=== PATIENT | female | born 1940 | race Caucasian/White ===

== ENCOUNTER 2016-11-28 08:43 | Inpatient (IN) | payer MEDICARE, OTHER ==
[~2016-11-28] VITALS: Ht 157.5 cm; Wt 74.6 kg
[2016-12-01] MEDS ORDERED: MIRALAX *UNIT DOSE* 17GM PACKET PO PRN (14:30)
[2016-12-01 15:15] VITALS: BP 169/72
[2016-12-01] MEDS: BRINZOLAMIDE 1 % OPHTH SUSP (AZOPT) 10ML OD SCH ×2 (16:00→20:31)
[2016-12-01] MEDS: cloNIDine 0.2 MG TAB PO SCH ×2 (16:00→20:30)
--- NOTE | 2016-12-01 16:33 | IPNPDOC ---
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 [Note: History obtained with the assistance of the patients daughterCatrina ] HISTORY OF PRESENT ILLNESS: Patient is a 76-year-old right hand dominant woman with a history of paroxysmal atrial fibrillation status post cardioversion on aspirin who was admitted to [facility] on 11/20/16 by her primary care physician with hypertension urgency. She had presented to her PCP due to persistently elevated blood pressure. Per the daughter she had also had an episode of lightheadedness the night before. Patient was provided with clonidine and labetalol in the office and sent to the emergency room. While at the hospital, patient had an episode of garbled speech and facial droop for which CT head was done and showed small left subarachnoid hemorrhage. The patient was transferred to [facility] were higher level of care. She was admitted to the neuro ICU service. She continued with episodic garbled speech. EEG was done without evidence of seizures. She began experiencing aphasia for which CT was done which was unchanged. MRA was also done and reportedly normal. After the MRA she began to develop right-sided weakness in addition to her aphasia. MRI of the [place] with brain was done and showed left MCA infarct. CT perfusion study was attempted after intubating the patient and premedicating her for her allergy. Patient also developed right lower extremity DVT during her [facility] on hospital stay. She was started on eliquis 5 mg twice a day. Hospital stay was also notable for difficulty controlling her blood pressure. She was discharged on 5 antihypertensive medications. She was also reportedly in urinary retention for which a Victor catheter was placed on 11/23/2016. Of note renal Doppler was done and negative for renal artery status stenosis, but technically difficult study. Due to significant decline in the patients baseline functional status and need for continued medical care, recommendation was for acute rehabilitation. On 2016 the patient was deemed stable for discharge to [facility] inpatient rehabilitation unit. PAST MEDICAL HISTORY: Hypertension Hypothyroidism Paroxysmal atrial fibrillation s/p cardioversion PAST SURGICAL HISTORY: Tonsillectomy many years ago Cardioversion many years ago. ALLERGIES: Contrast, shellfish, iodine MEDICATIONS: Hydrochlorothiazide 50 mg daily Norvasc 10 mg daily Eliquis 5 mg twice a day Lipitor 80 mg every evening Catapres 0.2 mg 3 times a day Labetalol 200 mg every 12 hours Cozaar 100 mg daily Magnesium gluconate 500 mg twice a day Synthyroid 15 g daily Potassium chloride 10 mEq daily Potassium citrate 10 mEq daily Azopt 1% 1 drop right eye tid Timolol 0.5% 1 drop both eyes qam Xalatan 0.005% 1 drop both eyes qpm FAMILY HISTORY: 2 daughters and 1 son, her son and daughter suffer from hypertension otherwise well. SOCIAL HISTORY: Patient lives in a two-story house, but there is a first floor set up. There are 2-3 steps to enter the house. Per the daughter they are able to build a ramp. Patient does not have a history of smoking, past or present. Per the daughter she has on history of rare/social alcohol use. No illicit drug use, past or present. Review of Systems: General: no chills, +fatigue, no weight changes. Eyes: no change of vision. Ears, Nose & Throat: no sore throat, decreased hearing or nasal discharge. Cardiovascular: no chest pain, claudication, syncopal episodes. Pul: +cough, no SOB. GI: no abdominal pain, N/V, +episode of diarrhea few days ago, last BM yesterday, formed. Genitourinary: currently w Victor for retention. Gynecological: no vaginal bleeding, post-menopausal . Musculoskeletal : no back/neck, no muscle pain. Neurological: +numbness right side, no tremors , seizures, HUTTON. Hematological: No bleeding disorders. Skin: no rashes. Psychiatric: no depression, anxiety, behavioral issues. VITAL SIGNS: Temperature 98.2F, pulse 59, respiratory rate of 18, blood pressure 169/72, 97% saturation on room air PHYSICAL EXAMINATION: GENERAL: Well nourished, well developed, sitting up in bed, no acute distress. HEENT: Normocephalic, atraumatic. +facial droop. PERRL, EOMI CARDIOVASCULAR: S1, S2, regular rate. No significant bilateral lower limb edema or calf tenderness. LUNGS: Decreased breath sounds throughout (possibly related to poor effort) no wheezing or rhonchi appreciated. ABDOMEN: Soft, nontender, nondistended. Positive normoactive bowel sounds throughout. NEUROLOGICAL: Alert and oriented to person and being in hospital. Able to answer yes or no, although answers not consistent. Comprehension about 50% of things asked. Dysarthric. Manual muscle testin/5 left upper and lower limbs in all major muscle groups, 0/5 right upper and lower limb in all major muscle groups. Sensation: Decreased right upper and lower limb to soft touch. Deep tendon reflexes: Unable to elicit patellar biceps bilaterally SKIN: Lg bruise left medial arm (prior PICC site). LABORATORY DATA: 11/21/2016: WBC count 8.1, hemoglobin 12.7, hematocrit 36.6 LDL 181 IMAGING: MRA of the brain: Brissa major arteries of the brain. No hemodynamically significant stenosis identified. There is no aneurysm or AV malformation or significant size dural fistula seen. No sinus thrombus seen. MRI of the brain: Left middle cerebral artery territory acute/subacute infarct. Left frontal lobe convexal subarachnoid nor hemorrhage. CT of the head: Expected evolution of known left MCA acute infarct without evidence of hemorrhagic transformation. No evidence of new territorial infarct. No significant interval change in the left frontal subarachnoid hemorrhage. CT perfusion: Perfusion deficit defect in the left temporoparietal lobe corresponding to the known acute infarct. No salvageable significant size penumbra seen. Focal narrowing in the middle left M1 segment. Posterior left vertebral artery appears occluded. Calcification is present in the carotid arteries and vertebral arteries associated with a focal narrowing in the In her segments of the internal carotid arteries especially on the right side where stenosis could easily be up to 50% severity. Chest x-ray: Persistent consolidation in the right infra inhaler area. Persistent consolidation in the left lower lobe. A small layering effusion is suspected. No definite definite evidence of edema. EKG: Sinus rhythm with sinus arrhythmia, left axis deviation, left bundle branch block, 77 beats per minute SERENA: There is no LA appendage thrombus. No patent foramen ovale. No aortic stenosis or regurgitation. Renal ultrasound: No hydronephrosis bilaterally. There is a 1.7 cm simple appearing cyst in the lower lobe of the left kidney. Doppler: Resistive indices in the right kidney are elevated with parvus tardua wave form. The right renal artery is only visualized at the hilum with velocities within normal limits. Flow is not optimally visualized or evaluated on the current study. ASSESSMENT AND PLAN: 1. Left MCA stroke, left frontal subarachnoid hemorrhage with resultant global aphasia, dysphagia, dysarthria, dense right hemiparesis, decreased mobility and dysfunctional ADLs: Maintain systolic blood pressure less than 140. Maintain eliquis as started at [facility]. Patient will undergo thorough physical, occupational and speech therapy evaluations followed by daily intensive therapy. Rehabilitation nursing for bladder, bowel, medication management. 2. Urinary retention: Will discontinue Victor catheter with bladder scans every 6 hours or PVRs, whichever comes first. Instruction provided to notify M.D. for volumes greater than 450cc. Will also obtain a sample for UA and culture. 3. Hypertension: As above, goal is for systolic blood pressure less than 140. She will continue patient on hydrochlorothiazide, Norvasc, Catapres, labetalol and losartan with adjustments as needed. 4. Electrolytes: Patient on potassium and magnesium supplementation. She is also noted to be on an ARB. Will obtain morning labs with adjustments/ supplementation as indicated. 5. Bowel: Patient was on bowel medications at [facility] and apparently had some loose stools several days ago. Her most recent stool was performed. Well maintain her on scheduled Colace and senna with milk of magnesia and MiraLAX on an as-needed basis. 6. Left lower limb DVT: Continued eliquis twice a day 7. Paroxysmal atrial fibrillation: Currently rate controlled and regular. Continue beta ja. Continue eliquis. 8. Diet/nutrition: Well obtain a prealbumin with morning labs. Continue pured diet, honey thick liquids, low-fat low-cholesterol. Nutritional supplements as indicated. POST ADMISSION PHYSICIAN EVALUATION: On evaluation of the patient today there' ve been no significant functional changes as compared to those noted in the preadmission screening document. As compared to the preadmission screening, the patient is a Victor catheter which was reportedly placed for urinary retention. This patient's inpatient rehabilitation remains necessary in light of the above conditions. The patient's medical condition requires specialized care with physicians specially trained in physical medicine rehabilitation. The patient is capable motivated to participate in a minimum of 3 hours of therapy daily, 5 days minimum per week, and requires intensive inpatient rehabilitation to improve their functional status so that they can be safely to discharge back to their home. PROGNOSIS: Fair ESTIMATED LENGTH OF STAY: 21 days. / Vital Signs Vital Sign - Last 24 Hours 12/01/16 15:15 Temp 98.2 Pulse 59 Resp 18 B/P 169/72 Pulse Ox 97 O2 Delivery Room Air Current Medications Current Medications Current Medications Acetaminophen (Tylenol Tab) 650 mg Q4HP PRN PO MILD PAIN (PS 1-4); Start at 14:30; Stop 12/31/16 at 14:29; Status UNV Amlodipine Besylate (Norvasc) 10 mg DAILY PO ; Start 12/02/16 at 09:00; Stop at 08:59; Status UNV Apixaban (Eliquis) 5 mg BID PO ; Start 12/01/16 at 21:00; Stop 12/08/16 at 20:59 ; Status UNV Atorvastatin Calcium (Lipitor) 80 mg QHS PO ; Start 12/01/16 at 21:00; Stop 09/06 at 20:59; Status UNV Brinzolamide (Azopt) 1 drop TID OD ; Start 12/01/16 at 16:00; Stop 12/31/16 at 15:59; Status UNV Clonidine HCl (Catapres) 0.2 mg TID PO ; Start 12/01/16 at 16:00; Stop 12/31/16 at 15:59; Status UNV Docusate Sodium (Colace) 100 mg BID PO ; Start 12/01/16 at 21:00; Stop 12/31/16 at 20:59; Status UNV Hydrochlorothiazide (Hydrodiuril) 25 mg DAILY PO ; Start 12/02/16 at 09:00; Stop 01/01/17 at 08:59; Status UNV Labetalol HCl (Normodyne, Trandate) 200 mg BID PO ; Start 12/01/16 at 21:00; Stop 12/31/16 at 20:59; Status UNV Latanoprost (Xalatan 0.005% Op Soln) 1 drop QHS OU ; Start 12/01/16 at 21:00; Stop 12/31/16 at 20:59; Status UNV Levothyroxine Sodium (Synthroid) 0.05 mg DAILY@06 PO ; Start 12/02/16 at 06:00; Stop 01/01/17 at 05:59; Status UNV Losartan Potassium (Cozaar) 100 mg DAILY PO ; Start 12/02/16 at 09:00; Stop at 08:59; Status UNV Magnesium Gluconate (Magnesium Gluconate) 500 mg BID PO ; Start 12/01/16 at 21: 00; Stop 12/31/16 at 20:59; Status UNV Magnesium Hydroxide (Milk Of Magnesia) 30 ml DAILYPRN PRN PO CONSTIPATION; Start 12/01/16 at 14:30; Stop 12/31/16 at 14:29; Status UNV Miscellaneous (Unresolved Clarification Entry) SEE LABEL COMMENTS UNRESOLVED XX ; Start 12/01/16 at 00:01; Stop 12/31/16 at 00:00 Pantoprazole Sodium (Protonix) 40 mg DAILY PO ; Start 12/02/16 at 09:00; Stop at 08:59; Status UNV Polyethylene Glycol (Miralax) 1 pkt DAILY PRN PO CONSTIPATION; Start 12/01/16 at 14:30; Stop 12/31/16 at 14:29; Status UNV Potassium Chloride (Micro-K Extencaps) 10 meq DAILY PO ; Start 12/02/16 at 09:00 ; Stop 01/01/17 at 08:59; Status UNV Potassium Citrate (Urocit-K) 1,080 mg DAILY@08 PO ; Start 12/02/16 at 08:00; Stop 01/01/17 at 07:59; Status UNV Senna (Senokot) 1 tab QHS PO ; Start 12/01/16 at 21:00; Stop 12/31/16 at 20:59; Status UNV Timolol Maleate (Timoptic 0.5% Ophth Janine) 1 drop DAILY OU ; Start 12/02/16 at 09 :00; Stop 01/01/17 at 08:59; Status UNV LORE GAINES MD Dec 01, 2016 16:32
[2016-12-01] MEDS ORDERED: AMLO10TA2 PO (17:40)
[2016-12-01] MEDS ORDERED: ATOR1TAB18 PO (17:40)
[2016-12-01] MEDS ORDERED: HYDR50TAB PO (17:40)
[2016-12-01] MEDS ORDERED: CLON0.2T PO (17:40)
[2016-12-01] MEDS ORDERED: ELIQ5TAB PO (17:40)
[2016-12-01] MEDS ORDERED: LOSA100T36 PO (17:40)
[2016-12-01] MEDS ORDERED: MAGN500T PO (17:40)
[2016-12-01] MEDS ORDERED: LABE20TAB PO (17:42)
[2016-12-01] MEDS ORDERED: VITA10005 PO (17:50)
[2016-12-01] MEDS ORDERED: AZOP0.2S OD (17:50)
[2016-12-01] MEDS ORDERED: POTA10TAB PO (17:50)
[2016-12-01] MEDS ORDERED: LEVO50TA45 PO (17:50)
[2016-12-01] MEDS ORDERED: LATA5OPD OU (17:50)
[2016-12-01] MEDS ORDERED: ISTA0.5S OU (17:50)
[2016-12-01] MEDS ORDERED: POTA10CA PO (17:50)
[2016-12-01] MEDS: PANTOPRAZOLE 40MG TAB (PROTONIX) PO SCH (18:33)
[2016-12-01 20:00] VITALS: BP 170/74
[2016-12-01] MEDS: MAGNESIUM GLUCONATE 500 MG TAB PO SCH (20:29)
[2016-12-01] MEDS: ATORVASTATIN 20 MG TAB PO SCH (20:29)
[2016-12-01] MEDS: LABETALOL 200 MG TAB PO SCH (20:30)
[2016-12-01] MEDS: APIXABAN 5 MG TAB (ELIQUIS) PO SCH (20:30)
[2016-12-01] MEDS: SENNA 8.6 MG TAB (SENOKOT) PO SCH (20:30)
[2016-12-01] MEDS: DOCUSATE SODIUM 100 MG CAP PO SCH (20:31)
[2016-12-01] MEDS: LATANOPROST 0.005% OPHTH SOLN 2.5 ML OU SCH (20:31)
[2016-12-01 21:50] VITALS: BP 150/60
[2016-12-02] MEDS: LEVOTHYROXINE 0.05 MG TAB (50 MCG) PO SCH (05:53)
[2016-12-02 06:00] VITALS: BP 170/72
[2016-12-02 07:29] LABS: MEAN CORPUSCULAR HEMOGLOBIN 30.1 pg (27.0-33.0); MEAN CORPUSCULAR HGB CONC 34.4 g/dl (32.0-36.5); MEAN CORPUSCULAR VOLUME 87.4 fl (80.0-96.0); RED CELL DISTRIBUTION WIDTH 14.3 % (11.5-14.5); WHITE BLOOD COUNT 9.4 K/mm3 (4.0-10.0)
[2016-12-02 07:51] LABS: CALCIUM LEVEL 8.7 MG/DL (8.8-10.2); CREATININE FOR GFR 1.09 MG/DL (0.55-1.02); GLOMERULAR FILTRATION RATE 52.1 (>39)
[2016-12-02] MEDS: POTASSIUM CITRATE 1080 MG (10MEQ) TAB PO SCH (08:38)
[2016-12-02] MEDS: TIMOLOL MALEATE 0.5% OPHTH SOLN 5 ML OU SCH (08:42)
[2016-12-02] MEDS: MAGNESIUM GLUCONATE 500 MG TAB PO SCH ×2 (08:42→21:30)
[2016-12-02] MEDS: APIXABAN 5 MG TAB (ELIQUIS) PO SCH ×2 (08:43→21:32)
[2016-12-02] MEDS: POTASSIUM CHLORIDE 10 MEQ SR TABLET PO SCH (08:43)
[2016-12-02] MEDS: PANTOPRAZOLE 40MG TAB (PROTONIX) PO SCH (08:44)
[2016-12-02] MEDS: LABETALOL 200 MG TAB PO SCH ×2 (08:49→21:31)
[2016-12-02] MEDS: amLODIPine 10 MG TAB PO SCH (08:49)
[2016-12-02] MEDS: LOSARTAN 50 MG TAB PO SCH (08:50)
[2016-12-02] MEDS: hydroCHLOROthiazide 25 MG TAB PO SCH (08:50)
[2016-12-02] MEDS: DOCUSATE SODIUM 100 MG CAP PO SCH ×2 (08:51→21:32)
[2016-12-02] MEDS: cloNIDine 0.2 MG TAB PO SCH ×3 (08:51→17:46)
[2016-12-02] MEDS: BRINZOLAMIDE 1 % OPHTH SUSP (AZOPT) 10ML OD SCH ×3 (08:51→21:32)
[2016-12-02 09:45] VITALS: BP 174/66
[2016-12-02] MEDS ORDERED: cloNIDine 0.1 MG TAB PO ONE (10:00)
[2016-12-02 12:24] VITALS: BP 118/50
--- NOTE | 2016-12-02 12:49 | IPNPDOC ---
Manager Spa Progress Note PROGRESS NOTE DATE OF SERVICE: 12/02/16 IDENTIFICATION STATEMENT: Patient is a 76-year-old right hand dominant woman with left MCA infarct admitted for comprehensive integrated inpatient rehabilitation. PAST MEDICAL HISTORY: Hypertension Hypothyroidism Paroxysmal atrial fibrillation s/p cardioversion PAST SURGICAL HISTORY: Tonsillectomy many years ago Cardioversion many years ago. ALLERGIES: Contrast, shellfish, iodine MEDICATIONS: Hydrochlorothiazide 25 mg daily Norvasc 10 mg daily Eliquis 5 mg twice a day Lipitor 80 mg every evening Catapres 0.2 mg qid Labetalol 400 mg every 12 hours Cozaar 100 mg daily Magnesium gluconate 500 mg twice a day Synthroid 15 g daily Potassium chloride 10 mEq daily Potassium citrate 10 mEq daily Azopt 1% 1 drop right eye tid Timolol 0.5% 1 drop both eyes qam Xalatan 0.005% 1 drop both eyes qpm SUBJECTIVE: Patient does not indicate any specific complaints. Via yes or no answers denies any CP, SOB, N/V, abdominal pain, HUTTON. VITAL SIGNS: Temperature 98.7F, pulse 64, respiratory rate of 18, blood pressure 118/50, 93% saturation on room air PHYSICAL EXAMINATION: GENERAL: Well nourished, well developed, sitting up in recliner, no acute distress. HEENT: Normocephalic, atraumatic. +facial droop (unchanged). PERRL, EOMI CARDIOVASCULAR: S1, S2, regular rate. No significant bilateral lower limb edema or calf tenderness. LUNGS: Decreased breath sounds throughout (possibly related to poor effort) no wheezing or rhonchi appreciated. ABDOMEN: Soft, nontender, nondistended. Positive normoactive bowel sounds throughout. NEUROLOGICAL: Alert and oriented to person and being in hospital. Able to answer yes or no, answers not consistent. Dysarthric. MMT: 5/5 left upper and lower limbs in all major muscle groups, 0/5 right upper and lower limb in all major muscle groups. SKIN: Lg bruise left medial arm (prior PICC site). LABORATORY DATA: 12/02/16: reviewed, see below. 11/21/2016: WBC count 8.1, hemoglobin 12.7, hematocrit 36.6 LDL 181 IMAGING: MRA of the brain: Brissa major arteries of the brain. No hemodynamically significant stenosis identified. There is no aneurysm or AV malformation or significant size dural fistula seen. No sinus thrombus seen. MRI of the brain: Left middle cerebral artery territory acute/subacute infarct. Left frontal lobe convexal subarachnoid nor hemorrhage. CT of the head: Expected evolution of known left MCA acute infarct without evidence of hemorrhagic transformation. No evidence of new territorial infarct. No significant interval change in the left frontal subarachnoid hemorrhage. CT perfusion: Perfusion deficit defect in the left temporoparietal lobe corresponding to the known acute infarct. No salvageable significant size penumbra seen. Focal narrowing in the middle left M1 segment. Posterior left vertebral artery appears occluded. Calcification is present in the carotid arteries and vertebral arteries associated with a focal narrowing in the In her segments of the internal carotid arteries especially on the right side where stenosis could easily be up to 50% severity. Chest x-ray: Persistent consolidation in the right infra inhaler area. Persistent consolidation in the left lower lobe. A small layering effusion is suspected. No definite definite evidence of edema. EKG: Sinus rhythm with sinus arrhythmia, left axis deviation, left bundle branch block, 77 beats per minute SERENA: There is no LA appendage thrombus. No patent foramen ovale. No aortic stenosis or regurgitation. Renal ultrasound: No hydronephrosis bilaterally. There is a 1.7 cm simple appearing cyst in the lower lobe of the left kidney. Doppler: Resistive indices in the right kidney are elevated with parvus tardua wave form. The right renal artery is only visualized at the hilum with velocities within normal limits. Flow is not optimally visualized or evaluated on the current study. ASSESSMENT AND PLAN: 1. Left MCA stroke, left frontal subarachnoid hemorrhage with resultant global aphasia, dysphagia, dysarthria, dense right hemiparesis, decreased mobility and dysfunctional ADLs: Maintain systolic blood pressure less than 140. Maintain eliquis. Continue daily therapies. Rehabilitation nursing for bladder, bowel, medication management. 2. Urinary retention: Discontinued Victor catheter last night. No significant retention thus far. 3. Hypertension: As above, goal is for systolic blood pressure less than 140. Improved s/p increase catapres. Continue hydrochlorothiazide, Norvasc, labetalol and losartan with adjustments as needed. 4. Electrolytes: Patient on potassium and magnesium supplementation. She is also noted to be on an ARB. If potassium increases will d/c potassium chloride supplementation. 5. Bowel: Continue scheduled Colace and senna with milk of magnesia and MiraLAX on an as-needed basis. 6. Left lower limb DVT: Continued eliquis twice a day 7. Paroxysmal atrial fibrillation: Currently rate controlled and regular. Continue beta aj. Continue eliquis. 8. Diet/nutrition: Prealbumin wnl. Continue pured diet, honey thick liquids, low-fat low-cholesterol. / Vital Signs Vital Sign - Last 24 Hours 12/01/16 12/01/16 12/01/16 12/01/16 15:15 20:00 20:00 20:30 Temp 98.2 98.6 Pulse 59 60 60 Resp 18 18 B/P 169/72 170/74 170/74 Pulse Ox 97 95 O2 Delivery Room Air Room Air Room Air 12/01/16 12/02/16 12/02/16 12/02/16 21:50 06:00 08:49 09:45 Temp 98.7 Pulse 63 64 64 Resp 18 B/P 150/60 170/72 164/70 174/66 Pulse Ox 93 O2 Delivery Room Air 12/02/16 12/02/16 12/02/16 12/02/16 10:06 10:55 12:00 12:24 Pulse 64 B/P 174/66 118/50 118/50 O2 Delivery Room Air Laboratory Data CBC/BMP Laboratory Tests 12/02/16 07:07 Calcium Level 8.7 L, Red Blood Count 3.63 L, Mean Corpuscular Volume 87.4, Mean Corpuscular Hemoglobin 30.1, Mean Corpuscular Hemoglobin Concent 34.4, Red Cell Distribution Width 14.3 Labs 24H Laboratory Tests 2 12/01/16 18:01: Urine Amorphous Sediment SMALLH, Urine Appearance CLEAR, Urine Color STRAW, Urine pH 7.0, Urine Specific [place] 1.012, Urine Protein NEGATIVE, Urine Glucose (UA) NEGATIVE, Urine Ketones NEGATIVE, Urine Urobilinogen 0.2, Urine Bilirubin NEGATIVE, Urine Leukocyte Esterase NEGATIVE, Urine Bacteria (Auto) 1+H , Urine Blood 2+H, Urine Calcium Carbonate Cryst(Auto) , Urine Calcium Oxalate Cryst (Auto) , Urine Calcium Phosphate Laura (Auto) , Urine Cellular Casts , Urine Cystine Crystals , Urine Granular Casts (Auto) , Urine Hyaline Casts (Auto ) 0, Urine Leucine Crystals , Urine Mucus (Auto) SMALL, Urine Nitrite NEGATIVE, Urine Oval Fat Bodies (Auto) , Urine RBC (Auto) 121H, Urine Renal Epithelial Cells , Urine Sperm (Auto) , Urine Squamous Epithelial Cells 0, Urine Transitional Epithelial Cells , Urine Trichomonas (Auto) , Urine Triple Phosphate Cryst (Auto) , Urine Tyrosine Crystals , Urine Uric Acid Crystals ( Auto) , Urine WBC (Auto) 3, Urine Waxy Casts (Auto) , Urine Yeast-Like Cells ( Auto) 12/02/16 07:07: Anion Gap 10, Blood Urea Nitrogen 22H, Creatinine 1.09H, Sodium Level 142, Potassium Level 4.0, Chloride Level 107, Carbon Dioxide Level 25, Calcium Level 8.7L, Glomerular Filtration Rate 52.1, Prealbumin 22.4 Microbiology Microbiology 12/01/16 Urine Culture, Received Pending Allergies Allergies: Coded Allergies: Iodine (Verified Allergy, Unknown, 12/01/16) Salicylates (Verified Allergy, Unknown, 12/01/16) Shellfish Allergy (Verified Allergy, Unknown, 12/01/16) Current Medications Current Medications Current Medications Acetaminophen (Tylenol Tab) 650 mg Q4HP PRN PO MILD PAIN (PS 1-4); Start at 14:30; Stop 12/31/16 at 14:29 Amlodipine Besylate (Norvasc) 10 mg DAILY PO Last administered on 12/02/16 08: 49; Start 12/02/16 at 09:00; Stop 01/01/17 at 08:59 Apixaban (Eliquis) 5 mg BID PO Last administered on 12/02/16 08:43; Start at 21:00; Stop 12/08/16 at 20:59 Atorvastatin Calcium (Lipitor) 80 mg QHS PO Last administered on 12/01/16 20: 29; Start 12/01/16 at 21:00; Stop 12/31/16 at 20:59 Brinzolamide (Azopt) 1 drop TID OD Last administered on 12/02/16 08:51; Start 12/01/16 at 16:00; Stop 12/31/16 at 15:59 Clonidine HCl (Catapres) 0.2 mg Q6H PO ; Start 12/02/16 at 12:00 Clonidine HCl (Catapres) 0.2 mg TID PO Last administered on 12/02/16 08:51; Start 12/01/16 at 16:00; Stop 12/02/16 at 09:31; Status DC Docusate Sodium (Colace) 100 mg BID PO Last administered on 12/01/16 20:31; Start 12/01/16 at 21:00; Stop 12/31/16 at 20:59 Home Med (Med Rec Complete!) ASDIRECTED XX ; Start 12/01/16 at 18:00; Stop at 18:00; Status DC Hydrochlorothiazide (Hydrodiuril) 25 mg DAILY PO Last administered on 08:50; Start 12/02/16 at 09:00; Stop 01/01/17 at 08:59 Labetalol HCl (Normodyne, Trandate) 400 mg BID PO Last administered on 08:49; Start 12/01/16 at 21:00; Stop 12/31/16 at 20:59 Latanoprost (Xalatan 0.005% Op Soln) 1 drop QHS OU Last administered on 20:31; Start 12/01/16 at 21:00; Stop 12/31/16 at 20:59 Levothyroxine Sodium (Synthroid) 0.05 mg DAILY@06 PO Last administered on 05:53; Start 12/02/16 at 06:00; Stop 01/01/17 at 05:59 Losartan Potassium (Cozaar) 100 mg DAILY PO Last administered on 12/02/16 08: 50; Start 12/02/16 at 09:00; Stop 01/01/17 at 08:59 Magnesium Gluconate (Magnesium Gluconate) 500 mg BID PO Last administered on 08:42; Start 12/01/16 at 21:00; Stop 12/31/16 at 20:59 Magnesium Hydroxide (Milk Of Magnesia) 30 ml DAILYPRN PRN PO CONSTIPATION; Start 12/01/16 at 14:30; Stop 12/31/16 at 14:29 Miscellaneous (Unresolved Clarification Entry) SEE LABEL COMMENTS UNRESOLVED XX ; Start 12/01/16 at 00:01; Stop 12/01/16 at 17:54; Status DC Pantoprazole Sodium (Protonix) 40 mg DAILY PO Last administered on 12/02/16 08 :44; Start 12/01/16 at 09:00; Stop 12/31/16 at 08:59 Polyethylene Glycol (Miralax) 1 pkt DAILYPRN PRN PO CONSTIPATION; Start at 14:30; Stop 12/31/16 at 14:29 Potassium Chloride (Micro-K Extencaps) 10 meq DAILY PO Last administered on 08:43; Start 12/02/16 at 09:00; Stop 01/01/17 at 08:59 Potassium Citrate (Urocit-K) 1,080 mg DAILY@08 PO Last administered on 08:38; Start 12/02/16 at 08:00; Stop 01/01/17 at 07:59 Senna (Senokot) 1 tab QHS PO Last administered on 12/01/16 20:30; Start at 21:00; Stop 12/31/16 at 20:59 Timolol Maleate (Timoptic 0.5% Ophth Janine) 1 drop DAILY OU Last administered on 12/02/16 08:42; Start 12/02/16 at 09:00; Stop 01/01/17 at 08:59 LORE GAINES MD Dec 02, 2016 12:49
[2016-12-02 14:00] VITALS: BP 125/68
[2016-12-02 17:45] VITALS: BP 140/62
[2016-12-02 20:00] VITALS: BP 170/62
[2016-12-02] MEDS: ATORVASTATIN 20 MG TAB PO SCH (21:30)
[2016-12-02] MEDS: SENNA 8.6 MG TAB (SENOKOT) PO SCH (21:32)
[2016-12-02] MEDS: LATANOPROST 0.005% OPHTH SOLN 2.5 ML OU SCH (21:32)
[2016-12-03] MEDS: cloNIDine 0.2 MG TAB PO SCH ×4 (00:06→17:34)
[2016-12-03] MEDS: LEVOTHYROXINE 0.05 MG TAB (50 MCG) PO SCH (06:13)
[2016-12-03] MEDS: DOCUSATE SODIUM 100 MG CAP PO SCH ×2 (08:09→21:47)
[2016-12-03 08:26] LABS: MEAN CORPUSCULAR HEMOGLOBIN 28.9 pg (27.0-33.0); MEAN CORPUSCULAR HGB CONC 32.9 g/dl (32.0-36.5); MEAN CORPUSCULAR VOLUME 87.7 fl (80.0-96.0); RED CELL DISTRIBUTION WIDTH 14.1 % (11.5-14.5)
[2016-12-03 08:28] LABS: CREATININE FOR GFR 1.35 MG/DL (0.55-1.02); GLOMERULAR FILTRATION RATE 40.7 (>39); POTASSIUM SERUM 3.7 MEQ/L (3.5-5.1)
[2016-12-03] MEDS: POTASSIUM CHLORIDE 10 MEQ SR TABLET PO SCH (09:22)
[2016-12-03] MEDS: POTASSIUM CITRATE 1080 MG (10MEQ) TAB PO SCH (09:22)
[2016-12-03] MEDS: LOSARTAN 50 MG TAB PO SCH (09:23)
[2016-12-03] MEDS: LABETALOL 200 MG TAB PO SCH ×2 (09:23→21:46)
[2016-12-03] MEDS: APIXABAN 5 MG TAB (ELIQUIS) PO SCH ×2 (09:24→21:46)
[2016-12-03] MEDS: PANTOPRAZOLE 40MG TAB (PROTONIX) PO SCH (09:24)
[2016-12-03] MEDS: hydroCHLOROthiazide 25 MG TAB PO SCH (09:24)
[2016-12-03] MEDS: amLODIPine 10 MG TAB PO SCH (09:24)
[2016-12-03] MEDS: BRINZOLAMIDE 1 % OPHTH SUSP (AZOPT) 10ML OD SCH ×3 (09:24→21:55)
[2016-12-03] MEDS: MAGNESIUM GLUCONATE 500 MG TAB PO SCH ×2 (09:24→21:46)
[2016-12-03] MEDS: TIMOLOL MALEATE 0.5% OPHTH SOLN 5 ML OU SCH (09:25)
--- NOTE | 2016-12-03 12:07 | IPNPDOC ---
Schedule Manager Progress Note PROGRESS NOTE DATE OF SERVICE: 12/03/16 IDENTIFICATION STATEMENT: Patient is a 76-year-old right hand dominant woman with left MCA infarct admitted for comprehensive integrated inpatient rehabilitation. PAST MEDICAL HISTORY: Hypertension Hypothyroidism Paroxysmal atrial fibrillation s/p cardioversion PAST SURGICAL HISTORY: Tonsillectomy many years ago Cardioversion many years ago. ALLERGIES: Contrast, shellfish, iodine MEDICATIONS: Hydrochlorothiazide 25 mg daily Norvasc 10 mg daily Catapres 0.2 mg qid Labetalol 400 mg every 12 hours Cozaar 100 mg daily Eliquis 5 mg twice a day Lipitor 80 mg every evening Magnesium gluconate 500 mg twice a day Synthroid 15 g daily Potassium chloride 10 mEq daily Potassium citrate 10 mEq daily Azopt 1% 1 drop right eye tid Timolol 0.5% 1 drop both eyes qam Xalatan 0.005% 1 drop both eyes qpm SUBJECTIVE: Patient does any issues. Denies any CP, SOB, N/V, abdominal pain, HUTTON. When asked how she felt said good VITAL SIGNS: Temperature 98.1F, pulse 80, respiratory rate of 17, blood pressure 152/79, 95% saturation on room air PHYSICAL EXAMINATION: GENERAL: Well nourished, well developed, sitting up in recliner, no acute distress. HEENT: Normocephalic, atraumatic. +right facial droop (unchanged). PERRL, EOMI CARDIOVASCULAR: S1, S2, regular rate. No significant bilateral lower limb edema or calf tenderness. LUNGS: Decreased breath sounds throughout (possibly related to poor effort) no wheezing or rhonchi appreciated. ABDOMEN: Soft, nontender, nondistended. Normoactive bowel sounds throughout. NEUROLOGICAL: Alert and oriented to person and being in hospital. Able to answer yes or no, answers remain inconsistent. Said good, dysarthric. MMT: 5/ 5 left upper and lower limbs in all major muscle groups, 0/5 right upper and lower limb in all major muscle groups. SKIN: Lg bruise left medial arm (prior PICC site), unchanged. LABORATORY DATA: 12/03/16: reviewed, see below. 11/21/2016: WBC count 8.1, hemoglobin 12.7, hematocrit 36.6 LDL 181 IMAGING: MRA of the brain: Brissa major arteries of the brain. No hemodynamically significant stenosis identified. There is no aneurysm or AV malformation or significant size dural fistula seen. No sinus thrombus seen. MRI of the brain: Left middle cerebral artery territory acute/subacute infarct. Left frontal lobe convexal subarachnoid nor hemorrhage. CT of the head: Expected evolution of known left MCA acute infarct without evidence of hemorrhagic transformation. No evidence of new territorial infarct. No significant interval change in the left frontal subarachnoid hemorrhage. CT perfusion: Perfusion deficit defect in the left temporoparietal lobe corresponding to the known acute infarct. No salvageable significant size penumbra seen. Focal narrowing in the middle left M1 segment. Posterior left vertebral artery appears occluded. Calcification is present in the carotid arteries and vertebral arteries associated with a focal narrowing in the In her segments of the internal carotid arteries especially on the right side where stenosis could easily be up to 50% severity. Chest x-ray: Persistent consolidation in the right infra inhaler area. Persistent consolidation in the left lower lobe. A small layering effusion is suspected. No definite definite evidence of edema. EKG: Sinus rhythm with sinus arrhythmia, left axis deviation, left bundle branch block, 77 beats per minute SERENA: There is no LA appendage thrombus. No patent foramen ovale. No aortic stenosis or regurgitation. Renal ultrasound: No hydronephrosis bilaterally. There is a 1.7 cm simple appearing cyst in the lower lobe of the left kidney. Doppler: Resistive indices in the right kidney are elevated with parvus tardua wave form. The right renal artery is only visualized at the hilum with velocities within normal limits. Flow is not optimally visualized or evaluated on the current study. ASSESSMENT AND PLAN: 1. Left MCA stroke, left frontal subarachnoid hemorrhage with resultant global aphasia, dysphagia, dysarthria, dense right hemiparesis, decreased mobility and dysfunctional ADLs: Maintain systolic blood pressure less than 140. Maintain eliquis. Continue daily therapies. Rehabilitation nursing for bladder, bowel, medication management. 2. ALEKSANDER: UCx neg. No retention. Likely prerenal (neg fluid balance via I&Os). Will hold HCTZ for now. Continue Cozaar for now. Will increase catapres if needed. Obtaining repeat swallow to see if patient can be upgraded to thin liq. 3. Urinary retention: Discontinued Victor catheter on day of admission. Only 1 scan out of 5 relative high. most recent w/o significant retention. Will d/c BS. 4. Hypertension: As above, goal is for systolic blood pressure less than 140. Improved s/p increase catapres. Continue Norvasc, labetalol and losartan. As above, holding HCTZ 2nd ALEKSANDER. Further adjustments as needed. 5. Electrolytes: Patient was on potassium, now d/cd 2nd d/c ing HCTZ. Awaiting Mag level, continue magnesium supplementation for now. 6. Bowel: Continue scheduled Colace and senna with milk of magnesia and MiraLAX on an as-needed basis. 7. Left lower limb DVT: Continued eliquis twice a day 8. Paroxysmal atrial fibrillation: Currently regular and rate controlled. Continue beta aj. Continue eliquis. 9. Diet/nutrition: Prealbumin wnl. Continue pured diet, honey thick liquids, low-fat low-cholesterol. Awaiting repeat swallow eval. / Vital Signs Vital Sign - Last 24 Hours 12/02/16 12/02/16 12/02/16 12/02/16 12:24 14:00 17:45 17:46 Temp 99.2 Pulse 64 62 59 Resp 18 B/P 118/50 125/68 140/62 140/62 Pulse Ox 96 O2 Delivery Room Air 12/02/16 12/02/16 12/02/16 12/03/16 20:00 20:00 21:31 00:06 Temp 98.5 Pulse 60 59 Resp 17 B/P 170/62 168/66 170/74 Pulse Ox 95 O2 Delivery Room Air Room Air 12/03/16 12/03/16 12/03/16 12/03/16 06:00 06:13 09:00 09:23 Temp 98.1 B/P 147/68 152/79 O2 Delivery Room Air 12/03/16 12/03/16 09:23 09:24 Pulse 80 80 B/P 152/79 152/79 Laboratory Data CBC/BMP Laboratory Tests 12/03/16 07:50 Calcium Level 9.0, Red Blood Count 3.67 L, Mean Corpuscular Volume 87.7, Mean Corpuscular Hemoglobin 28.9, Mean Corpuscular Hemoglobin Concent 32.9, Red Cell Distribution Width 14.1 Labs 24H Laboratory Tests 2 12/03/16 07:50: Anion Gap 11, Blood Urea Nitrogen 25H, Creatinine 1.35H, Sodium Level 140, Potassium Level 3.7, Chloride Level 104, Carbon Dioxide Level 25, Calcium Level 9.0, Glomerular Filtration Rate 40.7 Microbiology Microbiology 12/01/16 Urine Culture - Final, Complete Allergies Allergies: Coded Allergies: Iodine (Verified Allergy, Unknown, 12/01/16) Salicylates (Verified Allergy, Unknown, 12/01/16) Shellfish Allergy (Verified Allergy, Unknown, 12/01/16) Current Medications Current Medications Current Medications Acetaminophen (Tylenol Tab) 650 mg Q4HP PRN PO MILD PAIN (PS 1-4); Start at 14:30; Stop 12/31/16 at 14:29 Amlodipine Besylate (Norvasc) 10 mg DAILY PO Last administered on 12/03/16 09: 24; Start 12/02/16 at 09:00; Stop 01/01/17 at 08:59 Apixaban (Eliquis) 5 mg BID PO Last administered on 12/03/16 09:24; Start at 21:00; Stop 12/08/16 at 20:59 Atorvastatin Calcium (Lipitor) 80 mg QHS PO Last administered on 12/02/16 21: 30; Start 12/01/16 at 21:00; Stop 12/31/16 at 20:59 Brinzolamide (Azopt) 1 drop TID OD Last administered on 12/03/16 09:24; Start 12/01/16 at 16:00; Stop 12/31/16 at 15:59 Clonidine HCl (Catapres) 0.2 mg Q6H PO Last administered on 12/03/16 06:13; Start 12/02/16 at 12:00; Stop 01/01/17 at 11:59 Clonidine HCl (Catapres) 0.2 mg TID PO Last administered on 12/02/16 08:51; Start 12/01/16 at 16:00; Stop 12/02/16 at 09:31; Status DC Docusate Sodium (Colace) 100 mg BID PO Last administered on 12/02/16 21:32; Start 12/01/16 at 21:00; Stop 12/31/16 at 20:59 Home Med (Med Rec Complete!) ASDIRECTED XX ; Start 12/01/16 at 18:00; Stop at 18:00; Status DC Hydrochlorothiazide (Hydrodiuril) 25 mg DAILY PO Last administered on 09:24; Start 12/02/16 at 09:00; Stop 12/03/16 at 11:46; Status DC Labetalol HCl (Normodyne, Trandate) 400 mg BID PO Last administered on 09:23; Start 12/01/16 at 21:00; Stop 12/31/16 at 20:59 Latanoprost (Xalatan 0.005% Op Soln) 1 drop QHS OU Last administered on 21:32; Start 12/01/16 at 21:00; Stop 12/31/16 at 20:59 Levothyroxine Sodium (Synthroid) 0.05 mg DAILY@06 PO Last administered on 06:13; Start 12/02/16 at 06:00; Stop 01/01/17 at 05:59 Losartan Potassium (Cozaar) 100 mg DAILY PO Last administered on 12/03/16 09: 23; Start 12/02/16 at 09:00; Stop 01/01/17 at 08:59 Magnesium Gluconate (Magnesium Gluconate) 500 mg BID PO Last administered on 09:24; Start 12/01/16 at 21:00; Stop 12/31/16 at 20:59 Magnesium Hydroxide (Milk Of Magnesia) 30 ml DAILYPRN PRN PO CONSTIPATION; Start 12/01/16 at 14:30; Stop 12/31/16 at 14:29 Miscellaneous (Unresolved Clarification Entry) SEE LABEL COMMENTS UNRESOLVED XX ; Start 12/01/16 at 00:01; Stop 12/01/16 at 17:54; Status DC Pantoprazole Sodium (Protonix) 40 mg DAILY PO Last administered on 12/03/16 09 :24; Start 12/01/16 at 09:00; Stop 12/31/16 at 08:59 Polyethylene Glycol (Miralax) 1 pkt DAILYPRN PRN PO CONSTIPATION; Start at 14:30; Stop 12/31/16 at 14:29 Potassium Chloride (Micro-K Extencaps) 10 meq DAILY PO Last administered on 09:22; Start 12/02/16 at 09:00; Stop 12/03/16 at 12:00; Status DC Potassium Citrate (Urocit-K) 1,080 mg DAILY@08 PO Last administered on 09:22; Start 12/02/16 at 08:00; Stop 01/01/17 at 07:59 Senna (Senokot) 1 tab QHS PO Last administered on 12/02/16 21:32; Start at 21:00; Stop 12/31/16 at 20:59 Timolol Maleate (Timoptic 0.5% [facility]) 1 drop DAILY OU Last administered on 12/03/16 09:25; Start 12/02/16 at 09:00; Stop 01/01/17 at 08:59 LORE GAINES MD Dec 03, 2016 12:07
[2016-12-03 13:09] LABS: MAGNESIUM LEVEL 1.9 MG/DL (1.8-2.4)
[2016-12-03 14:01] VITALS: BP 110/53
[2016-12-03 20:00] VITALS: BP 144/63
[2016-12-03] MEDS: SENNA 8.6 MG TAB (SENOKOT) PO SCH (21:46)
[2016-12-03] MEDS: ATORVASTATIN 20 MG TAB PO SCH (21:46)
[2016-12-03] MEDS: LATANOPROST 0.005% OPHTH SOLN 2.5 ML OU SCH (21:55)
[2016-12-04] MEDS: cloNIDine 0.2 MG TAB PO SCH ×4 (00:27→18:38)
[2016-12-04 06:00] VITALS: BP 157/68
[2016-12-04] MEDS: LEVOTHYROXINE 0.05 MG TAB (50 MCG) PO SCH (06:36)
[2016-12-04 07:37] LABS: MEAN CORPUSCULAR HEMOGLOBIN 28.7 pg (27.0-33.0); MEAN CORPUSCULAR HGB CONC 33.1 g/dl (32.0-36.5); MEAN CORPUSCULAR VOLUME 86.6 fl (80.0-96.0); RED CELL DISTRIBUTION WIDTH 14.4 % (11.5-14.5)
[2016-12-04 07:58] LABS: CALCIUM LEVEL 9.2 MG/DL (8.8-10.2); CREATININE FOR GFR 1.56 MG/DL (0.55-1.02); GLOMERULAR FILTRATION RATE 34.4 (>39)
[2016-12-04] MEDS: POTASSIUM CITRATE 1080 MG (10MEQ) TAB PO SCH (08:52)
[2016-12-04] MEDS: amLODIPine 10 MG TAB PO SCH (08:52)
[2016-12-04] MEDS: PANTOPRAZOLE 40MG TAB (PROTONIX) PO SCH (08:53)
[2016-12-04] MEDS: APIXABAN 5 MG TAB (ELIQUIS) PO SCH ×2 (08:53→21:38)
[2016-12-04] MEDS: MAGNESIUM GLUCONATE 500 MG TAB PO SCH ×2 (08:53→21:38)
[2016-12-04] MEDS: LOSARTAN 50 MG TAB PO SCH (08:53)
[2016-12-04] MEDS: LABETALOL 200 MG TAB PO SCH ×2 (08:54→21:38)
[2016-12-04] MEDS: TIMOLOL MALEATE 0.5% OPHTH SOLN 5 ML OU SCH (08:56)
[2016-12-04] MEDS: DOCUSATE SODIUM 100 MG CAP PO SCH ×2 (08:56→21:38)
[2016-12-04] MEDS: BRINZOLAMIDE 1 % OPHTH SUSP (AZOPT) 10ML OD SCH ×3 (08:56→21:38)
[2016-12-04] MEDS ORDERED: VARIBAR PUDDING 40% w/v 230ML TUBE As Ordered ONE (10:35)
[2016-12-04] MEDS ORDERED: VARIBAR NECTAR 40% w/v 240ML SUSP BTL As Ordered ONE (10:36)
[2016-12-04] MEDS ORDERED: E-Z PAQUE 60% w/v SUSP 355ML BOTTLE As Ordered ONE (10:36)
[2016-12-04] MEDS: NS 1,000 ML IV SCH (11:21)
--- NOTE | 2016-12-04 11:44 | IPNPDOC ---
Pit Manager Progress Note PROGRESS NOTE DATE OF SERVICE: 12/04/16 IDENTIFICATION STATEMENT: Patient is a 76-year-old right hand dominant woman with left MCA infarct admitted for comprehensive integrated inpatient rehabilitation. PAST MEDICAL HISTORY: Hypertension Hypothyroidism Paroxysmal atrial fibrillation s/p cardioversion PAST SURGICAL HISTORY: Tonsillectomy many years ago Cardioversion many years ago. ALLERGIES: Contrast, shellfish, iodine MEDICATIONS: Hydrochlorothiazide 25 mg daily-on hold Norvasc 10 mg daily Catapres 0.2 mg qid Labetalol 400 mg every 12 hours Cozaar 100 mg daily Eliquis 5 mg twice a day Lipitor 80 mg every evening Magnesium gluconate 500 mg twice a day Synthroid 15 g daily Potassium chloride 10 mEq daily- on hold Potassium citrate 10 mEq daily Azopt 1% 1 drop right eye tid Timolol 0.5% 1 drop both eyes qam Xalatan 0.005% 1 drop both eyes qpm SUBJECTIVE: Denies any CP, SOB, N/V, abdominal pain, HUTTON. VITAL SIGNS: Temperature 98.1F, pulse 70, respiratory rate of 17, blood pressure 140/62, 95% saturation on room air PHYSICAL EXAMINATION: GENERAL: Well nourished, well developed, sitting up in recliner, no acute distress. HEENT: Normocephalic, atraumatic. +right facial droop (unchanged). PERRL, EOMI CARDIOVASCULAR: S1, S2, regular rate. No significant bilateral lower limb edema or calf tenderness. LUNGS: Decreased breath sounds throughout (possibly related to poor effort) no wheezing or rhonchi appreciated. ABDOMEN: Soft, nontender, nondistended. Normoactive bowel sounds throughout. NEUROLOGICAL: Alert and oriented to person and being in hospital. Able to answer yes or no, answers remain inconsistent. Dysarthric. MMT: 5/5 left upper and lower limbs in all major muscle groups, 0/5 right upper and lower limb in all major muscle groups. SKIN: Lg bruise left medial arm (prior PICC site), unchanged. LABORATORY DATA: 12/04/16: reviewed, see below. 11/21/2016: WBC count 8.1, hemoglobin 12.7, hematocrit 36.6 LDL 181 IMAGING: MRA of the brain: Brissa major arteries of the brain. No hemodynamically significant stenosis identified. There is no aneurysm or AV malformation or significant size dural fistula seen. No sinus thrombus seen. MRI of the brain: Left middle cerebral artery territory acute/subacute infarct. Left frontal lobe convexal subarachnoid nor hemorrhage. CT of the head: Expected evolution of known left MCA acute infarct without evidence of hemorrhagic transformation. No evidence of new territorial infarct. No significant interval change in the left frontal subarachnoid hemorrhage. CT perfusion: Perfusion deficit defect in the left temporoparietal lobe corresponding to the known acute infarct. No salvageable significant size penumbra seen. Focal narrowing in the middle left M1 segment. Posterior left vertebral artery appears occluded. Calcification is present in the carotid arteries and vertebral arteries associated with a focal narrowing in the In her segments of the internal carotid arteries especially on the right side where stenosis could easily be up to 50% severity. Chest x-ray: Persistent consolidation in the right infra inhaler area. Persistent consolidation in the left lower lobe. A small layering effusion is suspected. No definite definite evidence of edema. EKG: Sinus rhythm with sinus arrhythmia, left axis deviation, left bundle branch block, 77 beats per minute SERENA: There is no LA appendage thrombus. No patent foramen ovale. No aortic stenosis or regurgitation. Renal ultrasound: No hydronephrosis bilaterally. There is a 1.7 cm simple appearing cyst in the lower lobe of the left kidney. Doppler: Resistive indices in the right kidney are elevated with parvus tardua wave form. The right renal artery is only visualized at the hilum with velocities within normal limits. Flow is not optimally visualized or evaluated on the current study. ASSESSMENT AND PLAN: 1. Left MCA stroke, left frontal subarachnoid hemorrhage with resultant global aphasia, dysphagia, dysarthria, dense right hemiparesis, decreased mobility and dysfunctional ADLs: Maintain systolic blood pressure less than 140. Maintain eliquis. Continue daily therapies. Rehabilitation nursing for bladder, bowel, medication management. 2. ALEKSANDER: UCx neg. No retention. Likely prerenal (neg fluid balance via I&Os). Holding HCTZ for now. Gentle IV hydration, daily weights to monitor fluid balance. Continue Cozaar for now. Continue catapres current dose. S/p Barium swallow and cleared for thin liquids. 3. Urinary retention: Discontinued Victor catheter on day of admission and BS w/ o significant retention. 4. Hypertension: As above, goal is for systolic blood pressure less than 140. Improved s/p increase catapres. Continue Norvasc, labetalol and losartan. As above, holding HCTZ 2nd ALEKSANDER. Further adjustments as needed. 5. Electrolytes: Patient was on potassium, now d/cd 2nd d/c ing HCTZ. Awaiting Mag level, continue magnesium supplementation for now. 6. Bowel: Continue scheduled Colace and senna with milk of magnesia and MiraLAX on an as-needed basis. 7. Left lower limb DVT: Continued eliquis twice a day 8. Paroxysmal atrial fibrillation: Currently regular and rate controlled. Continue beta aj. Continue eliquis. 9. Diet/nutrition: Prealbumin wnl. Upgraded to [facility] soft, thin liquids. low-fat low-cholesterol. / Vital Signs Vital Sign - Last 24 Hours 12/03/16 12/03/16 12/03/16 12/03/16 12:00 14:01 17:34 20:00 Temp 98.3 98.2 Pulse 57 55 Resp 18 17 B/P 110/53 110/53 109/53 144/63 Pulse Ox 96 96 O2 Delivery Room Air Room Air 12/03/16 12/03/16 12/04/16 12/04/16 20:00 21:46 00:27 06:00 Temp 98.1 Pulse 55 67 Resp 17 B/P 144/63 160/70 157/68 Pulse Ox 95 O2 Delivery Room Air Room Air 12/04/16 12/04/16 12/04/16 06:36 08:00 08:52 Pulse 70 B/P 157/68 140/62 O2 Delivery Room Air Laboratory Data CBC/BMP Laboratory Tests 12/04/16 07:05 Calcium Level 9.2, Red Blood Count 3.69 L, Mean Corpuscular Volume 86.6, Mean Corpuscular Hemoglobin 28.7, Mean Corpuscular Hemoglobin Concent 33.1, Red Cell Distribution Width 14.4 Labs 24H Laboratory Tests 2 12/04/16 07:05: Anion Gap 11, Blood Urea Nitrogen 33H, Creatinine 1.56H, Sodium Level 139, Potassium Level 4.0, Chloride Level 102, Carbon Dioxide Level 26, Calcium Level 9.2, Glomerular Filtration Rate 34.4L Microbiology Microbiology 12/01/16 Urine Culture - Final, Complete Allergies Allergies: Coded Allergies: Iodine (Verified Allergy, Unknown, 12/01/16) Salicylates (Verified Allergy, Unknown, 12/01/16) Shellfish Allergy (Verified Allergy, Unknown, 12/01/16) Current Medications Current Medications Current Medications Acetaminophen (Tylenol Tab) 650 mg Q4HP PRN PO MILD PAIN (PS 1-4); Start at 14:30; Stop 12/31/16 at 14:29 Amlodipine Besylate (Norvasc) 10 mg DAILY PO Last administered on 12/04/16 08: 52; Start 12/02/16 at 09:00; Stop 01/01/17 at 08:59 Apixaban (Eliquis) 5 mg BID PO Last administered on 12/04/16 08:53; Start at 21:00; Stop 12/08/16 at 20:59 Atorvastatin Calcium (Lipitor) 80 mg QHS PO Last administered on 12/03/16 21: 46; Start 12/01/16 at 21:00; Stop 12/31/16 at 20:59 Brinzolamide (Azopt) 1 drop TID OD Last administered on 12/04/16 08:56; Start 12/01/16 at 16:00; Stop 12/31/16 at 15:59 Clonidine HCl (Catapres) 0.2 mg TID PO Last administered on 12/02/16 08:51; Start 12/01/16 at 16:00; Stop 12/02/16 at 09:31; Status DC Clonidine HCl 0.2 mg 0.2 mg Q6H PO Last administered on 12/04/16 06:36; Start 12/02/16 at 12:00; Stop 01/01/17 at 11:59 Docusate Sodium (Colace) 100 mg BID PO Last administered on 12/04/16 08:56; Start 12/01/16 at 21:00; Stop 12/31/16 at 20:59 Home Med (Med Rec Complete!) ASDIRECTED XX ; Start 12/01/16 at 18:00; Stop at 18:00; Status DC Hydrochlorothiazide (Hydrodiuril) 25 mg DAILY PO Last administered on 09:24; Start 12/02/16 at 09:00; Stop 12/03/16 at 11:46; Status DC Labetalol HCl (Normodyne, Trandate) 400 mg BID PO Last administered on 08:54; Start 12/01/16 at 21:00; Stop 12/31/16 at 20:59 Latanoprost (Xalatan 0.005% Op Soln) 1 drop QHS OU Last administered on 21:55; Start 12/01/16 at 21:00; Stop 12/31/16 at 20:59 Levothyroxine Sodium (Synthroid) 0.05 mg DAILY@06 PO Last administered on 06:36; Start 12/02/16 at 06:00; Stop 01/01/17 at 05:59 Losartan Potassium (Cozaar) 100 mg DAILY PO Last administered on 12/04/16 08: 53; Start 12/02/16 at 09:00; Stop 01/01/17 at 08:59 Magnesium Gluconate (Magnesium Gluconate) 500 mg BID PO Last administered on 08:53; Start 12/01/16 at 21:00; Stop 12/31/16 at 20:59 Magnesium Hydroxide (Milk Of Magnesia) 30 ml DAILYPRN PRN PO CONSTIPATION; Start 12/01/16 at 14:30; Stop 12/31/16 at 14:29 Miscellaneous (Unresolved Clarification Entry) SEE LABEL COMMENTS UNRESOLVED XX ; Start 12/01/16 at 00:01; Stop 12/01/16 at 17:54; Status DC Pantoprazole Sodium (Protonix) 40 mg DAILY PO Last administered on 12/04/16 08 :53; Start 12/01/16 at 09:00; Stop 12/31/16 at 08:59 Polyethylene Glycol (Miralax) 1 pkt DAILYPRN PRN PO CONSTIPATION; Start at 14:30; Stop 12/31/16 at 14:29 Potassium Chloride (Micro-K Extencaps) 10 meq DAILY PO Last administered on 09:22; Start 12/02/16 at 09:00; Stop 12/03/16 at 12:00; Status DC Potassium Citrate (Urocit-K) 1,080 mg DAILY@08 PO Last administered on 08:52; Start 12/02/16 at 08:00; Stop 01/01/17 at 07:59 Senna (Senokot) 1 tab QHS PO Last administered on 12/03/16 21:46; Start at 21:00; Stop 12/31/16 at 20:59 Sodium Chloride (Nacl 0.9%) 1,000 ml @ 50 mls/hr Q20H IV Last administered on 12/04/16 11:21; Start 12/04/16 at 09:15; Stop 01/03/17 at 09:14 Timolol Maleate (Timoptic 0.5% [facility]) 1 drop DAILY OU Last administered on 12/04/16 08:56; Start 12/02/16 at 09:00; Stop 01/01/17 at 08:59 LORE GAINES MD Dec 04, 2016 11:44
[2016-12-04 14:00] VITALS: BP 138/67
--- NOTE | 2016-12-04 15:04 | REP ---
MODIFIED BARIUM SWALLOW: HISTORY: CVA, dysphagia. Evaluate for aspiration. Study is performed in conjunction with the attending swallowing therapist. Fluoroscopy time is 1 minute 24 seconds. A single last image hold fluoroscopic spot radiograph was recorded. Cine fluoroscopy demonstrates some delay in the oral transfer phase. Once initiated however, there is no major motor discoordination of barium swallow. No tracheal aspiration or laryngeal penetration is appreciated. Signed by Bradly Desai MD 12/04/2016 05:38 P
[2016-12-04 20:00] VITALS: BP 157/69
[2016-12-04] MEDS: ATORVASTATIN 20 MG TAB PO SCH (21:36)
[2016-12-04] MEDS: SENNA 8.6 MG TAB (SENOKOT) PO SCH (21:38)
[2016-12-04] MEDS: LATANOPROST 0.005% OPHTH SOLN 2.5 ML OU SCH (21:39)
[2016-12-05] MEDS: cloNIDine 0.2 MG TAB PO SCH ×5 (00:55→23:25)
[2016-12-05] MEDS: LEVOTHYROXINE 0.05 MG TAB (50 MCG) PO SCH (05:44)
[2016-12-05 06:00] VITALS: BP 120/52
[2016-12-05] MEDS: NS 1,000 ML IV SCH (06:02)
[2016-12-05 07:44] LABS: MEAN CORPUSCULAR HEMOGLOBIN 29.3 pg (27.0-33.0); MEAN CORPUSCULAR HGB CONC 33.4 g/dl (32.0-36.5); MEAN CORPUSCULAR VOLUME 87.6 fl (80.0-96.0); RED CELL DISTRIBUTION WIDTH 14.3 % (11.5-14.5); WHITE BLOOD COUNT 7.4 K/mm3 (4.0-10.0)
[2016-12-05 07:52] LABS: CALCIUM LEVEL 8.6 MG/DL (8.8-10.2); CREATININE FOR GFR 1.22 MG/DL (0.55-1.02); GLOMERULAR FILTRATION RATE 45.7 (>39)
[2016-12-05] MEDS: LABETALOL 200 MG TAB PO SCH (09:00)
[2016-12-05] MEDS: POTASSIUM CITRATE 1080 MG (10MEQ) TAB PO SCH (09:07)
[2016-12-05] MEDS: PANTOPRAZOLE 40MG TAB (PROTONIX) PO SCH (09:08)
[2016-12-05] MEDS: LOSARTAN 50 MG TAB PO SCH (09:09)
[2016-12-05] MEDS: MAGNESIUM GLUCONATE 500 MG TAB PO SCH (09:09)
[2016-12-05] MEDS: DOCUSATE SODIUM 100 MG CAP PO SCH ×2 (09:09→21:58)
[2016-12-05] MEDS: APIXABAN 5 MG TAB (ELIQUIS) PO SCH ×2 (09:09→21:58)
[2016-12-05] MEDS: amLODIPine 10 MG TAB PO SCH (09:10)
[2016-12-05] MEDS: BRINZOLAMIDE 1 % OPHTH SUSP (AZOPT) 10ML OD SCH ×3 (09:10→21:57)
[2016-12-05] MEDS: TIMOLOL MALEATE 0.5% OPHTH SOLN 5 ML OU SCH (09:10)
--- NOTE | 2016-12-05 09:35 | IPNPDOC ---
Processing Manager Progress Note PROGRESS NOTE DATE OF SERVICE: 12/05/16 IDENTIFICATION STATEMENT: Patient is a 76-year-old right hand dominant woman with left MCA infarct admitted for comprehensive integrated inpatient rehabilitation. PAST MEDICAL HISTORY: Hypertension Hypothyroidism Paroxysmal atrial fibrillation s/p cardioversion PAST SURGICAL HISTORY: Tonsillectomy many years ago Cardioversion many years ago. ALLERGIES: Contrast, shellfish, iodine MEDICATIONS: Hydrochlorothiazide 25 mg daily-on hold Norvasc 10 mg daily Catapres 0.2 mg qid Labetalol 400 mg every 12 hours Cozaar 100 mg daily Eliquis 5 mg twice a day Lipitor 80 mg every evening Magnesium gluconate 500 mg twice a day Synthroid 15 g daily Potassium chloride 10 mEq daily- on hold Potassium citrate 10 mEq daily Azopt 1% 1 drop right eye tid Timolol 0.5% 1 drop both eyes qam Xalatan 0.005% 1 drop both eyes qpm SUBJECTIVE: Indicates that she feels good by nodding yes. Denies any CP, SOB, N/ V, abdominal pain, HUTTON. VITAL SIGNS: Temperature 98.1F, pulse 54, respiratory rate of 17, blood pressure 148/64, 96% saturation on room air. Wt 69.5kg PHYSICAL EXAMINATION: GENERAL: Well nourished, well developed, sitting up in recliner, no acute distress. HEENT: Normocephalic, atraumatic. +right facial droop (unchanged). PERRL, EOMI CARDIOVASCULAR: S1, S2, regular rate. No significant bilateral lower limb edema or calf tenderness. LUNGS: Decreased breath sounds throughout (probably related to poor effort 2nd to comprehension deficits), no wheezing or rhonchi appreciated. ABDOMEN: Soft, nontender, nondistended. Normoactive bowel sounds throughout. NEUROLOGICAL: Alert and oriented to person and being in hospital. Able to answer yes or no, answers continue to be inconsistent. Dysarthric. MMT: 5/5 left upper and lower limbs in all major muscle groups, 0/5 right upper and lower limb in all major muscle groups. SKIN: Lg bruise left medial arm (prior PICC site), decreased. LABORATORY DATA: 12/05/16: reviewed, see below. 11/21/2016: WBC count 8.1, hemoglobin 12.7, hematocrit 36.6 LDL 181 IMAGING: MRA of the brain: Brissa major arteries of the brain. No hemodynamically significant stenosis identified. There is no aneurysm or AV malformation or significant size dural fistula seen. No sinus thrombus seen. MRI of the brain: Left middle cerebral artery territory acute/subacute infarct. Left frontal lobe convexal subarachnoid nor hemorrhage. CT of the head: Expected evolution of known left MCA acute infarct without evidence of hemorrhagic transformation. No evidence of new territorial infarct. No significant interval change in the left frontal subarachnoid hemorrhage. CT perfusion: Perfusion deficit defect in the left temporoparietal lobe corresponding to the known acute infarct. No salvageable significant size penumbra seen. Focal narrowing in the middle left M1 segment. Posterior left vertebral artery appears occluded. Calcification is present in the carotid arteries and vertebral arteries associated with a focal narrowing in the In her segments of the internal carotid arteries especially on the right side where stenosis could easily be up to 50% severity. Chest x-ray: Persistent consolidation in the right infra inhaler area. Persistent consolidation in the left lower lobe. A small layering effusion is suspected. No definite definite evidence of edema. EKG: Sinus rhythm with sinus arrhythmia, left axis deviation, left bundle branch block, 77 beats per minute SERENA: There is no LA appendage thrombus. No patent foramen ovale. No aortic stenosis or regurgitation. Renal ultrasound: No hydronephrosis bilaterally. There is a 1.7 cm simple appearing cyst in the lower lobe of the left kidney. Doppler: Resistive indices in the right kidney are elevated with parvus tardua wave form. The right renal artery is only visualized at the hilum with velocities within normal limits. Flow is not optimally visualized or evaluated on the current study. ASSESSMENT AND PLAN: 1. Left MCA stroke, left frontal subarachnoid hemorrhage with resultant global aphasia, dysphagia, dysarthria, dense right hemiparesis, decreased mobility and dysfunctional ADLs: Maintain systolic blood pressure less than 140. Maintain eliquis. Continue daily therapies. Rehabilitation nursing for bladder, bowel, medication management. 2. ALEKSANDER: UCx neg. No retention. Improved with IVF and holding HCTZ. Continue gentle IV hydration, daily weights to monitor fluid balance. Continue Cozaar for now. Continue catapres current dose. S/p Barium swallow 12/04/16 and cleared for thin liquids. 3. Urinary retention: Discontinued Victor catheter on day of admission and BS w/ o significant retention. 4. Hypertension: As above, goal is for systolic blood pressure less than 140. Improved s/p increase catapres. Continue Norvasc and losartan current doses. Continue holding HCTZ 2nd ALEKSANDER. Given HR and BP, will decrease labetolol to 300mg bid. Further adjustments as needed. 5. Electrolytes: Patient was on potassium, now d/cd 2nd d/c ing HCTZ. Mag level wnl, d/cd magnesium supplementation for now. Recheck level on Thursday 6. Bowel: Continue scheduled Colace and senna with milk of magnesia and MiraLAX on an as-needed basis. 7. Left lower limb DVT: Continued eliquis twice a day 8. Paroxysmal atrial fibrillation: Currently regular and rate controlled. Continue beta aj. Continue eliquis. 9. Diet/nutrition: Prealbumin wnl. Upgraded to [facility] soft, thin liquids 12/04/16. low-fat low-cholesterol. / Vital Signs Vital Sign - Last 24 Hours 12/04/16 12/04/16 12/04/16 12/04/16 12:08 14:00 18:38 20:00 Temp 98.2 98.0 Pulse 57 56 Resp 18 18 B/P 128/70 138/67 140/60 157/69 Pulse Ox 98 97 O2 Delivery Room Air Room Air 12/04/16 12/04/16 12/05/16 12/05/16 21:00 21:38 00:55 05:44 Pulse 56 B/P 157/69 172/60 120/52 O2 Delivery Room Air 12/05/16 12/05/16 12/05/16 06:00 09:00 09:09 Temp 98.1 Pulse 64 54 Resp 17 B/P 120/52 148/64 148/64 Pulse Ox 96 O2 Delivery Room Air Laboratory Data CBC/BMP Laboratory Tests 12/05/16 07:12 Calcium Level 8.6 L, Red Blood Count 3.61 L, Mean Corpuscular Volume 87.6, Mean Corpuscular Hemoglobin 29.3, Mean Corpuscular Hemoglobin Concent 33.4, Red Cell Distribution Width 14.3 Labs 24H Laboratory Tests 2 12/05/16 07:12: Anion Gap 12, Blood Urea Nitrogen 30H, Creatinine 1.22H, Sodium Level 141, Potassium Level 4.0, Chloride Level 106, Carbon Dioxide Level 23, Calcium Level 8.6L, Glomerular Filtration Rate 45.7 Microbiology Microbiology 12/01/16 Urine Culture - Final, Complete Allergies Allergies: Coded Allergies: Iodine (Verified Allergy, Unknown, 12/01/16) Salicylates (Verified Allergy, Unknown, 12/01/16) Shellfish Allergy (Verified Allergy, Unknown, 12/01/16) Current Medications Current Medications Current Medications Acetaminophen (Tylenol Tab) 650 mg Q4HP PRN PO MILD PAIN (PS 1-4); Start at 14:30; Stop 12/31/16 at 14:29 Amlodipine Besylate (Norvasc) 10 mg DAILY PO Last administered on 12/05/16 09: 10; Start 12/02/16 at 09:00; Stop 01/01/17 at 08:59 Apixaban (Eliquis) 5 mg BID PO Last administered on 12/05/16 09:09; Start at 21:00; Stop 12/08/16 at 20:59 Atorvastatin Calcium (Lipitor) 80 mg QHS PO Last administered on 12/04/16 21: 36; Start 12/01/16 at 21:00; Stop 12/31/16 at 20:59 Brinzolamide (Azopt) 1 drop TID OD Last administered on 12/05/16 09:10; Start 12/01/16 at 16:00; Stop 12/31/16 at 15:59 Clonidine HCl (Catapres) 0.2 mg TID PO Last administered on 12/02/16 08:51; Start 12/01/16 at 16:00; Stop 12/02/16 at 09:31; Status DC Clonidine HCl 0.2 mg 0.2 mg Q6H PO Last administered on 12/05/16 05:44; Start 12/02/16 at 12:00; Stop 01/01/17 at 11:59 Docusate Sodium (Colace) 100 mg BID PO Last administered on 12/05/16 09:09; Start 12/01/16 at 21:00; Stop 12/31/16 at 20:59 Home Med (Med Rec Complete!) ASDIRECTED XX ; Start 12/01/16 at 18:00; Stop at 18:00; Status DC Hydrochlorothiazide (Hydrodiuril) 25 mg DAILY PO Last administered on 09:24; Start 12/02/16 at 09:00; Stop 12/03/16 at 11:46; Status DC Labetalol HCl (Normodyne, Trandate) 300 mg BID PO ; Start 12/05/16 at 21:00; Stop 01/04/17 at 20:59 Labetalol HCl (Normodyne, Trandate) 400 mg BID PO Last administered on 21:38; Start 12/01/16 at 21:00; Stop 12/05/16 at 09:28; Status DC Latanoprost (Xalatan 0.005% Op Soln) 1 drop QHS OU Last administered on 21:39; Start 12/01/16 at 21:00; Stop 12/31/16 at 20:59 Levothyroxine Sodium (Synthroid) 0.05 mg DAILY@06 PO Last administered on 05:44; Start 12/02/16 at 06:00; Stop 01/01/17 at 05:59 Losartan Potassium (Cozaar) 100 mg DAILY PO Last administered on 12/05/16 09: 09; Start 12/02/16 at 09:00; Stop 01/01/17 at 08:59 Magnesium Gluconate (Magnesium Gluconate) 500 mg BID PO Last administered on 09:09; Start 12/01/16 at 21:00; Stop 12/31/16 at 20:59 Magnesium Hydroxide (Milk Of Magnesia) 30 ml DAILYPRN PRN PO CONSTIPATION; Start 12/01/16 at 14:30; Stop 12/31/16 at 14:29 Miscellaneous (Unresolved Clarification Entry) SEE LABEL COMMENTS UNRESOLVED XX ; Start 12/01/16 at 00:01; Stop 12/01/16 at 17:54; Status DC Pantoprazole Sodium (Protonix) 40 mg DAILY PO Last administered on 12/05/16 09 :08; Start 12/01/16 at 09:00; Stop 12/31/16 at 08:59 Polyethylene Glycol (Miralax) 1 pkt DAILYPRN PRN PO CONSTIPATION; Start at 14:30; Stop 12/31/16 at 14:29 Potassium Chloride (Micro-K Extencaps) 10 meq DAILY PO Last administered on 09:22; Start 12/02/16 at 09:00; Stop 12/03/16 at 12:00; Status DC Potassium Citrate (Urocit-K) 1,080 mg DAILY@08 PO Last administered on 09:07; Start 12/02/16 at 08:00; Stop 01/01/17 at 07:59 Senna (Senokot) 1 tab QHS PO Last administered on 12/04/16 21:38; Start at 21:00; Stop 12/31/16 at 20:59 Sodium Chloride (Nacl 0.9%) 1,000 ml @ 50 mls/hr Q20H IV Last administered on 12/05/16 06:02; Start 12/04/16 at 09:15; Stop 01/03/17 at 09:14 Timolol Maleate (Timoptic 0.5% Ophth Janine) 1 drop DAILY OU Last administered on 12/05/16 09:10; Start 12/02/16 at 09:00; Stop 01/01/17 at 08:59 LROE GAINES MD Dec 05, 2016 09:35
[2016-12-05 14:00] VITALS: BP 170/70
[2016-12-05] MEDS: LATANOPROST 0.005% OPHTH SOLN 2.5 ML OU SCH (21:57)
[2016-12-05] MEDS: ATORVASTATIN 20 MG TAB PO SCH (21:57)
[2016-12-05] MEDS: SENNA 8.6 MG TAB (SENOKOT) PO SCH (21:58)
[2016-12-05] MEDS: LABETALOL 100 MG TAB PO SCH (21:58)
[2016-12-06] MEDS: NS 1,000 ML IV SCH (00:20)
[2016-12-06] MEDS: LEVOTHYROXINE 0.05 MG TAB (50 MCG) PO SCH (05:41)
[2016-12-06] MEDS: cloNIDine 0.2 MG TAB PO SCH ×3 (05:41→17:22)
[2016-12-06 06:00] VITALS: BP 168/72
[2016-12-06 06:56] LABS: MEAN CORPUSCULAR HEMOGLOBIN 28.6 pg (27.0-33.0); MEAN CORPUSCULAR HGB CONC 33.1 g/dl (32.0-36.5); MEAN CORPUSCULAR VOLUME 86.4 fl (80.0-96.0); RED CELL DISTRIBUTION WIDTH 14.1 % (11.5-14.5); WHITE BLOOD COUNT 8.4 K/mm3 (4.0-10.0)
[2016-12-06 07:19] LABS: CALCIUM LEVEL 8.5 MG/DL (8.8-10.2); CREATININE FOR GFR 1.03 MG/DL (0.55-1.02); GLOMERULAR FILTRATION RATE 55.6 (>39); POTASSIUM SERUM 3.9 MEQ/L (3.5-5.1)
[2016-12-06] MEDS: APIXABAN 5 MG TAB (ELIQUIS) PO SCH ×2 (07:35→20:34)
[2016-12-06] MEDS: BRINZOLAMIDE 1 % OPHTH SUSP (AZOPT) 10ML OD SCH ×3 (07:36→20:35)
[2016-12-06] MEDS: DOCUSATE SODIUM 100 MG CAP PO SCH ×2 (07:36→20:34)
[2016-12-06] MEDS: amLODIPine 10 MG TAB PO SCH (07:36)
[2016-12-06] MEDS: TIMOLOL MALEATE 0.5% OPHTH SOLN 5 ML OU SCH (07:36)
[2016-12-06] MEDS: LOSARTAN 50 MG TAB PO SCH (07:36)
[2016-12-06] MEDS: PANTOPRAZOLE 40MG TAB (PROTONIX) PO SCH (07:36)
[2016-12-06] MEDS: POTASSIUM CITRATE 1080 MG (10MEQ) TAB PO SCH (07:38)
[2016-12-06 11:02] VITALS: BP 160/72
[2016-12-06] MEDS: LABETALOL 100 MG TAB PO SCH ×2 (11:31→20:35)
[2016-12-06 14:00] VITALS: BP 158/70
[2016-12-06 17:19] VITALS: BP 168/62
[2016-12-06 20:00] VITALS: BP 156/68
[2016-12-06] MEDS: ATORVASTATIN 20 MG TAB PO SCH (20:34)
[2016-12-06] MEDS: SENNA 8.6 MG TAB (SENOKOT) PO SCH (20:34)
[2016-12-06] MEDS: LATANOPROST 0.005% OPHTH SOLN 2.5 ML OU SCH (20:35)
[2016-12-07] MEDS: cloNIDine 0.2 MG TAB PO SCH ×4 (00:09→17:18)
[2016-12-07] MEDS: LEVOTHYROXINE 0.05 MG TAB (50 MCG) PO SCH (05:31)
[2016-12-07 05:32] VITALS: BP 158/70
[2016-12-07 07:16] LABS: MEAN CORPUSCULAR HEMOGLOBIN 29.8 pg (27.0-33.0); MEAN CORPUSCULAR HGB CONC 33.7 g/dl (32.0-36.5); MEAN CORPUSCULAR VOLUME 88.5 fl (80.0-96.0); RED CELL DISTRIBUTION WIDTH 14.3 % (11.5-14.5); WHITE BLOOD COUNT 6.3 K/mm3 (4.0-10.0)
[2016-12-07 07:36] LABS: ANION GAP 7 MEQ/L (8-16); BLOOD UREA NITROGEN 25 MG/DL (7-18); CALCIUM LEVEL 8.7 MG/DL (8.8-10.2); CARBON DIOXIDE LEVEL 26 MEQ/L (21-32); CHLORIDE LEVEL 109 MEQ/L (98-107); CREATININE FOR GFR 0.92 MG/DL (0.55-1.02); GLOMERULAR FILTRATION RATE > 60.0 (>39); GLUCOSE, FASTING 118 MG/DL (83-110); MAGNESIUM LEVEL 1.7 MG/DL (1.8-2.4); POTASSIUM SERUM 4.3 MEQ/L (3.5-5.1); SODIUM LEVEL 142 MEQ/L (136-145)
[2016-12-07] MEDS: MOM 30ML SUSPENSION UDC PO PRN (08:09)
[2016-12-07] MEDS: APIXABAN 5 MG TAB (ELIQUIS) PO SCH ×2 (08:09→21:03)
[2016-12-07] MEDS: POTASSIUM CITRATE 1080 MG (10MEQ) TAB PO SCH (08:09)
[2016-12-07] MEDS: PANTOPRAZOLE 40MG TAB (PROTONIX) PO SCH (08:09)
[2016-12-07] MEDS: DOCUSATE SODIUM 100 MG CAP PO SCH ×2 (08:09→21:02)
[2016-12-07] MEDS: LOSARTAN 50 MG TAB PO SCH (08:10)
[2016-12-07] MEDS: LABETALOL 100 MG TAB PO SCH ×2 (08:10→21:05)
[2016-12-07] MEDS: TIMOLOL MALEATE 0.5% OPHTH SOLN 5 ML OU SCH (08:11)
[2016-12-07] MEDS: BRINZOLAMIDE 1 % OPHTH SUSP (AZOPT) 10ML OD SCH ×3 (08:11→21:06)
[2016-12-07] MEDS: amLODIPine 10 MG TAB PO SCH (08:11)
[2016-12-07 11:28] VITALS: BP 149/66
[2016-12-07 14:00] VITALS: BP 157/70
[2016-12-07 17:15] VITALS: BP 149/64
[2016-12-07 20:00] VITALS: BP 186/74
[2016-12-07] MEDS: SENNA 8.6 MG TAB (SENOKOT) PO SCH (21:00)
[2016-12-07] MEDS: ATORVASTATIN 20 MG TAB PO SCH (21:03)
[2016-12-07] MEDS: LATANOPROST 0.005% OPHTH SOLN 2.5 ML OU SCH (21:06)
[2016-12-07 22:00] VITALS: BP 160/72
[2016-12-08] MEDS: cloNIDine 0.2 MG TAB PO SCH ×5 (00:56→23:02)
[2016-12-08 00:57] VITALS: BP 150/62
[2016-12-08] MEDS: LEVOTHYROXINE 0.05 MG TAB (50 MCG) PO SCH (05:51)
[2016-12-08 05:53] VITALS: BP 142/62
[2016-12-08 06:00] VITALS: BP 142/62
[2016-12-08 06:56] LABS: MEAN CORPUSCULAR HEMOGLOBIN 29.4 pg (27.0-33.0); MEAN CORPUSCULAR HGB CONC 33.9 g/dl (32.0-36.5); MEAN CORPUSCULAR VOLUME 86.7 fl (80.0-96.0); RED CELL DISTRIBUTION WIDTH 14.2 % (11.5-14.5); WHITE BLOOD COUNT 6.1 K/mm3 (4.0-10.0)
[2016-12-08 07:13] LABS: CALCIUM LEVEL 8.7 MG/DL (8.8-10.2); CREATININE FOR GFR 1.04 MG/DL (0.55-1.02); POTASSIUM SERUM 4.3 MEQ/L (3.5-5.1)
[2016-12-08] MEDS: POTASSIUM CITRATE 1080 MG (10MEQ) TAB PO SCH (09:35)
[2016-12-08] MEDS: LOSARTAN 50 MG TAB PO SCH (09:35)
[2016-12-08] MEDS: LABETALOL 100 MG TAB PO SCH ×2 (09:35→22:53)
[2016-12-08] MEDS: PANTOPRAZOLE 40MG TAB (PROTONIX) PO SCH (09:35)
[2016-12-08] MEDS: TIMOLOL MALEATE 0.5% OPHTH SOLN 5 ML OU SCH (09:36)
[2016-12-08] MEDS: amLODIPine 10 MG TAB PO SCH (09:36)
[2016-12-08] MEDS: BRINZOLAMIDE 1 % OPHTH SUSP (AZOPT) 10ML OD SCH ×3 (09:36→22:54)
[2016-12-08] MEDS: DOCUSATE SODIUM 100 MG CAP PO SCH ×2 (09:36→22:52)
[2016-12-08] MEDS: APIXABAN 5 MG TAB (ELIQUIS) PO SCH ×2 (09:36→22:53)
--- NOTE | 2016-12-08 11:54 | IPNPDOC ---
Reel Blade Bender Furnace Tender Progress Note PROGRESS NOTE DATE OF SERVICE: 12/08/16 IDENTIFICATION STATEMENT: Patient is a 76-year-old right hand dominant woman with left MCA infarct admitted for comprehensive integrated inpatient rehabilitation. PAST MEDICAL HISTORY: Hypertension Hypothyroidism Paroxysmal atrial fibrillation s/p cardioversion PAST SURGICAL HISTORY: Tonsillectomy many years ago Cardioversion many years ago. ALLERGIES: Contrast, shellfish, iodine MEDICATIONS: Hydrochlorothiazide 25 mg daily-on hold Norvasc 10 mg daily Catapres 0.2 mg qid Labetalol 400 mg every 12 hours Cozaar 100 mg daily Eliquis 5 mg twice a day Lipitor 80 mg every evening Magnesium gluconate 500 mg twice a day Synthroid 15 g daily Potassium chloride 10 mEq daily- on hold Potassium citrate 10 mEq daily Azopt 1% 1 drop right eye tid Timolol 0.5% 1 drop both eyes qam Xalatan 0.005% 1 drop both eyes qpm SUBJECTIVE: Patient stated good morning. Indicates that she feels good. Denies any CP, SOB, N/V, abdominal pain, HUTTON. VITAL SIGNS: Temperature 98.8F, pulse 66 respiratory rate of 18, blood pressure 142/62, 96% saturation on room air. Wt 70.7kg PHYSICAL EXAMINATION: GENERAL: Well nourished, well developed, sitting up in recliner, no acute distress. HEENT: Normocephalic, atraumatic. +right facial droop (unchanged). PERRL, EOMI CARDIOVASCULAR: S1, S2, regular rate. No significant bilateral lower limb edema or calf tenderness. LUNGS: Decreased breath sounds throughout (probably related to poor effort 2nd to comprehension deficits), no wheezing or rhonchi appreciated. ABDOMEN: Soft, nontender, nondistended. Normoactive bowel sounds throughout. NEUROLOGICAL: Alert and oriented to person and being in hospital. Able to answer yes or no, answers continue to be inconsistent. As above, verbalized good & morning, +Dysarthria (about same). MMT: 5/5 left upper and lower limbs in all major muscle groups, 0/5 right upper and lower limb in all major muscle groups. SKIN: Lg bruise left medial arm (prior PICC site), decreased. LABORATORY DATA: 12/08/16: reviewed, see below. UCx: no growth 11/21/2016: WBC count 8.1, hemoglobin 12.7, hematocrit 36.6 LDL 181 IMAGING: MRA of the brain: Patent major arteries of the brain. No hemodynamically significant stenosis identified. There is no aneurysm or AV malformation or significant size dural fistula seen. No sinus thrombus seen. MRI of the brain: Left middle cerebral artery territory acute/subacute infarct. Left frontal lobe convexal subarachnoid nor hemorrhage. CT of the head: Expected evolution of known left MCA acute infarct without evidence of hemorrhagic transformation. No evidence of new territorial infarct. No significant interval change in the left frontal subarachnoid hemorrhage. CT perfusion: Perfusion deficit defect in the left temporoparietal lobe corresponding to the known acute infarct. No salvageable significant size penumbra seen. Focal narrowing in the middle left M1 segment. Posterior left vertebral artery appears occluded. Calcification is present in the carotid arteries and vertebral arteries associated with a focal narrowing in the In her segments of the internal carotid arteries especially on the right side where stenosis could easily be up to 50% severity. Chest x-ray: Persistent consolidation in the right infra inhaler area. Persistent consolidation in the left lower lobe. A small layering effusion is suspected. No definite definite evidence of edema. EKG: Sinus rhythm with sinus arrhythmia, left axis deviation, left bundle branch block, 77 beats per minute SERENA: There is no LA appendage thrombus. No patent foramen ovale. No aortic stenosis or regurgitation. Renal ultrasound: No hydronephrosis bilaterally. There is a 1.7 cm simple appearing cyst in the lower lobe of the left kidney. Doppler: Resistive indices in the right kidney are elevated with parvus tardua wave form. The right renal artery is only visualized at the hilum with velocities within normal limits. Flow is not optimally visualized or evaluated on the current study. ASSESSMENT AND PLAN: 1. Left MCA stroke, left frontal subarachnoid hemorrhage with resultant global aphasia, dysphagia, dysarthria, dense right hemiparesis, decreased mobility and dysfunctional ADLs: Maintain systolic blood pressure less than 140. Maintain eliquis. Continue daily therapies. Rehabilitation nursing for bladder, bowel, medication management. 2. ALEKSANDER: UCx neg. No retention. Improved s/p IVF. Continue to hold HCTZ. Continue daily weights to monitor fluid balance. Continue Cozaar for now. Continue catapres current dose. S/p Barium swallow 12/04/16 and cleared for thin liquids. 3. Urinary retention: Discontinued Victor catheter on day of admission and BS w/ o significant retention. 4. Hypertension: As above, goal is for systolic blood pressure less than 140. Improved s/p increase catapres. Continue Norvasc and losartan current doses. Continue holding HCTZ 2nd for now. Decreased labetolol to 300mg bid on . Further adjustments as needed. 5. Electrolytes: Patient was on potassium, now d/cd 2nd d/c ing HCTZ. Mag level wnl, d/cd magnesium supplementation for now. 6. Bowel: Continue scheduled Colace and senna with milk of magnesia and MiraLAX on an as-needed basis. 7. Left lower limb DVT: Continued eliquis twice a day 8. Paroxysmal atrial fibrillation: Currently regular and rate controlled. Continue beta aj. Continue eliquis. 9. Diet/nutrition: Prealbumin wnl. Upgraded to [facility] soft, thin liquids 12/04/16. low-fat low-cholesterol. / Vital Signs Vital Sign - Last 24 Hours 12/07/16 12/07/16 12/07/16 12/07/16 14:00 17:15 17:18 20:00 Temp 97.5 98.7 Pulse 65 66 72 Resp 18 20 B/P 157/70 149/64 149/64 186/74 Pulse Ox 93 96 O2 Delivery Room Air Room Air 12/07/16 12/07/16 12/07/16 12/08/16 21:00 21:05 22:00 00:56 Pulse 80 B/P 186/74 160/72 150/62 O2 Delivery Room Air 12/08/16 12/08/16 12/08/16 12/08/16 00:57 05:51 05:53 06:00 Temp 98.8 98.8 Pulse 66 66 Resp 18 18 B/P 150/62 142/62 142/62 142/62 Pulse Ox 96 96 O2 Delivery Room Air Room Air 12/08/16 12/08/16 08:00 09:35 Pulse 66 B/P 142/62 O2 Delivery Room Air Laboratory Data CBC/BMP Laboratory Tests 12/08/16 06:25 Calcium Level 8.7 L, Red Blood Count 3.56 L, Mean Corpuscular Volume 86.7, Mean Corpuscular Hemoglobin 29.4, Mean Corpuscular Hemoglobin Concent 33.9, Red Cell Distribution Width 14.2 Labs 24H Laboratory Tests 2 12/08/16 06:25: Anion Gap 8, Blood Urea Nitrogen 28H, Creatinine 1.04H, Sodium Level 142, Potassium Level 4.3, Chloride Level 108H, Carbon Dioxide Level 26, Calcium Level 8.7L, Glomerular Filtration Rate 55.0 Microbiology Microbiology 12/01/16 Urine Culture - Final, Complete Allergies Allergies: Coded Allergies: Iodine (Verified Allergy, Unknown, 12/01/16) Salicylates (Verified Allergy, Unknown, 12/01/16) Shellfish Allergy (Verified Allergy, Unknown, 12/01/16) Current Medications Current Medications Current Medications Acetaminophen (Tylenol Tab) 650 mg Q4HP PRN PO MILD PAIN (PS 1-4); Start at 14:30; Stop 12/31/16 at 14:29 Amlodipine Besylate (Norvasc) 10 mg DAILY PO Last administered on 12/08/16 09: 36; Start 12/02/16 at 09:00; Stop 01/01/17 at 08:59 Apixaban (Eliquis) 5 mg BID PO Last administered on 12/08/16 09:36; Start at 21:00; Stop 12/15/16 at 20:59 Atorvastatin Calcium (Lipitor) 80 mg QHS PO Last administered on 12/07/16 21: 03; Start 12/01/16 at 21:00; Stop 12/31/16 at 20:59 Brinzolamide (Azopt) 1 drop TID OD Last administered on 12/08/16 09:36; Start 12/01/16 at 16:00; Stop 12/31/16 at 15:59 Clonidine HCl (Catapres) 0.2 mg TID PO Last administered on 12/02/16 08:51; Start 12/01/16 at 16:00; Stop 12/02/16 at 09:31; Status DC Clonidine HCl 0.2 mg 0.2 mg Q6H PO Last administered on 12/08/16 05:51; Start 12/02/16 at 12:00; Stop 01/01/17 at 11:59 Docusate Sodium (Colace) 100 mg BID PO Last administered on 12/08/16 09:36; Start 12/01/16 at 21:00; Stop 12/31/16 at 20:59 Home Med (Med Rec Complete!) ASDIRECTED XX ; Start 12/01/16 at 18:00; Stop at 18:00; Status DC Hydrochlorothiazide (Hydrodiuril) 25 mg DAILY PO Last administered on 09:24; Start 12/02/16 at 09:00; Stop 12/03/16 at 11:46; Status DC Labetalol HCl (Normodyne, Trandate) 300 mg BID PO Last administered on 09:35; Start 12/05/16 at 21:00; Stop 01/04/17 at 20:59 Labetalol HCl (Normodyne, Trandate) 400 mg BID PO Last administered on 21:38; Start 12/01/16 at 21:00; Stop 12/05/16 at 09:28; Status DC Latanoprost (Xalatan 0.005% Op Soln) 1 drop QHS OU Last administered on 21:06; Start 12/01/16 at 21:00; Stop 12/31/16 at 20:59 Levothyroxine Sodium (Synthroid) 0.05 mg DAILY@06 PO Last administered on 05:51; Start 12/02/16 at 06:00; Stop 01/01/17 at 05:59 Losartan Potassium (Cozaar) 100 mg DAILY PO Last administered on 12/08/16 09: 35; Start 12/02/16 at 09:00; Stop 01/01/17 at 08:59 Magnesium Gluconate (Magnesium Gluconate) 500 mg BID PO Last administered on 09:09; Start 12/01/16 at 21:00; Stop 12/05/16 at 09:36; Status DC Magnesium Hydroxide (Milk Of Magnesia) 30 ml DAILYPRN PRN PO CONSTIPATION Last administered on 12/07/16 08:09; Start 12/01/16 at 14:30; Stop 12/31/16 at 14:29 Miscellaneous (Unresolved Clarification Entry) SEE LABEL COMMENTS UNRESOLVED XX ; Start 12/01/16 at 00:01; Stop 12/01/16 at 17:54; Status DC Pantoprazole Sodium (Protonix) 40 mg DAILY PO Last administered on 12/08/16 09 :35; Start 12/01/16 at 09:00; Stop 12/31/16 at 08:59 Polyethylene Glycol (Miralax) 1 pkt DAILYPRN PRN PO CONSTIPATION; Start at 14:30; Stop 12/31/16 at 14:29 Potassium Chloride (Micro-K Extencaps) 10 meq DAILY PO Last administered on 09:22; Start 12/02/16 at 09:00; Stop 12/03/16 at 12:00; Status DC Potassium Citrate (Urocit-K) 1,080 mg DAILY@08 PO Last administered on 09:35; Start 12/02/16 at 08:00; Stop 01/01/17 at 07:59 Senna (Senokot) 1 tab QHS PO Last administered on 12/06/16 20:34; Start at 21:00; Stop 12/31/16 at 20:59 Sodium Chloride (Nacl 0.9%) 1,000 ml @ 50 mls/hr Q20H IV Last administered on 12/06/16 00:20; Start 12/04/16 at 09:15; Stop 12/06/16 at 10:45; Status DC Timolol Maleate (Timoptic 0.5% Ophth Janine) 1 drop DAILY OU Last administered on 12/08/16 09:36; Start 12/02/16 at 09:00; Stop 01/01/17 at 08:59 LORE GAINES MD Dec 08, 2016 11:54
[2016-12-08 14:00] VITALS: BP 157/68
[2016-12-08 20:00] VITALS: BP 162/70
[2016-12-08] MEDS: ATORVASTATIN 20 MG TAB PO SCH (22:54)
[2016-12-08] MEDS: LATANOPROST 0.005% OPHTH SOLN 2.5 ML OU SCH (22:54)
[2016-12-08] MEDS: SENNA 8.6 MG TAB (SENOKOT) PO SCH (22:54)
[2016-12-09] MEDS: LEVOTHYROXINE 0.05 MG TAB (50 MCG) PO SCH (05:43)
[2016-12-09] MEDS: cloNIDine 0.2 MG TAB PO SCH ×4 (05:43→23:28)
[2016-12-09 06:00] VITALS: BP 157/72
[2016-12-09] MEDS: LOSARTAN 50 MG TAB PO SCH (09:15)
[2016-12-09] MEDS: amLODIPine 10 MG TAB PO SCH (09:16)
[2016-12-09] MEDS: LABETALOL 100 MG TAB PO SCH ×2 (09:16→20:54)
[2016-12-09] MEDS: APIXABAN 5 MG TAB (ELIQUIS) PO SCH ×2 (09:17→20:54)
[2016-12-09] MEDS: PANTOPRAZOLE 40MG TAB (PROTONIX) PO SCH (09:17)
[2016-12-09] MEDS: DOCUSATE SODIUM 100 MG CAP PO SCH ×2 (09:17→20:53)
[2016-12-09] MEDS: TIMOLOL MALEATE 0.5% OPHTH SOLN 5 ML OU SCH (09:18)
[2016-12-09] MEDS: BRINZOLAMIDE 1 % OPHTH SUSP (AZOPT) 10ML OD SCH ×3 (09:18→20:54)
[2016-12-09] MEDS: POTASSIUM CITRATE 1080 MG (10MEQ) TAB PO SCH (09:18)
--- NOTE | 2016-12-09 13:02 | IPNPDOC ---
Chef'S Assistant Progress Note PROGRESS NOTE DATE OF SERVICE: 12/09/16 IDENTIFICATION STATEMENT: Patient is a 76-year-old right hand dominant woman with left MCA infarct admitted for comprehensive integrated inpatient rehabilitation. PAST MEDICAL HISTORY: Hypertension Hypothyroidism Paroxysmal atrial fibrillation s/p cardioversion PAST SURGICAL HISTORY: Tonsillectomy many years ago Cardioversion many years ago. ALLERGIES: Contrast, shellfish, iodine MEDICATIONS: Hydrochlorothiazide 25 mg daily-on hold Norvasc 10 mg daily Catapres 0.2 mg qid Labetalol 400 mg every 12 hours Cozaar 100 mg daily Eliquis 5 mg twice a day Lipitor 80 mg every evening Magnesium gluconate 500 mg twice a day Synthroid 15 g daily Potassium chloride 10 mEq daily- on hold Potassium citrate 10 mEq daily Azopt 1% 1 drop right eye tid Timolol 0.5% 1 drop both eyes qam Xalatan 0.005% 1 drop both eyes qpm SUBJECTIVE: Patient does no verbalize any complaints. Denies any CP, SOB, N/V, abdominal pain, HUTTON. VITAL SIGNS: Temperature 97.1F, pulse 64 respiratory rate of 18, blood pressure 120/52, 95% saturation on room air. Wt 71.4kg PHYSICAL EXAMINATION: GENERAL: Well nourished, well developed, sitting up in recliner, no acute distress. HEENT: Normocephalic, atraumatic. +right facial droop (unchanged). PERRL, EOMI CARDIOVASCULAR: S1, S2, regular rate. No significant bilateral lower limb edema or calf tenderness. LUNGS: Decreased breath sounds throughout (probably related to poor effort 2nd to comprehension deficits), no wheezing or rhonchi appreciated. ABDOMEN: Soft, nontender, nondistended. Normoactive bowel sounds throughout. NEUROLOGICAL: Alert and oriented to person and being in hospital. Able to answer yes or no, answers inconsistent. Said perfect today, +Dysarthria ( about same). MMT: 5/5 left upper and lower limbs in all major muscle groups, 0/ 5 right upper and lower limb in all major muscle groups. SKIN: Bruise left medial arm (prior PICC site), decreased. LABORATORY DATA: 12/08/16: reviewed, see below. UCx: no growth 11/21/2016: WBC count 8.1, hemoglobin 12.7, hematocrit 36.6 LDL 181 IMAGING: MRA of the brain: Patent major arteries of the brain. No hemodynamically significant stenosis identified. There is no aneurysm or AV malformation or significant size dural fistula seen. No sinus thrombus seen. MRI of the brain: Left middle cerebral artery territory acute/subacute infarct. Left frontal lobe convexal subarachnoid nor hemorrhage. CT of the head: Expected evolution of known left MCA acute infarct without evidence of hemorrhagic transformation. No evidence of new territorial infarct. No significant interval change in the left frontal subarachnoid hemorrhage. CT perfusion: Perfusion deficit defect in the left temporoparietal lobe corresponding to the known acute infarct. No salvageable significant size penumbra seen. Focal narrowing in the middle left M1 segment. Posterior left vertebral artery appears occluded. Calcification is present in the carotid arteries and vertebral arteries associated with a focal narrowing in the In her segments of the internal carotid arteries especially on the right side where stenosis could easily be up to 50% severity. Chest x-ray: Persistent consolidation in the right infra inhaler area. Persistent consolidation in the left lower lobe. A small layering effusion is suspected. No definite definite evidence of edema. EKG: Sinus rhythm with sinus arrhythmia, left axis deviation, left bundle branch block, 77 beats per minute SERENA: There is no LA appendage thrombus. No patent foramen ovale. No aortic stenosis or regurgitation. Renal ultrasound: No hydronephrosis bilaterally. There is a 1.7 cm simple appearing cyst in the lower lobe of the left kidney. Doppler: Resistive indices in the right kidney are elevated with parvus tardua wave form. The right renal artery is only visualized at the hilum with velocities within normal limits. Flow is not optimally visualized or evaluated on the current study. ASSESSMENT AND PLAN: 1. Left MCA stroke, left frontal subarachnoid hemorrhage with resultant global aphasia, dysphagia, dysarthria, dense right hemiparesis, decreased mobility and dysfunctional ADLs: Maintain systolic blood pressure less than 140. Maintain eliquis. Continue daily therapies. Rehabilitation nursing for bladder, bowel, medication management. 2. ALEKSANDER: UCx neg. No retention. Improved s/p IVF. Continue to hold HCTZ-pending tomorrows labs may restart in am. Continue daily weights to monitor fluid balance. Continue Cozaar for now. Continue catapres current dose. S/p Barium swallow 12/04/16 and cleared for thin liquids.[Note: spoke with daughter yesterday, she stated her mother had some intermittent mild renal insufficiency prior to her stroke] 3. Urinary retention: Discontinued Victor catheter on day of admission and BS w/ o significant retention. 4. Hypertension: As above, goal is for systolic blood pressure less than 140. Improved s/p increase catapres. Continue Norvasc, labetolol and losartan current doses. Continue holding HCTZ 2nd for now-may restart in am. [Hx: Given HR and BP, decreased labetolol to 300mg bid 12/05/16]. Further adjustments as needed. 5. Electrolytes: Patient was on potassium, now d/cd 2nd d/c ing HCTZ. Mag level wnl, d/cd magnesium supplementation for now. AM labs. 6. Bowel: Continue scheduled Colace and senna with milk of magnesia and MiraLAX on an as-needed basis. 7. Left lower limb DVT: Continued eliquis twice a day 8. Paroxysmal atrial fibrillation: Currently regular and rate controlled. Continue beta aj. Continue eliquis. 9. Diet/nutrition: Prealbumin wnl. Upgraded to [facility] soft, thin liquids 12/04/16. low-fat low-cholesterol. / Vital Signs Vital Sign - Last 24 Hours 12/08/16 12/08/16 12/08/16 12/08/16 14:00 17:10 20:00 21:00 Temp 97.6 97.5 Pulse 58 62 Resp 20 18 B/P 157/68 148/60 162/70 Pulse Ox 97 93 O2 Delivery Room Air Room Air 12/08/16 12/08/16 12/09/16 12/09/16 22:53 23:02 05:43 06:00 Temp 97.1 Pulse 62 64 Resp 18 B/P 162/70 168/60 152/72 157/72 Pulse Ox 95 O2 Delivery Room Air 12/09/16 12/09/16 12/09/16 12/09/16 09:00 09:15 09:16 12:45 Pulse 64 B/P 160/64 160/64 120/52 O2 Delivery Room Air Microbiology Microbiology 12/01/16 Urine Culture - Final, Complete Allergies Allergies: Coded Allergies: Iodine (Verified Allergy, Unknown, 12/01/16) Salicylates (Verified Allergy, Unknown, 12/01/16) Shellfish Allergy (Verified Allergy, Unknown, 12/01/16) Current Medications Current Medications Current Medications Acetaminophen (Tylenol Tab) 650 mg Q4HP PRN PO MILD PAIN (PS 1-4); Start at 14:30; Stop 12/31/16 at 14:29 Amlodipine Besylate (Norvasc) 10 mg DAILY PO Last administered on 12/09/16 09: 16; Start 12/02/16 at 09:00; Stop 01/01/17 at 08:59 Apixaban (Eliquis) 5 mg BID PO Last administered on 12/09/16 09:17; Start at 21:00; Stop 12/15/16 at 20:59 Atorvastatin Calcium (Lipitor) 80 mg QHS PO Last administered on 12/08/16 22: 54; Start 12/01/16 at 21:00; Stop 12/31/16 at 20:59 Brinzolamide (Azopt) 1 drop TID OD Last administered on 12/09/16 09:18; Start 12/01/16 at 16:00; Stop 12/31/16 at 15:59 Clonidine HCl (Catapres) 0.2 mg TID PO Last administered on 12/02/16 08:51; Start 12/01/16 at 16:00; Stop 12/02/16 at 09:31; Status DC Clonidine HCl 0.2 mg 0.2 mg Q6H PO Last administered on 12/09/16 12:45; Start 12/02/16 at 12:00; Stop 01/01/17 at 11:59 Docusate Sodium (Colace) 100 mg BID PO Last administered on 12/09/16 09:17; Start 12/01/16 at 21:00; Stop 12/31/16 at 20:59 Home Med (Med Rec Complete!) ASDIRECTED XX ; Start 12/01/16 at 18:00; Stop at 18:00; Status DC Hydrochlorothiazide (Hydrodiuril) 25 mg DAILY PO Last administered on 09:24; Start 12/02/16 at 09:00; Stop 12/03/16 at 11:46; Status DC Labetalol HCl (Normodyne, Trandate) 300 mg BID PO Last administered on 09:16; Start 12/05/16 at 21:00; Stop 01/04/17 at 20:59 Labetalol HCl (Normodyne, Trandate) 400 mg BID PO Last administered on 21:38; Start 12/01/16 at 21:00; Stop 12/05/16 at 09:28; Status DC Latanoprost (Xalatan 0.005% Op Soln) 1 drop QHS OU Last administered on 22:54; Start 12/01/16 at 21:00; Stop 12/31/16 at 20:59 Levothyroxine Sodium (Synthroid) 0.05 mg DAILY@06 PO Last administered on 05:43; Start 12/02/16 at 06:00; Stop 01/01/17 at 05:59 Losartan Potassium (Cozaar) 100 mg DAILY PO Last administered on 12/09/16 09: 15; Start 12/02/16 at 09:00; Stop 01/01/17 at 08:59 Magnesium Gluconate (Magnesium Gluconate) 500 mg BID PO Last administered on 09:09; Start 12/01/16 at 21:00; Stop 12/05/16 at 09:36; Status DC Magnesium Hydroxide (Milk Of Magnesia) 30 ml DAILYPRN PRN PO CONSTIPATION Last administered on 12/07/16 08:09; Start 12/01/16 at 14:30; Stop 12/31/16 at 14:29 Miscellaneous (Unresolved Clarification Entry) SEE LABEL COMMENTS UNRESOLVED XX ; Start 12/01/16 at 00:01; Stop 12/01/16 at 17:54; Status DC Pantoprazole Sodium (Protonix) 40 mg DAILY PO Last administered on 12/09/16 09 :17; Start 12/01/16 at 09:00; Stop 12/31/16 at 08:59 Polyethylene Glycol (Miralax) 1 pkt DAILYPRN PRN PO CONSTIPATION; Start at 14:30; Stop 12/31/16 at 14:29 Potassium Chloride (Micro-K Extencaps) 10 meq DAILY PO Last administered on 09:22; Start 12/02/16 at 09:00; Stop 12/03/16 at 12:00; Status DC Potassium Citrate (Urocit-K) 1,080 mg DAILY@08 PO Last administered on 09:18; Start 12/02/16 at 08:00; Stop 01/01/17 at 07:59 Senna (Senokot) 1 tab QHS PO Last administered on 12/06/16 20:34; Start at 21:00; Stop 12/31/16 at 20:59 Sodium Chloride (Nacl 0.9%) 1,000 ml @ 50 mls/hr Q20H IV Last administered on 12/06/16 00:20; Start 12/04/16 at 09:15; Stop 12/06/16 at 10:45; Status DC Timolol Maleate (Timoptic 0.5% Oph Janine) 1 drop DAILY OU Last administered on 12/09/16 09:18; Start 12/02/16 at 09:00; Stop 01/01/17 at 08:59 LORE GAINES MD Dec 09, 2016 13:02
[2016-12-09 14:00] VITALS: BP 140/60
[2016-12-09 20:00] VITALS: BP 177/70
[2016-12-09] MEDS: LATANOPROST 0.005% OPHTH SOLN 2.5 ML OU SCH (20:54)
[2016-12-09] MEDS: ATORVASTATIN 20 MG TAB PO SCH (20:54)
[2016-12-09] MEDS: SENNA 8.6 MG TAB (SENOKOT) PO SCH (20:54)
[2016-12-10 06:00] VITALS: BP 157/80
[2016-12-10] MEDS: LEVOTHYROXINE 0.05 MG TAB (50 MCG) PO SCH (06:06)
[2016-12-10] MEDS: cloNIDine 0.2 MG TAB PO SCH ×2 (06:06→12:21)
[2016-12-10] MEDS: POTASSIUM CITRATE 1080 MG (10MEQ) TAB PO SCH (08:31)
[2016-12-10] MEDS: PANTOPRAZOLE 40MG TAB (PROTONIX) PO SCH (08:32)
[2016-12-10] MEDS: LABETALOL 100 MG TAB PO SCH ×2 (08:33→21:40)
[2016-12-10] MEDS: LOSARTAN 50 MG TAB PO SCH (08:33)
[2016-12-10] MEDS: APIXABAN 5 MG TAB (ELIQUIS) PO SCH ×2 (08:34→21:40)
[2016-12-10] MEDS: amLODIPine 10 MG TAB PO SCH (08:34)
[2016-12-10] MEDS: DOCUSATE SODIUM 100 MG CAP PO SCH ×2 (08:34→21:40)
[2016-12-10 08:35] LABS: MEAN CORPUSCULAR HEMOGLOBIN 28.9 pg (27.0-33.0); MEAN CORPUSCULAR HGB CONC 32.3 g/dl (32.0-36.5); MEAN CORPUSCULAR VOLUME 89.5 fl (80.0-96.0); RED CELL DISTRIBUTION WIDTH 14.4 % (11.5-14.5); WHITE BLOOD COUNT 7.1 K/mm3 (4.0-10.0)
[2016-12-10] MEDS: TIMOLOL MALEATE 0.5% OPHTH SOLN 5 ML OU SCH (08:35)
[2016-12-10] MEDS: BRINZOLAMIDE 1 % OPHTH SUSP (AZOPT) 10ML OD SCH ×3 (08:35→21:43)
[2016-12-10 08:53] LABS: CALCIUM LEVEL 8.6 MG/DL (8.8-10.2); CREATININE FOR GFR 1.08 MG/DL (0.55-1.02); GLOMERULAR FILTRATION RATE 52.7 (>39); MAGNESIUM LEVEL 1.8 MG/DL (1.8-2.4); POTASSIUM SERUM 4.1 MEQ/L (3.5-5.1)
[2016-12-10 14:00] VITALS: BP 149/68
[2016-12-10] MEDS ORDERED: cloNIDine 0.1 MG TAB PO ONE (14:45)
--- NOTE | 2016-12-10 14:45 | IPNPDOC ---
Community Development Aide Progress Note PROGRESS NOTE DATE OF SERVICE: 12/10/16 IDENTIFICATION STATEMENT: Patient is a 76-year-old right hand dominant woman with left MCA infarct admitted for comprehensive integrated inpatient rehabilitation. PAST MEDICAL HISTORY: Hypertension Hypothyroidism Paroxysmal atrial fibrillation s/p cardioversion PAST SURGICAL HISTORY: Tonsillectomy many years ago Cardioversion many years ago. ALLERGIES: Contrast, shellfish, iodine MEDICATIONS: Hydrochlorothiazide 25 mg daily-on hold Norvasc 10 mg daily Catapres 0.2 mg qid Labetalol 400 mg every 12 hours Cozaar 100 mg daily Eliquis 5 mg twice a day Lipitor 80 mg every evening Magnesium gluconate 500 mg twice a day Synthroid 15 g daily Potassium chloride 10 mEq daily- on hold Potassium citrate 10 mEq daily Azopt 1% 1 drop right eye tid Timolol 0.5% 1 drop both eyes qam Xalatan 0.005% 1 drop both eyes qpm SUBJECTIVE: Patient does no verbalize any complaints. Denies any CP, SOB, N/V, abdominal pain, HUTTON. VITAL SIGNS: Temperature 97.1F, pulse 64 respiratory rate of 18, blood pressure 120/52, 95% saturation on room air. Wt 71.4kg PHYSICAL EXAMINATION: GENERAL: Well nourished, well developed, sitting up in chair, no acute distress. HEENT: Normocephalic, atraumatic. +right facial droop (unchanged). PERRL, EOMI CARDIOVASCULAR: S1, S2, regular rate. No significant bilateral lower limb edema or calf tenderness. LUNGS: Decreased breath sounds throughout (probably related to poor effort 2nd to comprehension deficits), no wheezing or rhonchi appreciated. ABDOMEN: Soft, nontender, nondistended. Normoactive bowel sounds throughout. NEUROLOGICAL: Alert and oriented to person and being in hospital. Able to answer yes or no, answers inconsistent, +Dysarthria (about same as yesterday). MMT: 5/5 left upper and lower limbs in all major muscle groups, 0/5 right upper and lower limb in all major muscle groups. SKIN: Bruise left medial arm (prior PICC site), decreased. LABORATORY DATA: 12/10/16: reviewed, see below. UCx: no growth 11/21/2016: WBC count 8.1, hemoglobin 12.7, hematocrit 36.6 LDL 181 IMAGING: MRA of the brain: Patent major arteries of the brain. No hemodynamically significant stenosis identified. There is no aneurysm or AV malformation or significant size dural fistula seen. No sinus thrombus seen. MRI of the brain: Left middle cerebral artery territory acute/subacute infarct. Left frontal lobe convexal subarachnoid nor hemorrhage. CT of the head: Expected evolution of known left MCA acute infarct without evidence of hemorrhagic transformation. No evidence of new territorial infarct. No significant interval change in the left frontal subarachnoid hemorrhage. CT perfusion: Perfusion deficit defect in the left temporoparietal lobe corresponding to the known acute infarct. No salvageable significant size penumbra seen. Focal narrowing in the middle left M1 segment. Posterior left vertebral artery appears occluded. Calcification is present in the carotid arteries and vertebral arteries associated with a focal narrowing in the In her segments of the internal carotid arteries especially on the right side where stenosis could easily be up to 50% severity. Chest x-ray: Persistent consolidation in the right infra inhaler area. Persistent consolidation in the left lower lobe. A small layering effusion is suspected. No definite definite evidence of edema. EKG: Sinus rhythm with sinus arrhythmia, left axis deviation, left bundle branch block, 77 beats per minute SERENA: There is no LA appendage thrombus. No patent foramen ovale. No aortic stenosis or regurgitation. Renal ultrasound: No hydronephrosis bilaterally. There is a 1.7 cm simple appearing cyst in the lower lobe of the left kidney. Doppler: Resistive indices in the right kidney are elevated with parvus tardua wave form. The right renal artery is only visualized at the hilum with velocities within normal limits. Flow is not optimally visualized or evaluated on the current study. ASSESSMENT AND PLAN: 1. Left MCA stroke, left frontal subarachnoid hemorrhage with resultant global aphasia, dysphagia, dysarthria, dense right hemiparesis, decreased mobility and dysfunctional ADLs: Maintain systolic blood pressure less than 140. Maintain eliquis. Continue daily therapies. Continue NMES. Rehabilitation nursing for bladder, bowel, medication management. (Note: family meeting held today, reviewed patient progress, current med issues and function and anticipated plan. 45min spent in meeting). 2. ALEKSANDER: UCx neg. No retention. Improved s/p IVF. Continue to hold HCTZ for now. Continue daily weights to monitor fluid balance. Continue Cozaar for now. Continue catapres (increasing, see below). S/p Barium swallow 12/04/16 and cleared for thin liquids.[Note: spoke with daughter 12/08/16, she stated her mother had some intermittent mild renal insufficiency prior to her stroke] 3. Urinary retention: Discontinued Victor catheter on day of admission and BS w/ o significant retention. 4. Hypertension: As above, goal is for systolic blood pressure less than 140. Will increase catapres slightly again today. Continue Norvasc, labetolol and losartan current doses. Continue holding HCTZ 2nd for now. [Hx: Given HR and BP , decreased labetolol to 300mg bid 12/05/16]. Further adjustments as needed. 5. Electrolytes: Patient was on potassium, now d/cd 2nd d/c ing HCTZ. Mag level wnl, d/cd magnesium supplementation for now. 6. Bowel: Continue scheduled Colace and senna with milk of magnesia and MiraLAX on an as-needed basis. 7. Left lower limb DVT: Continued eliquis twice a day 8. Paroxysmal atrial fibrillation: Rate controlled. Currently regular and rate controlled. Continue beta aj. Continue eliquis. 9. Diet/nutrition: Prealbumin wnl. Upgraded to [facility] soft, thin liquids 12/04/16. Low-fat low-cholesterol. / Vital Signs Vital Sign - Last 24 Hours 12/09/16 12/09/16 12/09/16 12/09/16 18:19 20:00 20:00 20:54 Temp 98.7 Pulse 65 65 Resp 18 B/P 142/54 177/70 177/70 Pulse Ox 94 O2 Delivery Room Air Room Air 12/09/16 12/10/16 12/10/16 12/10/16 23:28 06:00 06:06 08:33 Temp 98.1 Pulse 69 Resp 19 B/P 177/70 157/80 157/70 150/64 Pulse Ox 94 O2 Delivery Room Air 12/10/16 12/10/16 08:33 12:21 Pulse 65 B/P 150/64 150/68 Laboratory Data CBC/BMP Laboratory Tests 12/10/16 07:53 Calcium Level 8.6 L, Red Blood Count 3.67 L, Mean Corpuscular Volume 89.5, Mean Corpuscular Hemoglobin 28.9, Mean Corpuscular Hemoglobin Concent 32.3, Red Cell Distribution Width 14.4 Labs 24H Laboratory Tests 2 12/10/16 07:53: Anion Gap 9, Blood Urea Nitrogen 28H, Creatinine 1.08H, Sodium Level 142, Potassium Level 4.1, Chloride Level 107, Carbon Dioxide Level 26, Calcium Level 8.6L, Glomerular Filtration Rate 52.7, Magnesium Level 1.8 Microbiology Microbiology 12/01/16 Urine Culture - Final, Complete Allergies Allergies: Coded Allergies: Iodine (Verified Allergy, Unknown, 12/01/16) Salicylates (Verified Allergy, Unknown, 12/01/16) Shellfish Allergy (Verified Allergy, Unknown, 12/01/16) Current Medications Current Medications Current Medications Acetaminophen (Tylenol Tab) 650 mg Q4HP PRN PO MILD PAIN (PS 1-4); Start at 14:30; Stop 12/31/16 at 14:29 Amlodipine Besylate (Norvasc) 10 mg DAILY PO Last administered on 12/10/16 08: 34; Start 12/02/16 at 09:00; Stop 01/01/17 at 08:59 Apixaban (Eliquis) 5 mg BID PO Last administered on 12/10/16 08:34; Start at 21:00; Stop 12/15/16 at 20:59 Atorvastatin Calcium (Lipitor) 80 mg QHS PO Last administered on 12/09/16 20: 54; Start 12/01/16 at 21:00; Stop 12/31/16 at 20:59 Brinzolamide (Azopt) 1 drop TID OD Last administered on 12/10/16 08:35; Start 12/01/16 at 16:00; Stop 12/31/16 at 15:59 Clonidine HCl (Catapres) 0.2 mg TID PO Last administered on 12/02/16 08:51; Start 12/01/16 at 16:00; Stop 12/02/16 at 09:31; Status DC Clonidine HCl (Catapres) 0.3 mg Q8H PO ; Start 12/10/16 at 22:00; Stop 01/09/17 at 21:59 Clonidine HCl 0.2 mg 0.2 mg Q6H PO Last administered on 12/10/16 12:21; Start 12/02/16 at 12:00; Stop 12/10/16 at 14:31; Status DC Docusate Sodium (Colace) 100 mg BID PO Last administered on 12/10/16 08:34; Start 12/01/16 at 21:00; Stop 12/31/16 at 20:59 Home Med (Med Rec Complete!) ASDIRECTED XX ; Start 12/01/16 at 18:00; Stop at 18:00; Status DC Hydrochlorothiazide (Hydrodiuril) 25 mg DAILY PO Last administered on 09:24; Start 12/02/16 at 09:00; Stop 12/03/16 at 11:46; Status DC Labetalol HCl (Normodyne, Trandate) 300 mg BID PO Last administered on 08:33; Start 12/05/16 at 21:00; Stop 01/04/17 at 20:59 Labetalol HCl (Normodyne, Trandate) 400 mg BID PO Last administered on 21:38; Start 12/01/16 at 21:00; Stop 12/05/16 at 09:28; Status DC Latanoprost (Xalatan 0.005% Op Soln) 1 drop QHS OU Last administered on 20:54; Start 12/01/16 at 21:00; Stop 12/31/16 at 20:59 Levothyroxine Sodium (Synthroid) 0.05 mg DAILY@06 PO Last administered on 06:06; Start 12/02/16 at 06:00; Stop 01/01/17 at 05:59 Losartan Potassium (Cozaar) 100 mg DAILY PO Last administered on 12/10/16 08: 33; Start 12/02/16 at 09:00; Stop 01/01/17 at 08:59 Magnesium Gluconate (Magnesium Gluconate) 500 mg BID PO Last administered on 09:09; Start 12/01/16 at 21:00; Stop 12/05/16 at 09:36; Status DC Magnesium Hydroxide (Milk Of Magnesia) 30 ml DAILYPRN PRN PO CONSTIPATION Last administered on 12/07/16 08:09; Start 12/01/16 at 14:30; Stop 12/31/16 at 14:29 Miscellaneous (Unresolved Clarification Entry) SEE LABEL COMMENTS UNRESOLVED XX ; Start 12/01/16 at 00:01; Stop 12/01/16 at 17:54; Status DC Pantoprazole Sodium (Protonix) 40 mg DAILY PO Last administered on 12/10/16 08 :32; Start 12/01/16 at 09:00; Stop 12/31/16 at 08:59 Polyethylene Glycol (Miralax) 1 pkt DAILYPRN PRN PO CONSTIPATION; Start at 14:30; Stop 12/31/16 at 14:29 Potassium Chloride (Micro-K Extencaps) 10 meq DAILY PO Last administered on 09:22; Start 12/02/16 at 09:00; Stop 12/03/16 at 12:00; Status DC Potassium Citrate (Urocit-K) 1,080 mg DAILY@08 PO Last administered on 08:31; Start 12/02/16 at 08:00; Stop 01/01/17 at 07:59 Senna (Senokot) 1 tab QHS PO Last administered on 12/09/16 20:54; Start at 21:00; Stop 12/31/16 at 20:59 Sodium Chloride (Nacl 0.9%) 1,000 ml @ 50 mls/hr Q20H IV Last administered on 12/06/16 00:20; Start 12/04/16 at 09:15; Stop 12/06/16 at 10:45; Status DC Timolol Maleate (Timoptic 0.5% Ophth Janine) 1 drop DAILY OU Last administered on 12/10/16 08:35; Start 12/02/16 at 09:00; Stop 01/01/17 at 08:59 OLRE GAINES MD Dec 10, 2016 14:45
[2016-12-10 20:00] VITALS: BP 161/68
[2016-12-10] MEDS: cloNIDine 0.1 MG TAB PO SCH (21:40)
[2016-12-10] MEDS: ATORVASTATIN 20 MG TAB PO SCH (21:41)
[2016-12-10] MEDS: SENNA 8.6 MG TAB (SENOKOT) PO SCH (21:42)
[2016-12-10] MEDS: LATANOPROST 0.005% OPHTH SOLN 2.5 ML OU SCH (21:42)
[2016-12-11 06:00] VITALS: BP 177/76
[2016-12-11] MEDS: LEVOTHYROXINE 0.05 MG TAB (50 MCG) PO SCH (06:26)
[2016-12-11] MEDS: cloNIDine 0.1 MG TAB PO SCH ×3 (06:27→21:15)
[2016-12-11] MEDS: DOCUSATE SODIUM 100 MG CAP PO SCH ×2 (08:56→21:15)
[2016-12-11] MEDS: POTASSIUM CITRATE 1080 MG (10MEQ) TAB PO SCH (08:56)
[2016-12-11] MEDS: APIXABAN 5 MG TAB (ELIQUIS) PO SCH ×2 (08:57→21:15)
[2016-12-11] MEDS: BRINZOLAMIDE 1 % OPHTH SUSP (AZOPT) 10ML OD SCH ×3 (08:57→21:16)
[2016-12-11] MEDS: TIMOLOL MALEATE 0.5% OPHTH SOLN 5 ML OU SCH (08:57)
[2016-12-11] MEDS: PANTOPRAZOLE 40MG TAB (PROTONIX) PO SCH (08:57)
[2016-12-11] MEDS: LOSARTAN 50 MG TAB PO SCH (08:59)
[2016-12-11] MEDS: LABETALOL 100 MG TAB PO SCH ×2 (09:00→21:15)
[2016-12-11] MEDS: amLODIPine 10 MG TAB PO SCH (09:00)
--- NOTE | 2016-12-11 12:58 | IPNPDOC ---
Shot Hole Shooter Progress Note PROGRESS NOTE DATE OF SERVICE: 12/11/16 IDENTIFICATION STATEMENT: Patient is a 76-year-old right hand dominant woman with left MCA infarct admitted for comprehensive integrated inpatient rehabilitation. PAST MEDICAL HISTORY: Hypertension Hypothyroidism Paroxysmal atrial fibrillation s/p cardioversion PAST SURGICAL HISTORY: Tonsillectomy many years ago Cardioversion many years ago. ALLERGIES: Contrast, shellfish, iodine MEDICATIONS: Hydrochlorothiazide 25 mg daily-on hold Norvasc 10 mg daily Catapres 0.3 mg q8h Labetalol 400 mg every 12 hours Cozaar 100 mg daily Eliquis 5 mg twice a day Lipitor 80 mg every evening Magnesium gluconate 500 mg twice a day Synthroid 15 g daily Potassium chloride 10 mEq daily- on hold Potassium citrate 10 mEq daily Azopt 1% 1 drop right eye tid Timolol 0.5% 1 drop both eyes qam Xalatan 0.005% 1 drop both eyes qpm SUBJECTIVE: Patient does no indicate any complaints. Indicates that she feels good. Denies any CP, SOB, N/V, abdominal pain, HUTTON. VITAL SIGNS: Temperature 97.5F, pulse 62 respiratory rate of 19, blood pressure 167/74, 95% saturation on room air. Wt 71.5kg PHYSICAL EXAMINATION: GENERAL: Well nourished, well developed, sitting up in chair, no acute distress. HEENT: Normocephalic, atraumatic. +right facial droop (unchanged). PERRL, EOMI CARDIOVASCULAR: S1, S2, regular rate. No significant bilateral lower limb edema or calf tenderness. LUNGS: Decreased breath sounds throughout (probably related to poor effort 2nd to comprehension deficits), no wheezing or rhonchi appreciated. ABDOMEN: Soft, nontender, nondistended. Normoactive bowel sounds throughout. NEUROLOGICAL: Alert and oriented to person and being in hospital. Able to answer yes or no, answers inconsistent, episodic spontaneous words, +Dysarthria (about same). MMT: 5/5 left upper and lower limbs in all major muscle groups, 0/ 5 right upper and lower limb in all major muscle groups. SKIN: Bruise left medial arm (prior PICC site), decreasing. LABORATORY DATA: 12/10/16: reviewed, see below. UCx: no growth 11/21/2016: WBC count 8.1, hemoglobin 12.7, hematocrit 36.6 LDL 181 IMAGING: MRA of the brain: Patent major arteries of the brain. No hemodynamically significant stenosis identified. There is no aneurysm or AV malformation or significant size dural fistula seen. No sinus thrombus seen. MRI of the brain: Left middle cerebral artery territory acute/subacute infarct. Left frontal lobe convexal subarachnoid nor hemorrhage. CT of the head: Expected evolution of known left MCA acute infarct without evidence of hemorrhagic transformation. No evidence of new territorial infarct. No significant interval change in the left frontal subarachnoid hemorrhage. CT perfusion: Perfusion deficit defect in the left temporoparietal lobe corresponding to the known acute infarct. No salvageable significant size penumbra seen. Focal narrowing in the middle left M1 segment. Posterior left vertebral artery appears occluded. Calcification is present in the carotid arteries and vertebral arteries associated with a focal narrowing in the In her segments of the internal carotid arteries especially on the right side where stenosis could easily be up to 50% severity. Chest x-ray: Persistent consolidation in the right infra inhaler area. Persistent consolidation in the left lower lobe. A small layering effusion is suspected. No definite definite evidence of edema. EKG: Sinus rhythm with sinus arrhythmia, left axis deviation, left bundle branch block, 77 beats per minute SERENA: There is no LA appendage thrombus. No patent foramen ovale. No aortic stenosis or regurgitation. Renal ultrasound: No hydronephrosis bilaterally. There is a 1.7 cm simple appearing cyst in the lower lobe of the left kidney. Doppler: Resistive indices in the right kidney are elevated with parvus tardua wave form. The right renal artery is only visualized at the hilum with velocities within normal limits. Flow is not optimally visualized or evaluated on the current study. ASSESSMENT AND PLAN: 1. Left MCA stroke, left frontal subarachnoid hemorrhage with resultant global aphasia, dysphagia, dysarthria, dense right hemiparesis, decreased mobility and dysfunctional ADLs: Goal systolic blood pressure less than 140. Maintain eliquis. Continue daily therapies. Continue NMES. Rehabilitation nursing for bladder, bowel, medication management. (Note: family meeting held 12/11/16, reviewed patient progress, current med issues and function and anticipated plan) . 2. ALEKSANDER: UCx neg. No retention. Improved s/p IVF and holding HCTZ. Given persistently elevated Bp despite increase in catapres, will restart HCTZ. Continue daily weights to monitor fluid balance. Continue Cozaar current dose. Continue catapres (increasing, see below). S/p Barium swallow 12/04/16 and cleared for thin liquids.[Note: spoke with daughter 12/08/16, she stated her mother had some intermittent mild renal insufficiency prior to her stroke] 3. Urinary retention: Discontinued Victor catheter on day of admission and BS w/ o significant retention. 4. Hypertension: As above, goal is for systolic blood pressure less than 140. BP has been difficult to control. She is s/p increase catapres (last increase ). As above, restart HCTZ today. Continue Norvasc, labetolol and losartan current doses. [Hx: Given HR and BP, decreased labetolol to 300mg bid 12/05/16]. Further adjustments as needed. 5. Electrolytes: Restarted potassium supplementation 2nd restarting HCTZ. Mag level wnl, d/cd magnesium supplementation for now. 6. Bowel: Continue scheduled Colace and senna with milk of magnesia and MiraLAX on an as-needed basis. 7. Left lower limb DVT: Continued eliquis twice a day 8. Paroxysmal atrial fibrillation: Rate controlled. Currently regular and rate controlled. Continue beta aj. Continue eliquis. 9. Diet/nutrition: Prealbumin wnl. Upgraded to [facility] soft, thin liquids 12/04/16. Low-fat low-cholesterol. / Vital Signs Vital Sign - Last 24 Hours 12/10/16 12/10/16 12/10/16 12/10/16 14:00 15:20 20:00 20:00 Temp 97.0 98.1 Pulse 67 59 Resp 20 19 B/P 149/68 149/68 161/68 Pulse Ox 96 96 O2 Delivery Room Air Room Air 12/10/16 12/11/16 12/11/16 12/11/16 21:40 06:00 06:27 08:59 Temp 97.5 Pulse 64 69 Resp 19 B/P 180/72 177/76 177/76 167/74 Pulse Ox 95 O2 Delivery Room Air 12/11/16 12/11/16 09:00 10:45 Pulse 62 B/P 167/74 O2 Delivery Room Air Microbiology Microbiology 12/01/16 Urine Culture - Final, Complete Allergies Allergies: Coded Allergies: Iodine (Verified Allergy, Unknown, 12/01/16) Salicylates (Verified Allergy, Unknown, 12/01/16) Shellfish Allergy (Verified Allergy, Unknown, 12/01/16) Current Medications Current Medications Current Medications Acetaminophen (Tylenol Tab) 650 mg Q4HP PRN PO MILD PAIN (PS 1-4); Start at 14:30; Stop 12/31/16 at 14:29 Amlodipine Besylate (Norvasc) 10 mg DAILY PO Last administered on 12/11/16 09: 00; Start 12/02/16 at 09:00; Stop 01/01/17 at 08:59 Apixaban (Eliquis) 5 mg BID PO Last administered on 12/11/16 08:57; Start at 21:00; Stop 12/15/16 at 20:59 Atorvastatin Calcium (Lipitor) 80 mg QHS PO Last administered on 12/10/16 21: 41; Start 12/01/16 at 21:00; Stop 12/31/16 at 20:59 Brinzolamide (Azopt) 1 drop TID OD Last administered on 12/11/16 08:57; Start 12/01/16 at 16:00; Stop 12/31/16 at 15:59 Clonidine HCl (Catapres) 0.2 mg TID PO Last administered on 12/02/16 08:51; Start 12/01/16 at 16:00; Stop 12/02/16 at 09:31; Status DC Clonidine HCl (Catapres) 0.3 mg Q8H PO Last administered on 12/11/16 06:27; Start 12/10/16 at 22:00; Stop 01/09/17 at 21:59 Clonidine HCl 0.2 mg 0.2 mg Q6H PO Last administered on 12/10/16 12:21; Start 12/02/16 at 12:00; Stop 12/10/16 at 14:31; Status DC Docusate Sodium (Colace) 100 mg BID PO Last administered on 12/11/16 08:56; Start 12/01/16 at 21:00; Stop 12/31/16 at 20:59 Home Med (Med Rec Complete!) ASDIRECTED XX ; Start 12/01/16 at 18:00; Stop at 18:00; Status DC Hydrochlorothiazide (Hydrodiuril) 12.5 mg DAILY PO ; Start 12/12/16 at 09:00; Stop 01/11/17 at 08:59; Status UNV Hydrochlorothiazide (Hydrodiuril) 25 mg DAILY PO Last administered on 09:24; Start 12/02/16 at 09:00; Stop 12/03/16 at 11:46; Status DC Labetalol HCl (Normodyne, Trandate) 300 mg BID PO Last administered on 09:00; Start 12/05/16 at 21:00; Stop 01/04/17 at 20:59 Labetalol HCl (Normodyne, Trandate) 400 mg BID PO Last administered on 21:38; Start 12/01/16 at 21:00; Stop 12/05/16 at 09:28; Status DC Latanoprost (Xalatan 0.005% Op Soln) 1 drop QHS OU Last administered on 21:42; Start 12/01/16 at 21:00; Stop 12/31/16 at 20:59 Levothyroxine Sodium (Synthroid) 0.05 mg DAILY@06 PO Last administered on 06:26; Start 12/02/16 at 06:00; Stop 01/01/17 at 05:59 Losartan Potassium (Cozaar) 100 mg DAILY PO Last administered on 12/11/16 08: 59; Start 12/02/16 at 09:00; Stop 01/01/17 at 08:59 Magnesium Gluconate (Magnesium Gluconate) 500 mg BID PO Last administered on 09:09; Start 12/01/16 at 21:00; Stop 12/05/16 at 09:36; Status DC Magnesium Hydroxide (Milk Of Magnesia) 30 ml DAILYPRN PRN PO CONSTIPATION Last administered on 12/07/16 08:09; Start 12/01/16 at 14:30; Stop 12/31/16 at 14:29 Miscellaneous (Unresolved Clarification Entry) SEE LABEL COMMENTS UNRESOLVED XX ; Start 12/01/16 at 00:01; Stop 12/01/16 at 17:54; Status DC Pantoprazole Sodium (Protonix) 40 mg DAILY PO Last administered on 12/11/16 08 :57; Start 12/01/16 at 09:00; Stop 12/31/16 at 08:59 Polyethylene Glycol (Miralax) 1 pkt DAILYPRN PRN PO CONSTIPATION; Start at 14:30; Stop 12/31/16 at 14:29 Potassium Chloride (Micro-K Extencaps) 10 meq DAILY PO Last administered on 09:22; Start 12/02/16 at 09:00; Stop 12/03/16 at 12:00; Status DC Potassium Chloride (Micro-K Extencaps) 10 meq DAILY PO ; Start 12/12/16 at 09:00 ; Stop 01/11/17 at 08:59; Status UNV Potassium Citrate (Urocit-K) 1,080 mg DAILY@08 PO Last administered on 08:56; Start 12/02/16 at 08:00; Stop 01/01/17 at 07:59 Senna (Senokot) 1 tab QHS PO Last administered on 12/10/16 21:42; Start at 21:00; Stop 12/31/16 at 20:59 Sodium Chloride (Nacl 0.9%) 1,000 ml @ 50 mls/hr Q20H IV Last administered on 12/06/16 00:20; Start 12/04/16 at 09:15; Stop 12/06/16 at 10:45; Status DC Timolol Maleate (Timoptic 0.5% Ophth Janine) 1 drop DAILY OU Last administered on 12/11/16 08:57; Start 12/02/16 at 09:00; Stop 01/01/17 at 08:59 LORE GAINES MD Dec 11, 2016 12:58
[2016-12-11] MEDS ORDERED: hydroCHLOROthiazide 12.5 MG CAPSULE PO ONE (13:15)
[2016-12-11] MEDS ORDERED: POTASSIUM CHLORIDE 10 MEQ SR TABLET PO ONE (13:15)
[2016-12-11 13:50] VITALS: BP 152/54
[2016-12-11 20:00] VITALS: BP 176/76
[2016-12-11] MEDS: ATORVASTATIN 20 MG TAB PO SCH (21:14)
[2016-12-11] MEDS: SENNA 8.6 MG TAB (SENOKOT) PO SCH (21:15)
[2016-12-11] MEDS: LATANOPROST 0.005% OPHTH SOLN 2.5 ML OU SCH (21:16)
[2016-12-12 06:00] VITALS: BP 198/82
[2016-12-12] MEDS: cloNIDine 0.1 MG TAB PO SCH ×3 (06:04→22:49)
[2016-12-12] MEDS: LEVOTHYROXINE 0.05 MG TAB (50 MCG) PO SCH (06:04)
[2016-12-12 07:30] VITALS: BP 172/60
[2016-12-12 07:39] LABS: MEAN CORPUSCULAR HEMOGLOBIN 29.2 pg (27.0-33.0); MEAN CORPUSCULAR HGB CONC 33.5 g/dl (32.0-36.5); MEAN CORPUSCULAR VOLUME 87.1 fl (80.0-96.0); RED CELL DISTRIBUTION WIDTH 14.5 % (11.5-14.5); WHITE BLOOD COUNT 5.8 K/mm3 (4.0-10.0)
[2016-12-12 07:57] LABS: CALCIUM LEVEL 9.1 MG/DL (8.8-10.2); CREATININE FOR GFR 1.03 MG/DL (0.55-1.02); GLOMERULAR FILTRATION RATE 55.6 (>39); POTASSIUM SERUM 3.9 MEQ/L (3.5-5.1)
[2016-12-12] MEDS: POTASSIUM CHLORIDE 10 MEQ SR TABLET PO SCH (08:33)
[2016-12-12] MEDS: amLODIPine 10 MG TAB PO SCH (08:33)
[2016-12-12] MEDS: PANTOPRAZOLE 40MG TAB (PROTONIX) PO SCH (08:33)
[2016-12-12] MEDS: APIXABAN 5 MG TAB (ELIQUIS) PO SCH ×2 (08:33→21:13)
[2016-12-12] MEDS: LABETALOL 100 MG TAB PO SCH ×2 (08:34→21:13)
[2016-12-12] MEDS: hydroCHLOROthiazide 12.5 MG CAPSULE PO SCH (08:34)
[2016-12-12] MEDS: DOCUSATE SODIUM 100 MG CAP PO SCH ×2 (08:34→21:13)
[2016-12-12] MEDS: LOSARTAN 50 MG TAB PO SCH (08:34)
[2016-12-12] MEDS: POTASSIUM CITRATE 1080 MG (10MEQ) TAB PO SCH (08:34)
[2016-12-12] MEDS: TIMOLOL MALEATE 0.5% OPHTH SOLN 5 ML OU SCH (08:35)
[2016-12-12] MEDS: BRINZOLAMIDE 1 % OPHTH SUSP (AZOPT) 10ML OD SCH ×3 (08:35→21:14)
[2016-12-12 11:09] VITALS: BP 130/62
--- NOTE | 2016-12-12 11:26 | IPNPDOC ---
Senior Insight Manager Progress Note PROGRESS NOTE DATE OF SERVICE: 12/12/16 IDENTIFICATION STATEMENT: Patient is a 76-year-old right hand dominant woman with left MCA infarct admitted for comprehensive integrated inpatient rehabilitation. PAST MEDICAL HISTORY: Hypertension Hypothyroidism Paroxysmal atrial fibrillation s/p cardioversion PAST SURGICAL HISTORY: Tonsillectomy many years ago Cardioversion many years ago. ALLERGIES: Contrast, shellfish, iodine MEDICATIONS: Hydrochlorothiazide 12.5mg daily Norvasc 10 mg daily Catapres 0.3 mg q8h Labetalol 400 mg every 12 hours Cozaar 100 mg daily HCTZ 12.5mg daily Potassium chloride 10mEq daily Eliquis 5 mg twice a day Lipitor 80 mg every evening Synthroid 15 g daily Potassium citrate 10 mEq daily Azopt 1% 1 drop right eye tid Timolol 0.5% 1 drop both eyes qam Xalatan 0.005% 1 drop both eyes qpm SUBJECTIVE: Patient does no indicate any complaints. Indicates that she feels good. Denies any CP, SOB, N/V, abdominal pain, HUTTON. VITAL SIGNS: Temperature 98.9F, pulse 68 respiratory rate of 18, blood pressure 172/60 (repeat 130/62), 94% saturation on room air. Wt 72.4 kg PHYSICAL EXAMINATION: GENERAL: Well nourished, well developed, sitting up in WC, no acute distress. HEENT: Normocephalic, atraumatic. +right facial droop (sl less than admission). PERRL, EOMI CARDIOVASCULAR: S1, S2, regular rate. No significant left lower limb edema or calf tenderness. Trace right LL edema, no calf tenderness. LUNGS: Decreased breath sounds throughout (probably related to poor effort 2nd to comprehension deficits, but improved effort over admission), no wheezing or rhonchi appreciated. ABDOMEN: Soft, nontender, nondistended. Normoactive bowel sounds throughout. NEUROLOGICAL: Alert and oriented to person and being in hospital. Able to answer yes or no, answers inconsistent, episodic spontaneous words, +Dysarthria (decreased since admission). MMT: 5/5 left upper and lower limbs in all major muscle groups, 0/5 right upper and lower limb in all major muscle groups except 1/5 right shoulder shrug. SKIN: Bruise left medial arm (prior PICC site), decreasing. LABORATORY DATA: 12/12/16: reviewed, see below. UCx: no growth ASSESSMENT AND PLAN: 1. Left MCA stroke, left frontal subarachnoid hemorrhage with resultant global aphasia, dysphagia, dysarthria, dense right hemiparesis, decreased mobility and dysfunctional ADLs: Goal systolic blood pressure less than 140. Maintain eliquis. Patient making progress. Continue daily therapies. Rehabilitation nursing for bladder, bowel, medication management. (Note: family meeting held , reviewed patient progress, current med issues and function and anticipated plan). 2. ALEKSANDER: UCx neg. No retention. Improved s/p IVF and holding HCTZ. Given persistently elevated BP despite increase in catapres, restarted HCTZ 12/11/16. Continue daily weights to monitor fluid balance. Continue Cozaar current dose. Continue catapres. S/p Barium swallow 12/04/16 and cleared for thin liquids.[Note : spoke with daughter 12/08/16, she stated her mother had some intermittent mild renal insufficiency prior to her stroke] 3. Urinary retention: Discontinued Victor catheter on day of admission and BS w/ o significant retention. 4. Hypertension: As above, goal is for systolic blood pressure less than 140. BP has been difficult to control. She is s/p increase catapres (last increase ). As above, restarted HCTZ 12/11/16. Continue Norvasc, labetolol and losartan current doses. [Hx: Given HR and BP, decreased labetolol to 300mg bid ]. Further adjustments as needed. 5. Electrolytes: Restarted potassium supplementation 2nd restarting HCTZ. Mag level wnl, d/cd magnesium supplementation. 6. Bowel: Continue scheduled Colace and senna with milk of magnesia and MiraLAX on an as-needed basis. 7. Left lower limb DVT: Continued eliquis twice a day 8. Paroxysmal atrial fibrillation: Rate controlled. Currently regular and rate controlled. Continue beta aj. Continue eliquis. 9. Diet/nutrition: Prealbumin wnl. Upgraded to [facility] soft, thin liquids 12/04/16. Low-fat low-cholesterol. / Vital Signs Vital Sign - Last 24 Hours 12/11/16 12/11/16 12/11/16 12/11/16 13:35 13:50 20:00 20:00 Temp 98.7 98.5 Pulse 68 63 Resp 18 18 B/P 152/56 152/54 176/76 Pulse Ox 96 96 O2 Delivery Room Air Room Air Room Air 12/11/16 12/12/16 12/12/16 12/12/16 21:15 06:00 06:04 07:30 Temp 98.9 Pulse 63 68 Resp 18 B/P 176/76 198/82 198/82 172/60 Pulse Ox 94 O2 Delivery Room Air 12/12/16 12/12/16 12/12/16 12/12/16 08:33 08:34 08:34 11:09 Pulse 68 68 B/P 172/60 172/60 172/60 130/62 Laboratory Data CBC/BMP Laboratory Tests 12/12/16 07:05 Calcium Level 9.1, Red Blood Count 3.71 L, Mean Corpuscular Volume 87.1, Mean Corpuscular Hemoglobin 29.2, Mean Corpuscular Hemoglobin Concent 33.5, Red Cell Distribution Width 14.5 Labs 24H Laboratory Tests 2 12/12/16 07:05: Anion Gap 9, Blood Urea Nitrogen 31H, Creatinine 1.03H, Sodium Level 142, Potassium Level 3.9, Chloride Level 105, Carbon Dioxide Level 28, Calcium Level 9.1, Glomerular Filtration Rate 55.6 Allergies Allergies: Coded Allergies: Iodine (Verified Allergy, Unknown, 12/01/16) Salicylates (Verified Allergy, Unknown, 12/01/16) Shellfish Allergy (Verified Allergy, Unknown, 12/01/16) Current Medications Current Medications Current Medications Acetaminophen (Tylenol Tab) 650 mg Q4HP PRN PO MILD PAIN (PS 1-4); Start at 14:30; Stop 12/31/16 at 14:29 Amlodipine Besylate (Norvasc) 10 mg DAILY PO Last administered on 12/12/16 08: 33; Start 12/02/16 at 09:00; Stop 01/01/17 at 08:59 Apixaban (Eliquis) 5 mg BID PO Last administered on 12/12/16 08:33; Start at 21:00; Stop 12/15/16 at 20:59 Atorvastatin Calcium (Lipitor) 80 mg QHS PO Last administered on 12/11/16 21: 14; Start 12/01/16 at 21:00; Stop 12/31/16 at 20:59 Brinzolamide (Azopt) 1 drop TID OD Last administered on 12/12/16 08:35; Start 12/01/16 at 16:00; Stop 12/31/16 at 15:59 Clonidine HCl (Catapres) 0.2 mg TID PO Last administered on 12/02/16 08:51; Start 12/01/16 at 16:00; Stop 12/02/16 at 09:31; Status DC Clonidine HCl (Catapres) 0.3 mg Q8H PO Last administered on 12/12/16 06:04; Start 12/10/16 at 22:00; Stop 01/09/17 at 21:59 Clonidine HCl 0.2 mg 0.2 mg Q6H PO Last administered on 12/10/16 12:21; Start 12/02/16 at 12:00; Stop 12/10/16 at 14:31; Status DC Docusate Sodium (Colace) 100 mg BID PO Last administered on 12/12/16 08:34; Start 12/01/16 at 21:00; Stop 12/31/16 at 20:59 Home Med (Med Rec Complete!) ASDIRECTED XX ; Start 12/01/16 at 18:00; Stop at 18:00; Status DC Hydrochlorothiazide (Hydrodiuril) 12.5 mg DAILY PO Last administered on 08:34; Start 12/12/16 at 09:00; Stop 01/11/17 at 08:59 Hydrochlorothiazide (Hydrodiuril) 25 mg DAILY PO Last administered on 09:24; Start 12/02/16 at 09:00; Stop 12/03/16 at 11:46; Status DC Labetalol HCl (Normodyne, Trandate) 300 mg BID PO Last administered on 08:34; Start 12/05/16 at 21:00; Stop 01/04/17 at 20:59 Labetalol HCl (Normodyne, Trandate) 400 mg BID PO Last administered on 21:38; Start 12/01/16 at 21:00; Stop 12/05/16 at 09:28; Status DC Latanoprost (Xalatan 0.005% Op Soln) 1 drop QHS OU Last administered on 21:16; Start 12/01/16 at 21:00; Stop 12/31/16 at 20:59 Levothyroxine Sodium (Synthroid) 0.05 mg DAILY@06 PO Last administered on 06:04; Start 12/02/16 at 06:00; Stop 01/01/17 at 05:59 Losartan Potassium (Cozaar) 100 mg DAILY PO Last administered on 12/12/16 08: 34; Start 12/02/16 at 09:00; Stop 01/01/17 at 08:59 Magnesium Gluconate (Magnesium Gluconate) 500 mg BID PO Last administered on 09:09; Start 12/01/16 at 21:00; Stop 12/05/16 at 09:36; Status DC Magnesium Hydroxide (Milk Of Magnesia) 30 ml DAILYPRN PRN PO CONSTIPATION Last administered on 12/07/16 08:09; Start 12/01/16 at 14:30; Stop 12/31/16 at 14:29 Miscellaneous (Unresolved Clarification Entry) SEE LABEL COMMENTS UNRESOLVED XX ; Start 12/01/16 at 00:01; Stop 12/01/16 at 17:54; Status DC Pantoprazole Sodium (Protonix) 40 mg DAILY PO Last administered on 12/12/16 08 :33; Start 12/01/16 at 09:00; Stop 12/31/16 at 08:59 Polyethylene Glycol (Miralax) 1 pkt DAILYPRN PRN PO CONSTIPATION; Start at 14:30; Stop 12/31/16 at 14:29 Potassium Chloride (Micro-K Extencaps) 10 meq DAILY PO Last administered on 09:22; Start 12/02/16 at 09:00; Stop 12/03/16 at 12:00; Status DC Potassium Chloride (Micro-K Extencaps) 10 meq DAILY PO Last administered on 08:33; Start 12/12/16 at 09:00; Stop 01/11/17 at 08:59 Potassium Citrate (Urocit-K) 1,080 mg DAILY@08 PO Last administered on 3/24/ 17at 08:34; Start 12/02/16 at 08:00; Stop 01/01/17 at 07:59 Senna (Senokot) 1 tab QHS PO Last administered on 12/11/16 21:15; Start at 21:00; Stop 12/31/16 at 20:59 Sodium Chloride (Nacl 0.9%) 1,000 ml @ 50 mls/hr Q20H IV Last administered on 12/06/16 00:20; Start 12/04/16 at 09:15; Stop 12/06/16 at 10:45; Status DC Timolol Maleate (Timoptic 0.5% Ophth Janine) 1 drop DAILY OU Last administered on 12/12/16 08:35; Start 12/02/16 at 09:00; Stop 01/01/17 at 08:59 LORE GAINES MD Dec 12, 2016 11:26
[2016-12-12 14:00] VITALS: BP 138/63
[2016-12-12] MEDS: MOM 30ML SUSPENSION UDC PO PRN (15:55)
[2016-12-12 20:00] VITALS: BP 159/70
[2016-12-12] MEDS: ATORVASTATIN 20 MG TAB PO SCH (21:12)
[2016-12-12] MEDS: SENNA 8.6 MG TAB (SENOKOT) PO SCH (21:13)
[2016-12-12] MEDS: LATANOPROST 0.005% OPHTH SOLN 2.5 ML OU SCH (21:14)
[2016-12-13] MEDS: cloNIDine 0.1 MG TAB PO SCH ×3 (06:00→21:24)
[2016-12-13] MEDS: LEVOTHYROXINE 0.05 MG TAB (50 MCG) PO SCH (06:00)
[2016-12-13] MEDS: APIXABAN 5 MG TAB (ELIQUIS) PO SCH ×2 (09:26→21:24)
[2016-12-13] MEDS: LABETALOL 100 MG TAB PO SCH ×2 (09:26→21:24)
[2016-12-13] MEDS: POTASSIUM CITRATE 1080 MG (10MEQ) TAB PO SCH (09:27)
[2016-12-13] MEDS: POTASSIUM CHLORIDE 10 MEQ SR TABLET PO SCH (09:27)
[2016-12-13] MEDS: PANTOPRAZOLE 40MG TAB (PROTONIX) PO SCH (09:27)
[2016-12-13] MEDS: LOSARTAN 50 MG TAB PO SCH (09:28)
[2016-12-13] MEDS: hydroCHLOROthiazide 12.5 MG CAPSULE PO SCH (09:29)
[2016-12-13] MEDS: amLODIPine 10 MG TAB PO SCH (09:29)
[2016-12-13] MEDS: DOCUSATE SODIUM 100 MG CAP PO SCH ×2 (09:29→21:24)
[2016-12-13] MEDS: BRINZOLAMIDE 1 % OPHTH SUSP (AZOPT) 10ML OD SCH ×3 (09:30→21:25)
[2016-12-13] MEDS: TIMOLOL MALEATE 0.5% OPHTH SOLN 5 ML OU SCH (09:30)
[2016-12-13 14:39] VITALS: BP 148/60
[2016-12-13 20:00] VITALS: BP 177/74
[2016-12-13] MEDS: ATORVASTATIN 20 MG TAB PO SCH (21:23)
[2016-12-13] MEDS: SENNA 8.6 MG TAB (SENOKOT) PO SCH (21:24)
[2016-12-13] MEDS: LATANOPROST 0.005% OPHTH SOLN 2.5 ML OU SCH (21:25)
[2016-12-14] MEDS: LEVOTHYROXINE 0.05 MG TAB (50 MCG) PO SCH (05:01)
[2016-12-14] MEDS: cloNIDine 0.1 MG TAB PO SCH (05:01)
[2016-12-14 06:00] VITALS: BP 199/82
[2016-12-14 06:22] LABS: MEAN CORPUSCULAR HEMOGLOBIN 29.3 pg (27.0-33.0); MEAN CORPUSCULAR HGB CONC 34.1 g/dl (32.0-36.5); RED CELL DISTRIBUTION WIDTH 14.5 % (11.5-14.5); WHITE BLOOD COUNT 6.8 K/mm3 (4.0-10.0)
[2016-12-14] MEDS ORDERED: **hydrALAZINE** 10 MG TAB PO ONE (06:45)
[2016-12-14 07:12] LABS: CREATININE FOR GFR 1.15 MG/DL (0.55-1.02); POTASSIUM SERUM 4.3 MEQ/L (3.5-5.1)
[2016-12-14] MEDS: LOSARTAN 50 MG TAB PO SCH (08:43)
[2016-12-14] MEDS: POTASSIUM CITRATE 1080 MG (10MEQ) TAB PO SCH (08:43)
[2016-12-14] MEDS: POTASSIUM CHLORIDE 10 MEQ SR TABLET PO SCH (08:44)
[2016-12-14] MEDS: PANTOPRAZOLE 40MG TAB (PROTONIX) PO SCH (08:44)
[2016-12-14] MEDS: LABETALOL 100 MG TAB PO SCH ×2 (08:44→20:32)
[2016-12-14] MEDS: amLODIPine 10 MG TAB PO SCH (08:44)
[2016-12-14] MEDS: TIMOLOL MALEATE 0.5% OPHTH SOLN 5 ML OU SCH (08:45)
[2016-12-14] MEDS: BRINZOLAMIDE 1 % OPHTH SUSP (AZOPT) 10ML OD SCH ×3 (08:45→20:33)
[2016-12-14] MEDS: APIXABAN 5 MG TAB (ELIQUIS) PO SCH ×2 (08:45→20:31)
[2016-12-14] MEDS: hydroCHLOROthiazide 12.5 MG CAPSULE PO SCH (08:45)
[2016-12-14] MEDS: DOCUSATE SODIUM 100 MG CAP PO SCH ×2 (08:45→20:31)
[2016-12-14] MEDS: **hydrALAZINE HCL** 25 MG TAB PO SCH ×3 (12:00→23:38)
--- NOTE | 2016-12-14 13:47 | REP ---
Clinical: History of recent hemorrhagic infarction. Comparison: None. Findings: Low density changes involving the left hemisphere specifically with low density changes in the rodriguez radiata and periventricular left frontal lobe as well as subtle linear high density in the frontotemporoparietal region are compatible with the history of recent infarction with subdural hemorrhage. There is no evidence for discrete mass, large hemorrhagic focus, significant edema or mass effect. No extra-axial fluid collection is appreciated. No midline shift. The ventricles and basilar cisterns appear relatively normal. No the calvarium is intact the sinuses are clear. Impression: Low density changes involving the left hemisphere with very subtle linear high density is consistent with a history of recent left middle cerebral artery infarction and subdural hemorrhage and likely represent resolving changes. No significant mass/mass effect, focal area of acute hemorrhage, edema or midline shift is appreciated on current examination. Signed by Edgar Kelsey MD 12/14/2016 01:39 P
[2016-12-14 14:00] VITALS: BP 129/61
[2016-12-14 20:00] VITALS: BP 146/66
[2016-12-14] MEDS: ATORVASTATIN 20 MG TAB PO SCH (20:32)
[2016-12-14] MEDS: SENNA 8.6 MG TAB (SENOKOT) PO SCH (20:32)
[2016-12-14] MEDS: LATANOPROST 0.005% OPHTH SOLN 2.5 ML OU SCH (20:34)
[2016-12-15] MEDS: LEVOTHYROXINE 0.05 MG TAB (50 MCG) PO SCH (05:40)
[2016-12-15] MEDS: **hydrALAZINE HCL** 25 MG TAB PO SCH ×3 (05:43→18:02)
[2016-12-15 06:00] VITALS: BP 152/70
[2016-12-15 06:40] LABS: MEAN CORPUSCULAR HEMOGLOBIN 29.3 pg (27.0-33.0); MEAN CORPUSCULAR HGB CONC 33.9 g/dl (32.0-36.5); MEAN CORPUSCULAR VOLUME 86.3 fl (80.0-96.0); RED CELL DISTRIBUTION WIDTH 14.6 % (11.5-14.5); WHITE BLOOD COUNT 6.6 K/mm3 (4.0-10.0)
[2016-12-15 07:33] LABS: CALCIUM LEVEL 8.5 MG/DL (8.8-10.2); CREATININE FOR GFR 1.15 MG/DL (0.55-1.02)
[2016-12-15] MEDS: PANTOPRAZOLE 40MG TAB (PROTONIX) PO SCH (08:32)
[2016-12-15] MEDS: LOSARTAN 50 MG TAB PO SCH (08:34)
[2016-12-15] MEDS: POTASSIUM CHLORIDE 10 MEQ SR TABLET PO SCH (08:34)
[2016-12-15] MEDS: LABETALOL 100 MG TAB PO SCH ×2 (08:34→20:12)
[2016-12-15] MEDS: APIXABAN 5 MG TAB (ELIQUIS) PO SCH ×2 (08:34→20:11)
[2016-12-15] MEDS: amLODIPine 10 MG TAB PO SCH (08:34)
[2016-12-15] MEDS: POTASSIUM CITRATE 1080 MG (10MEQ) TAB PO SCH (08:34)
[2016-12-15] MEDS: hydroCHLOROthiazide 12.5 MG CAPSULE PO SCH (08:34)
[2016-12-15] MEDS: BRINZOLAMIDE 1 % OPHTH SUSP (AZOPT) 10ML OD SCH ×3 (08:35→20:11)
[2016-12-15] MEDS: TIMOLOL MALEATE 0.5% OPHTH SOLN 5 ML OU SCH (08:35)
[2016-12-15] MEDS: DOCUSATE SODIUM 100 MG CAP PO SCH ×2 (08:35→20:11)
[2016-12-15 14:00] VITALS: BP 143/63
[2016-12-15 20:00] VITALS: BP 145/65
[2016-12-15] MEDS: ATORVASTATIN 20 MG TAB PO SCH (20:11)
[2016-12-15] MEDS: SENNA 8.6 MG TAB (SENOKOT) PO SCH (20:11)
[2016-12-15] MEDS: LATANOPROST 0.005% OPHTH SOLN 2.5 ML OU SCH (20:12)
[2016-12-16] MEDS: **hydrALAZINE HCL** 25 MG TAB PO SCH ×5 (00:19→23:57)
[2016-12-16] MEDS: LEVOTHYROXINE 0.05 MG TAB (50 MCG) PO SCH (05:49)
[2016-12-16 06:00] VITALS: BP 146/64
[2016-12-16] MEDS: APIXABAN 5 MG TAB (ELIQUIS) PO SCH ×2 (08:18→21:53)
[2016-12-16] MEDS: hydroCHLOROthiazide 12.5 MG CAPSULE PO SCH (08:18)
[2016-12-16] MEDS: amLODIPine 10 MG TAB PO SCH (08:18)
[2016-12-16] MEDS: POTASSIUM CHLORIDE 10 MEQ SR TABLET PO SCH (08:18)
[2016-12-16] MEDS: PANTOPRAZOLE 40MG TAB (PROTONIX) PO SCH (08:18)
[2016-12-16] MEDS: DOCUSATE SODIUM 100 MG CAP PO SCH ×2 (08:18→21:53)
[2016-12-16] MEDS: LOSARTAN 50 MG TAB PO SCH (08:19)
[2016-12-16] MEDS: POTASSIUM CITRATE 1080 MG (10MEQ) TAB PO SCH (08:20)
[2016-12-16] MEDS: BRINZOLAMIDE 1 % OPHTH SUSP (AZOPT) 10ML OD SCH ×3 (08:20→21:53)
[2016-12-16] MEDS: LABETALOL 100 MG TAB PO SCH ×2 (08:20→21:53)
[2016-12-16] MEDS: TIMOLOL MALEATE 0.5% OPHTH SOLN 5 ML OU SCH (08:20)
[2016-12-16 12:00] VITALS: BP 139/62
[2016-12-16 14:00] VITALS: BP 132/60
--- NOTE | 2016-12-16 16:00 | IPNPDOC ---
Design Manager Progress Note DATE OF SERVICE: DATE OF ADMISSION: Dec 01, 2016 at 15:08 INPATIENT REHABILITATION ADMISSION DAY: #[15] HISTORY OF PRESENT ILLNESS: Patient is a 76-year-old right hand dominant woman with a history of paroxysmal atrial fibrillation status post cardioversion on aspirin who was admitted to [facility] on 11/20/16 by her primary care physician with hypertension urgency. She had presented to her PCP due to persistently elevated blood pressure. Per the daughter she had also had an episode of lightheadedness the night before. Patient was provided with clonidine and labetalol in the office and sent to the emergency room. While at the hospital, patient had an episode of garbled speech and facial droop for which CT head was done and showed small left subarachnoid hemorrhage. The patient was transferred to [facility] were higher level of care. She was admitted to the neuro ICU service. She continued with episodic garbled speech. EEG was done without evidence of seizures. She began experiencing aphasia for which CT was done which was unchanged. MRA was also done and reportedly normal. After the MRA she began to develop right-sided weakness in addition to her aphasia. MRI of the [place] with brain was done and showed left MCA infarct. CT perfusion study was attempted after intubating the patient and premedicating her for her allergy. Patient also developed right lower extremity DVT during her [facility] on hospital stay. She was started on eliquis 5 mg twice a day. Hospital stay was also notable for difficulty controlling her blood pressure. She was discharged on 5 antihypertensive medications. She was also reportedly in urinary retention for which a Victor catheter was placed on 11/23/2016. Of note renal Doppler was done and negative for renal artery status stenosis, but technically difficult study. Due to significant decline in the patients baseline functional status and need for continued medical care, recommendation was for acute rehabilitation. On 2016 the patient was deemed stable for discharge to [facility] inpatient rehabilitation unit. PAST MEDICAL HISTORY: Hypertension Hypothyroidism Paroxysmal atrial fibrillation s/p cardioversion PAST SURGICAL HISTORY: Tonsillectomy many years ago Cardioversion many years ago. ALLERGIES: Contrast, shellfish, iodine MEDICATIONS ON ADMISSION: Reviewed, see below. SUBJECTIVE: [76-year-old white female with right hemiparesis saying up in cardiac chair wrapped in a blanket feeling cold but otherwise without complaint E98 pain fever chills or bladder dysfunction or pain. Patient reports therapy going well she is currently being visited by her ] VITAL SIGNS: See below. PHYSICAL EXAMINATION: GENERAL: Somewhat overweight elderly white female who is alert and well oriented. She appears cold as wrapped in a blanket. HEENT: Normocephalic/atraumatic pupils equal round extraocular ocular motions intact patient wearing her glasses. CARDIOVASCULAR: Auscultation shows a regular rate and rhythm with normal S1-S2 and 2 for bilateral radial pulses with fair capillary refill. LUNGS: All rodriguez are clear to auscultation. ABDOMEN: Mildly obese but benign and nontender. NEUROLOGICAL: [id number] right hemiparesis supporting right shoulder with sling and no tenderness to touch in the right upper extremity. Some aphasia noted. LABORATORY DATA: Reviewed, see below. ASSESSMENT AND PLAN: 1. 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 We will continue to evaluate home versus nursing home for discharge]. 2. Anemia: Mild and stable. 3. Chronic kidney disease: Mild and stable at this time. INTERDISCIPLINARY CARE AND DISCHARGE PLANNIN. [Rehabilitation of both left CVA with right hemiparesis and aphasia: Patient progressing with therapy currently requiring some support for her right upper extremity. We'll continue to assess discharge options. Estimated length of stay approximately 6 more days]. 2. Chronic kidney disease: We'll continue watch but will also consult hospitalist stella pain and medical management of this pleasant lady. 3. Mild anemia: We'll continue to watch a periodic basis currently blood pressure is mildly elevated and anemia appears to be stable. Vital Signs Vital Sign - Last 24 Hours 12/15/16 12/15/16 12/15/16 12/15/16 18:02 20:00 20:12 20:30 Temp 98.2 Pulse 70 70 Resp 18 B/P 167/71 145/65 145/65 Pulse Ox 97 O2 Delivery Room Air Room Air 12/16/16 12/16/16 12/16/16 12/16/16 00:19 05:49 06:00 08:18 Temp 98.5 Pulse 80 80 Resp 18 B/P 148/66 146/64 146/64 146/64 Pulse Ox 92 O2 Delivery Room Air 12/16/16 12/16/16 12/16/16 12/16/16 08:19 08:20 09:00 12:00 Pulse 80 70 B/P 146/64 146/64 139/62 O2 Delivery Room Air 12/16/16 12/16/16 12:34 14:00 Temp 98.4 Pulse 73 Resp 18 B/P 139/62 132/60 Pulse Ox 97 O2 Delivery Room Air Allergies Allergies: Coded Allergies: Iodine (Verified Allergy, Unknown, 12/01/16) Salicylates (Verified Allergy, Unknown, 12/01/16) Shellfish Allergy (Verified Allergy, Unknown, 12/01/16) Current Medications Current Medications Current Medications Acetaminophen (Tylenol Tab) 650 mg Q4HP PRN PO MILD PAIN (PS 1-4); Start at 14:30; Stop 12/31/16 at 14:29 Amlodipine Besylate (Norvasc) 10 mg DAILY PO Last administered on 12/16/16 08: 18; Start 12/02/16 at 09:00; Stop 01/01/17 at 08:59 Apixaban (Eliquis) 5 mg BID PO Last administered on 12/16/16 08:18; Start at 21:00; Stop 12/22/16 at 20:59 Atorvastatin Calcium (Lipitor) 80 mg QHS PO Last administered on 12/15/16 20: 11; Start 12/01/16 at 21:00; Stop 12/31/16 at 20:59 Brinzolamide (Azopt) 1 drop TID OD Last administered on 12/16/16 08:20; Start 12/01/16 at 16:00; Stop 12/31/16 at 15:59 Clonidine HCl (Catapres) 0.2 mg TID PO Last administered on 12/02/16 08:51; Start 12/01/16 at 16:00; Stop 12/02/16 at 09:31; Status DC Clonidine HCl (Catapres) 0.3 mg Q8H PO Last administered on 12/14/16 05:01; Start 12/10/16 at 22:00; Stop 12/14/16 at 06:50; Status DC Clonidine HCl 0.2 mg 0.2 mg Q6H PO Last administered on 12/10/16 12:21; Start 12/02/16 at 12:00; Stop 12/10/16 at 14:31; Status DC Docusate Sodium (Colace) 100 mg BID PO Last administered on 12/16/16 08:18; Start 12/01/16 at 21:00; Stop 12/31/16 at 20:59 Home Med (Med Rec Complete!) ASDIRECTED XX ; Start 12/01/16 at 18:00; Stop at 18:00; Status DC Hydralazine HCl (Apresoline) 25 mg Q6H PO Last administered on 12/16/16 12:34 ; Start 12/14/16 at 12:00; Stop 01/13/17 at 11:59 Hydrochlorothiazide (Hydrodiuril) 12.5 mg DAILY PO Last administered on 08:18; Start 12/12/16 at 09:00; Stop 01/11/17 at 08:59 Hydrochlorothiazide (Hydrodiuril) 25 mg DAILY PO Last administered on 09:24; Start 12/02/16 at 09:00; Stop 12/03/16 at 11:46; Status DC Labetalol HCl (Normodyne, Trandate) 300 mg BID PO Last administered on 08:20; Start 12/05/16 at 21:00; Stop 01/04/17 at 20:59 Labetalol HCl (Normodyne, Trandate) 400 mg BID PO Last administered on 21:38; Start 12/01/16 at 21:00; Stop 12/05/16 at 09:28; Status DC Latanoprost (Xalatan 0.005% Op Soln) 1 drop QHS OU Last administered on 20:12; Start 12/01/16 at 21:00; Stop 12/31/16 at 20:59 Levothyroxine Sodium (Synthroid) 0.05 mg DAILY@06 PO Last administered on 05:49; Start 12/02/16 at 06:00; Stop 01/01/17 at 05:59 Losartan Potassium (Cozaar) 100 mg DAILY PO Last administered on 12/16/16 08: 19; Start 12/02/16 at 09:00; Stop 01/01/17 at 08:59 Magnesium Gluconate (Magnesium Gluconate) 500 mg BID PO Last administered on 09:09; Start 12/01/16 at 21:00; Stop 12/05/16 at 09:36; Status DC Magnesium Hydroxide (Milk Of Magnesia) 30 ml DAILYPRN PRN PO CONSTIPATION Last administered on 12/12/16 15:55; Start 12/01/16 at 14:30; Stop 12/31/16 at 14:29 Miscellaneous (Unresolved Clarification Entry) SEE LABEL COMMENTS UNRESOLVED XX ; Start 12/01/16 at 00:01; Stop 12/01/16 at 17:54; Status DC Pantoprazole Sodium (Protonix) 40 mg DAILY PO Last administered on 12/16/16 08 :18; Start 12/01/16 at 09:00; Stop 12/31/16 at 08:59 Polyethylene Glycol (Miralax) 1 pkt DAILYPRN PRN PO CONSTIPATION; Start at 14:30; Stop 12/31/16 at 14:29 Potassium Chloride (Micro-K Extencaps) 10 meq DAILY PO Last administered on 09:22; Start 12/02/16 at 09:00; Stop 12/03/16 at 12:00; Status DC Potassium Chloride (Micro-K Extencaps) 10 meq DAILY PO Last administered on 08:18; Start 12/12/16 at 09:00; Stop 01/11/17 at 08:59 Potassium Citrate (Urocit-K) 1,080 mg DAILY@08 PO Last administered on 08:20; Start 12/02/16 at 08:00; Stop 01/01/17 at 07:59 Senna (Senokot) 1 tab QHS PO Last administered on 12/15/16 20:11; Start at 21:00; Stop 12/31/16 at 20:59 Sodium Chloride (Nacl 0.9%) 1,000 ml @ 50 mls/hr Q20H IV Last administered on 12/06/16 00:20; Start 12/04/16 at 09:15; Stop 12/06/16 at 10:45; Status DC Timolol Maleate (Timoptic 0.5% Ophth Janine) 1 drop DAILY OU Last administered on 12/16/16t 08:20; Start 12/02/16 at 09:00; Stop 01/01/17 at 08:59 MONA HASSAN MD Dec 16, 2016 16:00
[2016-12-16 18:00] VITALS: BP 148/70
[2016-12-16 20:00] VITALS: BP 159/71
[2016-12-16] MEDS: SENNA 8.6 MG TAB (SENOKOT) PO SCH (21:53)
[2016-12-16] MEDS: ATORVASTATIN 20 MG TAB PO SCH (21:53)
[2016-12-16] MEDS: LATANOPROST 0.005% OPHTH SOLN 2.5 ML OU SCH (21:53)
[2016-12-16] MEDS: ACETAMINOPHEN TAB 650MG DOSE (2X325MG) PO PRN (23:57)
[2016-12-17] VITALS: BP_SYST 164; BP_SYST 169; BP_DIAS 70; BP_DIAS 72
[2016-12-17 01:26] LABS: BASO % 0.6 % (0.0-1.0); EOS # 0.1 K/mm3 (0.0-0.50); EOS % 1.9 % (0.0-3.0); LARGE UNSTAINED CELL # 0.2 K/mm3 (0.0-0.4); LARGE UNSTAINED CELL % 2.9 % (0.0-4.0); LYMPH # 0.8 K/mm3 (1.5-4.5); LYMPH % 14.6 % (24.0-44.0); MEAN CORPUSCULAR HEMOGLOBIN 29.3 pg (27.0-33.0); MEAN CORPUSCULAR HGB CONC 33.8 g/dl (32.0-36.5); MEAN CORPUSCULAR VOLUME 86.8 fl (80.0-96.0); MONO # 0.4 K/mm3 (0.0-0.8); MONO % 7.5 % (0.0-5.0); NEUTROPHILS # 3.7 K/mm3 (1.8-7.7); NEUTROPHILS % 72.4 % (36.0-66.0); PLATELET COUNT, AUTOMATED 186 k/mm3 (150-450); RED CELL DISTRIBUTION WIDTH 14.7 % (11.5-14.5); WHITE BLOOD COUNT 5.1 K/mm3 (4.0-10.0)
[2016-12-17 01:46] LABS: CALCIUM LEVEL 8.9 MG/DL (8.8-10.2); CREATININE FOR GFR 1.55 MG/DL (0.55-1.02); GLOMERULAR FILTRATION RATE 34.7 (>39); POTASSIUM SERUM 3.9 MEQ/L (3.5-5.1)
[2016-12-17] MEDS: **hydrALAZINE HCL** 25 MG TAB PO SCH ×3 (05:40→18:23)
[2016-12-17] MEDS: LEVOTHYROXINE 0.05 MG TAB (50 MCG) PO SCH (05:40)
[2016-12-17 06:00] VITALS: BP 173/71
--- NOTE | 2016-12-17 08:09 | REP ---
Clinical: Fever. Comparison: None. Findings: Left lower lobe atelectasis cannot be excluded. Mediastinum and cardiac silhouette normal for portable technique. No further consolidation, effusion, or pneumothorax. Skeletal structures demonstrate age-related changes. Impression: Cannot exclude left lower lobe atelectasis. Signed by Edgar Kelsey MD 12/17/2016 08:01 A
[2016-12-17] MEDS: PANTOPRAZOLE 40MG TAB (PROTONIX) PO SCH (09:29)
[2016-12-17] MEDS: amLODIPine 10 MG TAB PO SCH (09:30)
[2016-12-17] MEDS: POTASSIUM CITRATE 1080 MG (10MEQ) TAB PO SCH (09:30)
[2016-12-17] MEDS: LOSARTAN 50 MG TAB PO SCH (09:30)
[2016-12-17] MEDS: DOCUSATE SODIUM 100 MG CAP PO SCH ×2 (09:30→21:56)
[2016-12-17] MEDS: hydroCHLOROthiazide 12.5 MG CAPSULE PO SCH (09:30)
[2016-12-17] MEDS: APIXABAN 5 MG TAB (ELIQUIS) PO SCH ×2 (09:31→21:57)
[2016-12-17] MEDS: LABETALOL 100 MG TAB PO SCH ×2 (09:31→21:57)
[2016-12-17] MEDS: POTASSIUM CHLORIDE 10 MEQ SR TABLET PO SCH (09:31)
[2016-12-17] MEDS: TIMOLOL MALEATE 0.5% OPHTH SOLN 5 ML OU SCH (09:32)
[2016-12-17] MEDS: BRINZOLAMIDE 1 % OPHTH SUSP (AZOPT) 10ML OD SCH ×3 (09:32→21:58)
--- NOTE | 2016-12-17 11:33 | CR ---
DATE: 12/17/2016 TIME PATIENT WAS SEEN: Was at midnight. Patient was paged due to elevated temperature around midnight, which temperature was 102.7; however, according to our nursing staff, the patient did not describe any discomfort and she does not talk much at baseline. Reviewing patient's chart, she is a 76-year-old right hand dominant woman with a history of paroxysmal atrial fibrillation status post cardioversion on aspirin admitted to [facility] on 11/20/2016 due to hypertensive urgency; and while she was here, she was found to have a left cerebrovascular accident (CVA) with right-sided hemiparesis and aphasia, and she is undergoing for rehabilitation. In addition, she also has some anemia and chronic kidney disease. While interviewing patient, she denies any discomfort anywhere; however, physical examination shows that her skin was warm. She does not have a murmur difficult to auscultation due to body habitus; however, it was not a rapid ventricular rate. At this point, a urinalysis and urine culture were ordered. Urinalysis was negative. Urine culture and blood culture are pending. In addition, chest x-ray has been ordered. Preliminary result did not show any acute findings. At this point, will continue to monitor patient. Patient also does not have a white count. Will start patient on antibiotics if an infectious source is identified. At this point, etiology is unclear. Patient has been discussed with attending doctor, Dr. Addison. My preceptor for this patient encounter was Dr. Addison. The preceptor was physically present in the building during the encounter and was fully available. As needed, all aspects of the patient interview, examination, medical decision making process, and medical care plan development were reviewed and approved by the preceptor. The preceptor is aware and concurs with the plan as stated in the body of this note and will attest to such by his/her cosignature. DARLEEN
--- NOTE | 2016-12-17 11:58 | IPNPDOC ---
Subjective Date Seen The patient was seen on 12/17/16. Subjective Chief Complaint/HPI The patient is a 76-year-old female admitted with a reason for visit of Cva Onset 11/21/16. Events since last encounter Pt with expressive aphasia but denies SOB. cough, cp, abdominal pain, dysuria. Constitutional: Denies: Chills, Fever, Night Sweats ENT: Denies: Dysphagia, Ear Pain, Head Aches Pulmonary: Denies: Cough, Dyspnea Cardiovascular: Denies: Chest Pain, Lt Headedness, Orthopnea, Palpitations, Paroxysmal Noc. Dyspnea Gastrointestinal: Denies: Abdominal Pain, Constipation, Diarrhea, Nausea, Vomiting Genitourinary: Denies: Dysuria, Frequency, Incontinence, Retention Objective Physical Examination General Exam: Positive: Alert Eye Exam: Positive: PERRLA ENT Exam: Positive: Atraumatic Chest Exam: Positive: Clear to auscultation, Normal air movement Heart Exam: Positive: Normal S1, Normal S2, Rate Normal, Regular Rhythm, Negative: Murmurs, Rubs Abdomen Exam: Positive: Normal bowel sounds, Soft, Negative: Hepatospenomegaly, Tenderness Skin Exam: Positive: Nl turgor and temperature, Negative: Breakdown, Rash Neuro Exam: Positive: Other (expressive aphasia. Rt hemiparesis. ) Assessment /Plan Problems (1) Fever Status: Acute Problem Text: * Pt with T max 102.7 * BC x 2 pending * UC pending * CXR reviewed with Dr Bass. * CBC with no leukocytosis. * Pt denies any symptoms. * CRP pending. * Discussed with Dr Bass, continue to monitor results of labs, prior to treatment with antibiotic. (2) CVA (cerebral vascular accident) Status: Acute Problem Text: * Rehab as per ARU * PT/OT/ST * Eliquis (3) SAH (subarachnoid hemorrhage) Status: Acute (4) Urinary retention Status: Chronic (5) HTN (hypertension) Status: Chronic (6) Hypothyroid Status: Chronic (7) DVT (deep venous thrombosis) Status: Acute Problem Text: * H/O Rt LE DVT * Pt on Eliquis Plan/VTE VTE Prophylaxis Ordered?: Yes (pt on Eliquis) VS, I&O, 24H, Fishbone Vital Signs/I&O Vital Signs Date Time Temp Pulse Resp B/P Pulse Ox O2 Delivery O2 Flow Rate FiO2 12/17/16 09:31 70 150/66 12/17/16 09:00 Room Air 12/17/16 06:00 99.6 18 95 I&O- Last 24 Hours up to 6 AM 12/17/16 06:00 Intake Total 1200 ml Output Total 1150 ml Balance 50 ml Laboratory Data 24H LABS Laboratory Tests 2 12/17/16 01:03: Anion Gap 7L, White Blood Count 5.1, Red Blood Count 3.58L, Hemoglobin 10.5L, Hematocrit 31.1L, Mean Corpuscular Volume 86.8, Mean Corpuscular Hemoglobin 29.3 , Mean Corpuscular Hemoglobin Concent 33.8, Red Cell Distribution Width 14.7H, Platelet Count 186, Neutrophils (%) (Auto) 72.4H, Lymphocytes (%) (Auto) 14.6L, Monocytes (%) (Auto) 7.5H, Eosinophils (%) (Auto) 1.9, Basophils (%) (Auto) 0.6 , Neutrophils # (Auto) 3.7, Lymphocytes # (Auto) 0.8L, Monocytes # (Auto) 0.4, Eosinophils # (Auto) 0.1, Basophils # (Auto) 0.0, Blood Urea Nitrogen 41H, Creatinine 1.55H, Sodium Level 140, Potassium Level 3.9, Chloride Level 105, Carbon Dioxide Level 28, Calcium Level 8.9, Glomerular Filtration Rate 34.7L, Lactic Acid Level 1.3, Large Unclassified Cells # 0.2, Large Unclassified Cells % 2.9 12/17/16 02:15: Urine Amorphous Sediment , Urine Appearance HAZY, Urine Color YELLOW, Urine pH 5.0, Urine Specific Rosine 1.015, Urine Protein NEGATIVE, Urine Glucose (UA) NEGATIVE, Urine Ketones NEGATIVE, Urine Urobilinogen 0.2, Urine Bilirubin NEGATIVE, Urine Leukocyte Esterase TRACEH, Urine Bacteria (Auto) NEGATIVE, Urine Blood NEGATIVE, Urine Calcium Carbonate Cryst(Auto) , Urine Calcium Oxalate Cryst (Auto) , Urine Calcium Phosphate Laura (Auto) , Urine Cellular Casts , Urine Cystine Crystals , Urine Granular Casts (Auto) , Urine Hyaline Casts (Auto) 1, Urine Leucine Crystals , Urine Mucus (Auto) SMALL, Urine Nitrite NEGATIVE, Urine Oval Fat Bodies (Auto) , Urine RBC (Auto) 2, Urine Renal Epithelial Cells , Urine Sperm (Auto) , Urine Squamous Epithelial Cells 4 , Urine Transitional Epithelial Cells , Urine Trichomonas (Auto) , Urine Triple Phosphate Cryst (Auto) , Urine Tyrosine Crystals , Urine Uric Acid Crystals ( Auto) , Urine WBC (Auto) 6H, Urine Waxy Casts (Auto) , Urine Yeast-Like Cells ( Auto) CBC/BMP Laboratory Tests 12/17/16 01:03 Calcium Level 8.9, Red Blood Count 3.58 L, Mean Corpuscular Volume 86.8, Mean Corpuscular Hemoglobin 29.3, Mean Corpuscular Hemoglobin Concent 33.8, Red Cell Distribution Width 14.7 H, Neutrophils (%) (Auto) 72.4 H, Lymphocytes (%) (Auto ) 14.6 L, Monocytes (%) (Auto) 7.5 H, Eosinophils (%) (Auto) 1.9, Basophils (%) (Auto) 0.6, Neutrophils # (Auto) 3.7, Lymphocytes # (Auto) 0.8 L, Monocytes # ( Auto) 0.4, Eosinophils # (Auto) 0.1, Basophils # (Auto) 0.0 Microbiology Microbiology 12/17/16 Blood Culture, Received Pending 12/17/16 Blood Culture, Received Pending 12/17/16 Urine Culture, Received Pending Patricia Randolph Dec 17, 2016 11:58
[2016-12-17 14:00] VITALS: BP 142/67
[2016-12-17] MEDS: ISOSORBIDE DIN. (ISORDIL) 30 MG TAB PO SCH ×2 (16:22→21:57)
[2016-12-17] MEDS: ACETAMINOPHEN TAB 650MG DOSE (2X325MG) PO PRN (16:58)
--- NOTE | 2016-12-17 17:01 | IPNPDOC ---
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 ALLERGIES: See Below MEDICATIONS ON ADMISSION: Reviewed, see below. OBJECTIVE: VITAL SIGNS: Please see below. PHYSICAL EXAMINATION: GENERAL: Short overweight elderly white female sitting up in a chair with right upper extremity sling and therapy tape across the anterior lateral right shoulder for support. Patient is alert, pleasant and cooperates on those activities she can anticipate but has some problems with purely verbal instructions. HEENT: Normocephalic atraumatic with mild right facial droop. CARDIOVASCULAR: Regular rate and rhythm with normal S1 and S2 and 2 for bilateral radial pulses. LUNGS: All rodriguez clear to auscultation. ABDOMEN: Obese nontender with bowel sounds present throughout. NEUROLOGICAL: See above. LABORATORY DATA: Reviewed. Please see below. MICROBIOLOGY: Please see below. DVT prophylaxis ordered?: Yes ASSESSMENT AND PLAN: 1. Left cerebrovascular accident: See patient/family team conference note below. 2. Temperature spike: Patient with temperature of 102.7 last night seen by hospitalists. Patient with normal white blood cell count on CBC, UA inconsistent with infection, but chest x-ray of poor to fair quality as it was a portable patient was not seen up straight for not show any lesion but could not rule out left lower quadrant atelectasis. Temperature has declined into the 99 range and patient denies fever chills and other symptoms but communication is questionable. I have ordered respiratory therapy to begin incentive spirometry as most likely source of the temperature spike was atelectasis. 3. Hypertension: Patient continues to have a pattern of air mittens spikes a systolic blood pressure into the 170 range though most of the time systolic blood pressure tends to be in the 140s to low 150s. Hospitalists will proceed with review of her blood pressure. In light of her CVA we tend to look for patient to have a mild elevation in systolic blood pressure not wishing to go over 150 Edgar as further elevation of blood pressure interferes with brain healing just as low systolic blood pressure interfere with brain healing by reducing perfusion to the marginals zones. PATIENT/FAMILY INTERDISCIPLINARY CARE AND DISCHARGE PLANNING: Feeding was held today with patient's daughter as family elected not to have the patient there due to her communication problems, but patient was aware from the family that this meeting was to be held and his report to supported not coming to participate. The rehabilitation team was represented by PT and OT speech therapy case management and myself as physician component. OT notes progress in transfers and min assist in both direction and increasing self awareness in dressing. Patient is initiating some elements of dressing that are appropriate. Patient continues to require assistance for hygiene and lower extremity dressing was doing fairly well and upper extremity dressing. PT patient now using a ta-height wheelchair for self mobility of greater than 100 feet with only cueing required however this is necessary for safety. Patient has contact guard assist on bed to chair to bed transfers. In the para low bars patient is noted to be total assist in ambulation but is now showing trace right hip flexor and extensor motion which is some improvement. Speech-language pathology reports that patient is now more where she is okay most of the time on yes no answers that sometimes will get a cockup going back and forth between saying yes and say no to the same question as she is trying to fully understand and comprehend the question being asked in what she wants to do. She is also noted to be imitating speech and other taking cueing visually for activity better as well as more automatic speech is present. The patient's daughter described recently the patient doing fairly well with automatic speech to give some direction and even to talk on the phone and especially to SEND the daughter home when the patient's boyfriend was visiting and patient wanted time alone with her friend. In discussions with patient daughter the patient's home is on one level twos steps to enter the home by the back but door which sound to be 28-30 inches and most rooms which will interfere with using the ta-height wheelchair. Overall the patient continues to make progress and is likely to continue to do so with further time and training, though returned to home independently is questionable. However patient is able to obtain supervisory to modified independence and most activity family and community support give her reasonable chance to return to home. We will go ahead and proceed with custodial facility search for this patient to continue her therapy. TIME SPENT: [75 minutes] minutes. Allergies Coded Allergies: Iodine (Verified Allergy, Unknown, 12/01/16) Salicylates (Verified Allergy, Unknown, 12/01/16) Shellfish Allergy (Verified Allergy, Unknown, 12/01/16) Vital Signs Vital Signs Date Time Temp Pulse Resp B/P Pulse Ox O2 Delivery O2 Flow Rate FiO2 12/17/16 16:22 142/67 12/17/16 14:00 100.8 74 18 95 Room Air Laboratory Data CBC/BMP Laboratory Tests 12/17/16 01:03 Calcium Level 8.9, Red Blood Count 3.58 L, Mean Corpuscular Volume 86.8, Mean Corpuscular Hemoglobin 29.3, Mean Corpuscular Hemoglobin Concent 33.8, Red Cell Distribution Width 14.7 H, Neutrophils (%) (Auto) 72.4 H, Lymphocytes (%) (Auto ) 14.6 L, Monocytes (%) (Auto) 7.5 H, Eosinophils (%) (Auto) 1.9, Basophils (%) (Auto) 0.6, Neutrophils # (Auto) 3.7, Lymphocytes # (Auto) 0.8 L, Monocytes # ( Auto) 0.4, Eosinophils # (Auto) 0.1, Basophils # (Auto) 0.0 Labs 24H Laboratory Tests 2 12/17/16 01:03: Anion Gap 7L, White Blood Count 5.1, Red Blood Count 3.58L, Hemoglobin 10.5L, Hematocrit 31.1L, Mean Corpuscular Volume 86.8, Mean Corpuscular Hemoglobin 29.3 , Mean Corpuscular Hemoglobin Concent 33.8, Red Cell Distribution Width 14.7H, Platelet Count 186, Neutrophils (%) (Auto) 72.4H, Lymphocytes (%) (Auto) 14.6L, Monocytes (%) (Auto) 7.5H, Eosinophils (%) (Auto) 1.9, Basophils (%) (Auto) 0.6 , Neutrophils # (Auto) 3.7, Lymphocytes # (Auto) 0.8L, Monocytes # (Auto) 0.4, Eosinophils # (Auto) 0.1, Basophils # (Auto) 0.0, C-Reactive Protein, Quantitative 1.98H, Blood Urea Nitrogen 41H, Creatinine 1.55H, Sodium Level 140 , Potassium Level 3.9, Chloride Level 105, Carbon Dioxide Level 28, Calcium Level 8.9, Glomerular Filtration Rate 34.7L, Lactic Acid Level 1.3, Large Unclassified Cells # 0.2, Large Unclassified Cells % 2.9 12/17/16 02:15: Urine Amorphous Sediment , Urine Appearance HAZY, Urine Color YELLOW, Urine pH 5.0, Urine Specific [place] 1.015, Urine Protein NEGATIVE, Urine Glucose (UA) NEGATIVE, Urine Ketones NEGATIVE, Urine Urobilinogen 0.2, Urine Bilirubin NEGATIVE, Urine Leukocyte Esterase TRACEH, Urine Bacteria (Auto) NEGATIVE, Urine Blood NEGATIVE, Urine Calcium Carbonate Cryst(Auto) , Urine Calcium Oxalate Cryst (Auto) , Urine Calcium Phosphate Laura (Auto) , Urine Cellular Casts , Urine Cystine Crystals , Urine Granular Casts (Auto) , Urine Hyaline Casts (Auto) 1, Urine Leucine Crystals , Urine Mucus (Auto) SMALL, Urine Nitrite NEGATIVE, Urine Oval Fat Bodies (Auto) , Urine RBC (Auto) 2, Urine Renal Epithelial Cells , Urine Sperm (Auto) , Urine Squamous Epithelial Cells 4 , Urine Transitional Epithelial Cells , Urine Trichomonas (Auto) , Urine Triple Phosphate Cryst (Auto) , Urine Tyrosine Crystals , Urine Uric Acid Crystals ( Auto) , Urine WBC (Auto) 6H, Urine Waxy Casts (Auto) , Urine Yeast-Like Cells ( Auto) Microbiology Microbiology 12/17/16 Blood Culture, Received Pending 12/17/16 Blood Culture, Received Pending 12/17/16 Urine Culture, Received Pending Current Medications Current Medications Current Medications Acetaminophen (Tylenol Tab) 650 mg Q4HP PRN PO MILD PAIN (PS 1-4) Last administered on 12/16/16 23:57; Start 12/01/16 at 14:30; Stop 12/31/16 at 14:29 Amlodipine Besylate (Norvasc) 10 mg DAILY PO Last administered on 12/17/16 09: 30; Start 12/02/16 at 09:00; Stop 01/01/17 at 08:59 Apixaban (Eliquis) 5 mg BID PO Last administered on 12/17/16 09:31; Start at 21:00; Stop 12/22/16 at 20:59 Atorvastatin Calcium (Lipitor) 80 mg QHS PO Last administered on 12/16/16 21: 53; Start 12/01/16 at 21:00; Stop 12/31/16 at 20:59 Brinzolamide (Azopt) 1 drop TID OD Last administered on 12/17/16 16:22; Start 12/01/16 at 16:00; Stop 12/31/16 at 15:59 Cefdinir (Omnicef) 300 mg BID PO ; Start 12/17/16 at 21:00; Stop 12/24/16 at 20: 59 Clonidine HCl (Catapres) 0.2 mg TID PO Last administered on 12/02/16 08:51; Start 12/01/16 at 16:00; Stop 12/02/16 at 09:31; Status DC Clonidine HCl (Catapres) 0.3 mg Q8H PO Last administered on 12/14/16 05:01; Start 12/10/16 at 22:00; Stop 12/14/16 at 06:50; Status DC Clonidine HCl 0.2 mg 0.2 mg Q6H PO Last administered on 12/10/16 12:21; Start 12/02/16 at 12:00; Stop 12/10/16 at 14:31; Status DC Docusate Sodium (Colace) 100 mg BID PO Last administered on 12/17/16 09:30; Start 12/01/16 at 21:00; Stop 12/31/16 at 20:59 Home Med (Med Rec Complete!) ASDIRECTED XX ; Start 12/01/16 at 18:00; Stop at 18:00; Status DC Hydralazine HCl (Apresoline) 25 mg Q6H PO Last administered on 12/17/16 12:51 ; Start 12/14/16 at 12:00; Stop 01/13/17 at 11:59 Hydrochlorothiazide (Hydrodiuril) 12.5 mg DAILY PO Last administered on 09:30; Start 12/12/16 at 09:00; Stop 12/17/16 at 15:43; Status DC Hydrochlorothiazide (Hydrodiuril) 25 mg DAILY PO Last administered on 09:24; Start 12/02/16 at 09:00; Stop 12/03/16 at 11:46; Status DC Isosorbide Dinitrate (Isordil) 30 mg Q8H PO Last administered on 12/17/16 16: 22; Start 12/17/16 at 14:00; Stop 01/16/17 at 13:59 Labetalol HCl (Normodyne, Trandate) 300 mg BID PO Last administered on 09:31; Start 12/05/16 at 21:00; Stop 01/04/17 at 20:59 Labetalol HCl (Normodyne, Trandate) 400 mg BID PO Last administered on 21:38; Start 12/01/16 at 21:00; Stop 12/05/16 at 09:28; Status DC Latanoprost (Xalatan 0.005% Op Soln) 1 drop QHS OU Last administered on 21:53; Start 12/01/16 at 21:00; Stop 12/31/16 at 20:59 Levothyroxine Sodium (Synthroid) 0.05 mg DAILY@06 PO Last administered on 05:40; Start 12/02/16 at 06:00; Stop 01/01/17 at 05:59 Losartan Potassium (Cozaar) 100 mg DAILY PO Last administered on 12/17/16 09: 30; Start 12/02/16 at 09:00; Stop 12/17/16 at 15:43; Status DC Magnesium Gluconate (Magnesium Gluconate) 500 mg BID PO Last administered on 09:09; Start 12/01/16 at 21:00; Stop 12/05/16 at 09:36; Status DC Magnesium Hydroxide (Milk Of Magnesia) 30 ml DAILYPRN PRN PO CONSTIPATION Last administered on 12/12/16 15:55; Start 12/01/16 at 14:30; Stop 12/31/16 at 14:29 Miscellaneous (Unresolved Clarification Entry) SEE LABEL COMMENTS UNRESOLVED XX ; Start 12/01/16 at 00:01; Stop 12/01/16 at 17:54; Status DC Pantoprazole Sodium (Protonix) 40 mg DAILY PO Last administered on 12/17/16 09 :29; Start 12/01/16 at 09:00; Stop 12/31/16 at 08:59 Polyethylene Glycol (Miralax) 1 pkt DAILYPRN PRN PO CONSTIPATION; Start at 14:30; Stop 12/31/16 at 14:29 Potassium Chloride (Micro-K Extencaps) 10 meq DAILY PO Last administered on 09:22; Start 12/02/16 at 09:00; Stop 12/03/16 at 12:00; Status DC Potassium Chloride (Micro-K Extencaps) 10 meq DAILY PO Last administered on 09:31; Start 12/12/16 at 09:00; Stop 01/11/17 at 08:59 Potassium Citrate (Urocit-K) 1,080 mg DAILY@08 PO Last administered on 09:30; Start 12/02/16 at 08:00; Stop 01/01/17 at 07:59 Senna (Senokot) 1 tab QHS PO Last administered on 12/16/16 21:53; Start at 21:00; Stop 12/31/16 at 20:59 Sodium Chloride (Nacl 0.9%) 1,000 ml @ 50 mls/hr Q20H IV Last administered on 12/06/16 00:20; Start 12/04/16 at 09:15; Stop 12/06/16 at 10:45; Status DC Timolol Maleate (Timoptic 0.5% Ophth Janine) 1 drop DAILY OU Last administered on 12/17/16 09:32; Start 12/02/16 at 09:00; Stop 01/01/17 at 08:59 MONA HASSAN MD Dec 17, 2016 17:01
[2016-12-17 21:53] VITALS: BP 162/62
[2016-12-17] MEDS: ATORVASTATIN 20 MG TAB PO SCH (21:56)
[2016-12-17] MEDS: CEFDINIR 300 MG CAP (OMNICEF) PO SCH (21:57)
[2016-12-17] MEDS: LATANOPROST 0.005% OPHTH SOLN 2.5 ML OU SCH (21:58)
[2016-12-17] MEDS: SENNA 8.6 MG TAB (SENOKOT) PO SCH (21:58)
[2016-12-18 06:00] VITALS: BP 158/62
[2016-12-18] MEDS: LEVOTHYROXINE 0.05 MG TAB (50 MCG) PO SCH (06:25)
[2016-12-18] MEDS: **hydrALAZINE HCL** 25 MG TAB PO SCH ×4 (06:25→18:11)
[2016-12-18] MEDS: ISOSORBIDE DIN. (ISORDIL) 30 MG TAB PO SCH ×3 (06:25→21:32)
[2016-12-18 08:25] LABS: ALBUMIN 2.8 GM/DL (3.2-5.2); ALBUMIN/GLOBULIN RATIO 1.08 (1.00-1.93); BILIRUBIN,TOTAL 0.4 MG/DL (0.2-1.0); CALCIUM LEVEL 8.6 MG/DL (8.8-10.2); CREATININE FOR GFR 1.35 MG/DL (0.55-1.02); GLOMERULAR FILTRATION RATE 40.7 (>39); MEAN CORPUSCULAR HEMOGLOBIN 29.2 pg (27.0-33.0); MEAN CORPUSCULAR HGB CONC 32.5 g/dl (32.0-36.5); MEAN CORPUSCULAR VOLUME 89.9 fl (80.0-96.0); POTASSIUM SERUM 3.8 MEQ/L (3.5-5.1); RED CELL DISTRIBUTION WIDTH 14.7 % (11.5-14.5); TOTAL PROTEIN 5.4 GM/DL (6.4-8.2); WHITE BLOOD COUNT 5.4 K/mm3 (4.0-10.0)
[2016-12-18] MEDS: DOCUSATE SODIUM 100 MG CAP PO SCH ×2 (08:41→21:31)
[2016-12-18] MEDS: PANTOPRAZOLE 40MG TAB (PROTONIX) PO SCH (08:41)
[2016-12-18] MEDS: POTASSIUM CITRATE 1080 MG (10MEQ) TAB PO SCH (08:41)
[2016-12-18] MEDS: APIXABAN 5 MG TAB (ELIQUIS) PO SCH ×2 (08:41→21:31)
[2016-12-18] MEDS: CEFDINIR 300 MG CAP (OMNICEF) PO SCH ×2 (08:42→21:32)
[2016-12-18] MEDS: POTASSIUM CHLORIDE 10 MEQ SR TABLET PO SCH (08:42)
[2016-12-18] MEDS: amLODIPine 10 MG TAB PO SCH (08:42)
[2016-12-18] MEDS: LABETALOL 100 MG TAB PO SCH ×2 (08:43→21:31)
[2016-12-18] MEDS: TIMOLOL MALEATE 0.5% OPHTH SOLN 5 ML OU SCH (08:43)
[2016-12-18] MEDS: BRINZOLAMIDE 1 % OPHTH SUSP (AZOPT) 10ML OD SCH ×3 (08:44→21:32)
[2016-12-18 14:00] VITALS: BP 164/72
--- NOTE | 2016-12-18 14:02 | IPNPDOC ---
Subjective Date Seen The patient was seen on 12/18/16. Subjective Chief Complaint/HPI The patient is a 76-year-old female admitted with a reason for visit of Cva Onset 11/21/16. Events since last encounter Pt with expressive aphasia. Objective Physical Examination General Exam: Positive: Alert Eye Exam: Positive: PERRLA ENT Exam: Positive: Atraumatic Chest Exam: Positive: Clear to auscultation, Normal air movement Heart Exam: Positive: Normal S1, Normal S2, Rate Normal, Regular Rhythm, Negative: Murmurs, Rubs Abdomen Exam: Positive: Normal bowel sounds, Soft, Negative: Hepatospenomegaly, Tenderness Skin Exam: Positive: Nl turgor and temperature, Negative: Breakdown, Rash Neuro Exam: Positive: Other (expressive aphasia. Rt hemiparesis. ) Assessment /Plan Problems (1) Fever Status: Acute Problem Text: * Pt with T max 102.7 * BC x 2 neg * UC neg * CXR with atalectasis. * CBC with no leukocytosis. * Pt denies any symptoms. * CRP 1.98. * Omnicef D2 * Cont to closely monitor. (2) CVA (cerebral vascular accident) Status: Chronic Problem Text: * Rehab as per ARU * PT/OT/ST * Eliquis (3) SAH (subarachnoid hemorrhage) Status: Chronic (4) Urinary retention Status: Chronic (5) HTN (hypertension) Status: Chronic Problem Text: * D/C HCTZ/ARB * Hydralazine/Isosorbide/Labetalol. (6) Hypothyroid Status: Chronic Problem Text: * supplement (7) DVT (deep venous thrombosis) Status: Acute Problem Text: * H/O Rt LE DVT * Pt on Eliquis Plan/VTE VTE Prophylaxis Ordered?: Yes (pt on Eliquis) VS, I&O, 24H, Fishbone Vital Signs/I&O Vital Signs Date Time Temp Pulse Resp B/P Pulse Ox O2 Delivery O2 Flow Rate FiO2 12/18/16 13:21 151/68 12/18/16 08:43 83 12/18/16 07:50 Room Air 12/18/16 06:00 100.3 18 92 I&O- Last 24 Hours up to 6 AM 12/18/16 06:00 Intake Total 600 ml Output Total 75 ml Balance 525 ml Laboratory Data 24H LABS Laboratory Tests 2 12/18/16 07:21: Blood Urea Nitrogen 38H, Creatinine 1.35H, Sodium Level 140, Potassium Level 3.8 , Chloride Level 105, Carbon Dioxide Level 28, Calcium Level 8.6L, Aspartate Amino Transf (AST/SGOT) 17, Alanine Aminotransferase (ALT/SGPT) 27, Alkaline Phosphatase 136H, Total Bilirubin 0.4, Total Protein 5.4L, Albumin 2.8L, Albumin /Globulin Ratio 1.08, Anion Gap 7L, Glomerular Filtration Rate 40.7 CBC/BMP Laboratory Tests 12/18/16 07:21 Calcium Level 8.6 L, Aspartate Amino Transf (AST/SGOT) 17, Alanine Aminotransferase (ALT/SGPT) 27, Alkaline Phosphatase 136 H, Total Bilirubin 0.4 , Total Protein 5.4 L, Albumin 2.8 L, Red Blood Count 3.39 L, Mean Corpuscular Volume 89.9, Mean Corpuscular Hemoglobin 29.2, Mean Corpuscular Hemoglobin Concent 32.5, Red Cell Distribution Width 14.7 H Microbiology Microbiology 12/17/16 Blood Culture - Preliminary, Resulted No growth after 24 hours . All specim... 12/17/16 Blood Culture - Preliminary, Resulted No growth after 24 hours . All specim... 12/17/16 Urine Culture - Final, Complete Patricia Randolph Dec 18, 2016 14:02
[2016-12-18] MEDS: ACETAMINOPHEN TAB 650MG DOSE (2X325MG) PO PRN (14:22)
--- NOTE | 2016-12-18 18:12 | IPNPDOC ---
Healthcare Sales Representative Progress Note DATE OF SERVICE: 12/18/2016 DATE OF ADMISSION: Dec 01, 2016 at 15:08 INPATIENT REHABILITATION ADMISSION DAY: #17 SUBJECTIVE: Patient is a 76-year-old white female with left CVA with right hemiparesis and nonfluent aphasia. Patient does not express any pain or other problem today. ALLERGIES: See Below MEDICATIONS ON ADMISSION: Reviewed, see below. OBJECTIVE: VITAL SIGNS: Please see below. PHYSICAL EXAMINATION: GENERAL: Short mildly overweight elderly white female in no acute distress sitting up in chair with sling on right upper extremity which has fairly dense paresis along with dense paresis right lower extremity and moderately severe nonfluent aphasia having difficulty with communication board. HEENT: Normocephalic with mild right facial droop. CARDIOVASCULAR: Regular rate and rhythm with normal S1-S2 with normal radial pulses LUNGS: Clear in all rodriguez auscultation . ABDOMEN: Mildly obese nontender with bowel sounds in all quadrants there are normal. NEUROLOGICAL: As noted above SKIN: Intact LABORATORY DATA: Reviewed. Please see below. MICROBIOLOGY: Please see below. IMAGING: No new studies. DVT prophylaxis ordered?: Yes ASSESSMENT AND PLAN: 1. Rehabilitation of left CVA with dense hemiparesis and moderately dense nonfluent aphasia more expressive than receptive. Patient making some progress in speech but overall doing better with mobility skills and ADLs and PT and OT respectively. 2. Fevers of unknown origin: These appear most likely of be secondary to some mild atelectasis so we'll go ahead and push sensitive spirometry and pulmonary hygiene as we are able however patient does have trouble with understanding concept and participating. Hospitalist is gone ahead and ordered some additional cultures and testing and we will see what this shows. TIME SPENT: Time spent today including chart review patient examination and team rounds greater than 30 minutes. Allergies Coded Allergies: Iodine (Verified Allergy, Unknown, 12/01/16) Salicylates (Verified Allergy, Unknown, 12/01/16) Shellfish Allergy (Verified Allergy, Unknown, 12/01/16) Vital Signs Vital Signs Date Time Temp Pulse Resp B/P Pulse Ox O2 Delivery O2 Flow Rate FiO2 12/18/16 14:00 102.0 83 18 164/72 92 Room Air Laboratory Data CBC/BMP Laboratory Tests 12/18/16 07:21 Calcium Level 8.6 L, Aspartate Amino Transf (AST/SGOT) 17, Alanine Aminotransferase (ALT/SGPT) 27, Alkaline Phosphatase 136 H, Total Bilirubin 0.4 , Total Protein 5.4 L, Albumin 2.8 L, Red Blood Count 3.39 L, Mean Corpuscular Volume 89.9, Mean Corpuscular Hemoglobin 29.2, Mean Corpuscular Hemoglobin Concent 32.5, Red Cell Distribution Width 14.7 H Labs 24H Laboratory Tests 2 12/18/16 07:21: Blood Urea Nitrogen 38H, Creatinine 1.35H, Sodium Level 140, Potassium Level 3.8 , Chloride Level 105, Carbon Dioxide Level 28, Calcium Level 8.6L, Aspartate Amino Transf (AST/SGOT) 17, Alanine Aminotransferase (ALT/SGPT) 27, Alkaline Phosphatase 136H, Total Bilirubin 0.4, Total Protein 5.4L, Albumin 2.8L, Albumin /Globulin Ratio 1.08, Anion Gap 7L, Glomerular Filtration Rate 40.7 Microbiology Microbiology 12/18/16 Blood Culture, Received Pending 12/18/16 Blood Culture, Received Pending 12/17/16 Blood Culture - Preliminary, Resulted No growth after 24 hours . All specim... 12/17/16 Blood Culture - Preliminary, Resulted No growth after 24 hours . All specim... 12/17/16 Urine Culture - Final, Complete Current Medications Current Medications Current Medications Acetaminophen (Tylenol Tab) 650 mg Q4HP PRN PO MILD PAIN OR FEVER Last administered on 12/18/16 14:22; Start 12/01/16 at 14:30; Stop 01/16/17 at 14:29 Amlodipine Besylate (Norvasc) 10 mg DAILY PO Last administered on 12/18/16 08: 42; Start 12/02/16 at 09:00; Stop 01/01/17 at 08:59 Apixaban (Eliquis) 5 mg BID PO Last administered on 12/18/16 08:41; Start at 21:00; Stop 12/22/16 at 20:59 Atorvastatin Calcium (Lipitor) 80 mg QHS PO Last administered on 12/17/16 21: 56; Start 12/01/16 at 21:00; Stop 12/31/16 at 20:59 Brinzolamide (Azopt) 1 drop TID OD Last administered on 12/18/16 16:07; Start 12/01/16 at 16:00; Stop 12/31/16 at 15:59 Cefdinir (Omnicef) 300 mg BID PO Last administered on 12/18/16 08:42; Start at 21:00; Stop 12/24/16 at 20:59 Clonidine HCl (Catapres) 0.2 mg TID PO Last administered on 12/02/16 08:51; Start 12/01/16 at 16:00; Stop 12/02/16 at 09:31; Status DC Clonidine HCl (Catapres) 0.3 mg Q8H PO Last administered on 12/14/16 05:01; Start 12/10/16 at 22:00; Stop 12/14/16 at 06:50; Status DC Clonidine HCl 0.2 mg 0.2 mg Q6H PO Last administered on 12/10/16 12:21; Start 12/02/16 at 12:00; Stop 12/10/16 at 14:31; Status DC Docusate Sodium (Colace) 100 mg BID PO Last administered on 12/18/16 08:41; Start 12/01/16 at 21:00; Stop 12/31/16 at 20:59 Home Med (Med Rec Complete!) ASDIRECTED XX ; Start 12/01/16 at 18:00; Stop at 18:00; Status DC Hydralazine HCl (Apresoline) 25 mg Q6H PO Last administered on 12/18/16 13:21 ; Start 12/14/16 at 12:00; Stop 01/13/17 at 11:59 Hydrochlorothiazide (Hydrodiuril) 12.5 mg DAILY PO Last administered on 09:30; Start 12/12/16 at 09:00; Stop 12/17/16 at 15:43; Status DC Hydrochlorothiazide (Hydrodiuril) 25 mg DAILY PO Last administered on 09:24; Start 12/02/16 at 09:00; Stop 12/03/16 at 11:46; Status DC Isosorbide Dinitrate (Isordil) 30 mg Q8H PO Last administered on 12/18/16 13: 21; Start 12/17/16 at 14:00; Stop 01/16/17 at 13:59 Labetalol HCl (Normodyne, Trandate) 300 mg BID PO Last administered on 08:43; Start 12/05/16 at 21:00; Stop 01/04/17 at 20:59 Labetalol HCl (Normodyne, Trandate) 400 mg BID PO Last administered on 21:38; Start 12/01/16 at 21:00; Stop 12/05/16 at 09:28; Status DC Latanoprost (Xalatan 0.005% Op Soln) 1 drop QHS OU Last administered on 21:58; Start 12/01/16 at 21:00; Stop 12/31/16 at 20:59 Levothyroxine Sodium (Synthroid) 0.05 mg DAILY@06 PO Last administered on 06:25; Start 12/02/16 at 06:00; Stop 01/01/17 at 05:59 Losartan Potassium (Cozaar) 100 mg DAILY PO Last administered on 12/17/16 09: 30; Start 12/02/16 at 09:00; Stop 12/17/16 at 15:43; Status DC Magnesium Gluconate (Magnesium Gluconate) 500 mg BID PO Last administered on 09:09; Start 12/01/16 at 21:00; Stop 12/05/16 at 09:36; Status DC Magnesium Hydroxide (Milk Of Magnesia) 30 ml DAILYPRN PRN PO CONSTIPATION Last administered on 12/12/16 15:55; Start 12/01/16 at 14:30; Stop 12/31/16 at 14:29 Miscellaneous (Unresolved Clarification Entry) SEE LABEL COMMENTS UNRESOLVED XX ; Start 12/01/16 at 00:01; Stop 12/01/16 at 17:54; Status DC Pantoprazole Sodium (Protonix) 40 mg DAILY PO Last administered on 12/18/16 08 :41; Start 12/01/16 at 09:00; Stop 12/31/16 at 08:59 Polyethylene Glycol (Miralax) 1 pkt DAILYPRN PRN PO CONSTIPATION; Start at 14:30; Stop 12/31/16 at 14:29 Potassium Chloride (Micro-K Extencaps) 10 meq DAILY PO Last administered on 09:22; Start 12/02/16 at 09:00; Stop 12/03/16 at 12:00; Status DC Potassium Chloride (Micro-K Extencaps) 10 meq DAILY PO Last administered on 08:42; Start 12/12/16 at 09:00; Stop 01/11/17 at 08:59 Potassium Citrate (Urocit-K) 1,080 mg DAILY@08 PO Last administered on 08:41; Start 12/02/16 at 08:00; Stop 01/01/17 at 07:59 Senna (Senokot) 1 tab QHS PO Last administered on 12/16/16 21:53; Start at 21:00; Stop 12/31/16 at 20:59 Sodium Chloride (Nacl 0.9%) 1,000 ml @ 50 mls/hr Q20H IV Last administered on 12/06/16 00:20; Start 12/04/16 at 09:15; Stop 12/06/16 at 10:45; Status DC Timolol Maleate (Timoptic 0.5% Ophth Janine) 1 drop DAILY OU Last administered on 12/18/16 08:43; Start 12/02/16 at 09:00; Stop 01/01/17 at 08:59 MONA HASSAN MD Dec 18, 2016 18:12
[2016-12-18] MEDS: SENNA 8.6 MG TAB (SENOKOT) PO SCH (21:31)
[2016-12-18] MEDS: ATORVASTATIN 20 MG TAB PO SCH (21:32)
[2016-12-18] MEDS: LATANOPROST 0.005% OPHTH SOLN 2.5 ML OU SCH (21:32)
[2016-12-18] MEDS ORDERED: VANCOMYCIN HCL 1,000 MG, VIAL MATE ADAPTER 1 EACH in D5W 250 ML IV ONE (23:15)
--- NOTE | 2016-12-19 00:13 | IPN ---
DATE: 12/18/2016 TIME: Around 11:30 p.m. SUBJECTIVE: The patient continues to have persistent fever and one set of blood culture preliminary shows positive for gram-positive cocci in pairs and clusters. The patient has been on empiric antibiotic Omnicef; the patient received a total of three doses of Omnicef. However, the patient's temperature has not been improving. I went to examine the patient. The patient is not very verbal, and she can barely follow commands. Per nursing staff, the patient still cannot walk. The staff did notice the patient started having more frequency of the cough. The sputum was whitish. The patient cannot answer whether she has any other associated symptoms. The patient has been lying in bed. She has not been very ambulatory. OBJECTIVE: VITAL SIGNS: Temperature is 100.1, pulse is 88, respirations 18, blood pressure is 147/75, pulse oximetry is 93% in room air. GENERAL: The patient is fatigued and no sign of acute distress. The patient is alert and awake, but the patient is nonverbal, unable to determine patient's orientation. HEENT: Normocephalic, atraumatic. Extraocular motor grossly intact. CARDIOVASCULAR: Tachycardia at the time of examination. Positive S1, S2. RESPIRATORY: The patient has a very poor respiratory effort, unable to take a deep breath. I am not able to determine whether the patient has crackles, but I do not feel there is significant air flow to the right side of the lung. No wheezes appreciated. ABDOMEN: Soft, nontender, nondistended. Bowel sounds present. EXTREMITIES: 2+ pitting edema bilaterally. The patient has a protective shoe on the right lower extremity. MUSCULOSKELETAL: I examined the patient's back and also major dependent areas, such as the elbow and the bilateral heel. I do not appreciate any ulcers. LABORATORY DATA: WBC is 5.4, hemoglobin 9.9, hematocrit 30.5, platelet count is 196. Sodium is 140, potassium 3.8, chloride is 105, carbon dioxide 28, BUN 38, creatinine is 1.35, GFR is 40.7, fasting glucose 120, calcium is 8.6, total bilirubin is 0.4, AST 17, ALT 27, alkaline phosphatase 136, total protein is 5.4, albumin is 2.8. ASSESSMENT AND PLAN: 1. Fever of unknown origin. The patient has been having a fever since 12/15/2016. Initially, a chest x-ray was performed on 12/17/2016 and the results show cannot exclude left lower lobe atelectasis. Incentive spirometry was given to the patient; however, the patient has not been able to use the equipment appropriately. The patient does not seem to understand/comprehend the importance. The patient continues to have a persistent fever. One set of blood culture, preliminary, shows gram positive cocci in clusters and pairs. A new set of blood cultures was ordered around 5:00 p.m. today. Will follow the result. And due to persistence of symptoms, we will switch the patient's antibiotics from Omnicef to intravenous (IV) vancomycin while waiting for the blood culture. Will follow with a new set of labs in a few hours. We will also obtain a cardiac echogram. Due to new respiratory findings, we will also obtain a CT of the chest. 2. Cerebrovascular accident. Patient has been admitted to a rehabilitation unit since 12/01/2016. The patient will continue with rehabilitation per the acute rehabilitation unit instructions. 3. History of paroxysmal atrial fibrillation, status post cardioversion. The patient is on Eliquis. The patient is not on cardiac telemetry. Will obtain an EKG for now. Per record, the patient's general heart rate is in the target range. The patient is on labetalol for rate control. 4. Hypothyroidism. On Synthroid. 5. Hypertension. The patient is on Norvasc, hydralazine, and labetalol. 6. Bilateral lower extremity swelling. Initially, we do not know if the patient has a history of congestive heart failure or not. The patient was taking hydralazine, probably for high blood pressure management. Today, during the examination, the patient did start to show some signs of fluid overload. We will follow with cardiac echogram. 7. History of urinary retention. 8. Anemia. Currently, the patient's hemoglobin and hematocrit remain stable. Will continue to monitor. 9. Chronic kidney disease. Continue to follow. 10. Deep vein thrombosis (DVT) prophylaxis. The patient is on Eliquis.
--- NOTE | 2016-12-19 00:50 | REPUSA ---
CT of the chest without contrast Clinical statement: cough. Technique: Multiple axial CT images were obtained with 5 mm cuts through the chest without administra tion of contrast. Coronal and sagittal reconstructions were also obtained. No comparison is available. Findings: There is no thoracic lymphadenopathy. The visualized portions of the thyroid gland is unrem arkable. There are no pericardial or pleural effusions. There is a 1.9 x 1.4 cm nodule in the left lo wer lobe. Adjacent linear interstitial infiltrate is noted as well. Patchy infiltrates seen in the hauser perior segment of the left lower lobe. Limited imaging of the upper abdomen does not demonstrate any acute abnormalities. There is a low attenuation lesion in the left lobe of the liver measuring 3.3 x 2.8 cm, likely a cyst. There are no suspicious osseous lesions. Impression: 1. Left lower lobe nodule measuring up to 1.9 cm. Biopsy should be considered if not previously perfo rmed. 2. Scattered infiltrate/atelectasis in the left lower lobe.
[2016-12-19] MEDS ORDERED: VANCOMYCIN HCL 500 MG in D5W MINI-BAG PLUS 100 ML IV ONE (01:00)
[2016-12-19] MEDS: **hydrALAZINE HCL** 25 MG TAB PO SCH ×4 (01:01→17:02)
[2016-12-19] MEDS: ISOSORBIDE DIN. (ISORDIL) 30 MG TAB PO SCH ×3 (05:28→21:23)
[2016-12-19] MEDS: ACETAMINOPHEN TAB 650MG DOSE (2X325MG) PO PRN ×2 (05:28→19:38)
[2016-12-19] MEDS: LEVOTHYROXINE 0.05 MG TAB (50 MCG) PO SCH (05:29)
[2016-12-19 06:00] VITALS: BP 152/62
[2016-12-19 07:33] LABS: BASO % 0.3 % (0.0-1.0); EOS % 0.8 % (0.0-3.0); LARGE UNSTAINED CELL # 0.1 K/mm3 (0.0-0.4); LYMPH # 0.6 K/mm3 (1.5-4.5); LYMPH % 10.9 % (24.0-44.0); MEAN CORPUSCULAR HEMOGLOBIN 29.3 pg (27.0-33.0); MEAN CORPUSCULAR HGB CONC 33.3 g/dl (32.0-36.5); MEAN CORPUSCULAR VOLUME 87.9 fl (80.0-96.0); MONO # 0.4 K/mm3 (0.0-0.8); MONO % 9.3 % (0.0-5.0); NEUTROPHILS # 3.4 K/mm3 (1.8-7.7); NEUTROPHILS % 76.7 % (36.0-66.0); PLATELET COUNT, AUTOMATED 174 k/mm3 (150-450); RED CELL DISTRIBUTION WIDTH 14.8 % (11.5-14.5); WHITE BLOOD COUNT 4.5 K/mm3 (4.0-10.0)
[2016-12-19 08:11] LABS: ALBUMIN 2.6 GM/DL (3.2-5.2); ALBUMIN/GLOBULIN RATIO 0.9 (1.00-1.93); BILIRUBIN,TOTAL 0.4 MG/DL (0.2-1.0); CALCIUM LEVEL 8.1 MG/DL (8.8-10.2); CREATININE FOR GFR 1.11 MG/DL (0.55-1.02); POTASSIUM SERUM 3.8 MEQ/L (3.5-5.1); TOTAL PROTEIN 5.5 GM/DL (6.4-8.2)
--- NOTE | 2016-12-19 08:37 | IPNPDOC ---
Subjective Date Seen The patient was seen on 12/19/16. Subjective Chief Complaint/HPI The patient is a 76-year-old female admitted with a reason for visit of Cva Onset 11/21/16. Events since last encounter Pt with expressive aphasia. History is limited. Main nursing concern is fever. Nursing states some cough. Does not seem to cough after eating or drinking. No GI symptoms, N/V, diarrhea. Pulmonary: Denies: Dyspnea Cardiovascular: Denies: Chest Pain, Paroxysmal Noc. Dyspnea Objective Physical Examination General Exam: Positive: Alert Eye Exam: Positive: PERRLA ENT Exam: Positive: Atraumatic Chest Exam: Positive: Clear to auscultation, Normal air movement Heart Exam: Positive: Normal S1, Normal S2, Rate Normal, Regular Rhythm, Negative: Murmurs, Rubs Abdomen Exam: Positive: Normal bowel sounds, Soft, Negative: Hepatospenomegaly, Tenderness Skin Exam: Positive: Nl turgor and temperature, Negative: Breakdown, Rash Neuro Exam: Positive: Other (expressive aphasia. Rt hemiparesis. ) Assessment /Plan Problems (1) Fever Status: Acute Problem Text: * Pt with T max 102. * 12/17 BC x 1 neg. x 1 Gram pos cocci pairs /clusters * 12/18 BC x 2 pending. * UC x 2 neg. * 12/18 UC pending. * CXR with atalectasis. * CT with pulm nodule. LLL atalectasis. * CBC with no leukocytosis. * Pt denies any symptoms, but hx is difficult. * CRP pending. * ESR pending. * Echo pending. * Pt changed to IV Vanco with Pharmacy dosing. po antibiotics d/cd. (2) CVA (cerebral vascular accident) Status: Acute Problem Text: * Rehab as per ARU * PT/OT/ST * Eliquis (3) SAH (subarachnoid hemorrhage) Status: Acute (4) Urinary retention Status: Chronic Problem Text: * repeat UC pending (5) HTN (hypertension) Status: Chronic Problem Text: * D/C HCTZ/ARB * Hydralazine/Isosorbide/Labetalol. (6) Hypothyroid Status: Chronic Problem Text: * supplement (7) DVT (deep venous thrombosis) Status: Acute Problem Text: * H/O Rt LE DVT * Pt on Eliquis (8) Anemia Status: Acute Problem Text: * Hgb trend downward. 9.1 * Check Fe studies, B12, folate * Stool OB * Monitor labs. (9) CKD (chronic kidney disease), stage III Status: Chronic Problem Text: * Renal funtion returned to baseline * ARB/HCTZ discontinued. * Continue to monitor BMP. Plan/VTE VTE Prophylaxis Ordered?: Yes (pt is on Eliquis) VS, I&O, 24H, Fishbone Vital Signs/I&O Vital Signs Date Time Temp Pulse Resp B/P Pulse Ox O2 Delivery O2 Flow Rate FiO2 12/19/16 06:00 101.2 90 18 152/62 92 Room Air I&O- Last 24 Hours up to 6 AM 12/19/16 06:00 Intake Total 835.5 ml Balance 835.5 ml Laboratory Data 24H LABS Laboratory Tests 2 12/18/16 20:52: Urine Amorphous Sediment SMALLH, Urine Appearance HAZY, Urine Color YELLOW, Urine pH 5.0, Urine Specific [place] 1.018, Urine Protein NEGATIVE, Urine Glucose (UA) NEGATIVE, Urine Ketones TRACEH, Urine Urobilinogen 0.2, Urine Bilirubin NEGATIVE, Urine Leukocyte Esterase 1+H, Urine Bacteria (Auto) NEGATIVE , Urine Blood NEGATIVE, Urine Calcium Carbonate Cryst(Auto) , Urine Calcium Oxalate Cryst (Auto) , Urine Calcium Phosphate Laura (Auto) , Urine Cellular Casts , Urine Cystine Crystals , Urine Granular Casts (Auto) , Urine Hyaline Casts (Auto) 0, Urine Leucine Crystals , Urine Mucus (Auto) SMALL, Urine Nitrite NEGATIVE, Urine Oval Fat Bodies (Auto) , Urine RBC (Auto) 1, Urine Renal Epithelial Cells , Urine Sperm (Auto) , Urine Squamous Epithelial Cells 6 , Urine Transitional Epithelial Cells , Urine Trichomonas (Auto) , Urine Triple Phosphate Cryst (Auto) , Urine Tyrosine Crystals , Urine Uric Acid Crystals ( Auto) , Urine WBC (Auto) 10H, Urine Waxy Casts (Auto) , Urine Yeast-Like Cells ( Auto) 12/19/16 06:58: Blood Urea Nitrogen 31H, Creatinine 1.11H, Sodium Level 138, Potassium Level 3.8 , Chloride Level 103, Carbon Dioxide Level 25, Calcium Level 8.1L, Aspartate Amino Transf (AST/SGOT) 16, Alanine Aminotransferase (ALT/SGPT) 21, Alkaline Phosphatase 122H, Total Bilirubin 0.4, Total Protein 5.5L, Albumin 2.6L, Albumin /Globulin Ratio 0.90L, Anion Gap 10, White Blood Count 4.5, Red Blood Count 3.10L, Hemoglobin 9.1L, Hematocrit 27.2L, Mean Corpuscular Volume 87.9, Mean Corpuscular Hemoglobin 29.3, Mean Corpuscular Hemoglobin Concent 33.3, Red Cell Distribution Width 14.8H, Platelet Count 174, Neutrophils (%) (Auto) 76.7H, Lymphocytes (%) (Auto) 10.9L, Monocytes (%) (Auto) 9.3H, Eosinophils (%) (Auto) 0.8, Basophils (%) (Auto) 0.3, Neutrophils # (Auto) 3.4, Lymphocytes # (Auto) 0.6L, Monocytes # (Auto) 0.4, Eosinophils # (Auto) 0.0, Basophils # (Auto) 0.0, C-Reactive Protein, Quantitative 2.98H, Glomerular Filtration Rate 51.0, Large Unclassified Cells # 0.1, Large Unclassified Cells % 2.0 CBC/BMP Laboratory Tests 12/19/16 06:58 Calcium Level 8.1 L, Aspartate Amino Transf (AST/SGOT) 16, Alanine Aminotransferase (ALT/SGPT) 21, Alkaline Phosphatase 122 H, Total Bilirubin 0.4 , Total Protein 5.5 L, Albumin 2.6 L, Red Blood Count 3.10 L, Mean Corpuscular Volume 87.9, Mean Corpuscular Hemoglobin 29.3, Mean Corpuscular Hemoglobin Concent 33.3, Red Cell Distribution Width 14.8 H, Neutrophils (%) (Auto) 76.7 H , Lymphocytes (%) (Auto) 10.9 L, Monocytes (%) (Auto) 9.3 H, Eosinophils (%) ( Auto) 0.8, Basophils (%) (Auto) 0.3, Neutrophils # (Auto) 3.4, Lymphocytes # ( Auto) 0.6 L, Monocytes # (Auto) 0.4, Eosinophils # (Auto) 0.0, Basophils # (Auto ) 0.0 Microbiology Microbiology 12/18/16 Blood Culture, Received Pending 12/18/16 Blood Culture, Received Pending 12/17/16 Blood Culture - Preliminary, Resulted No Growth after 48 hours. All Specime... 12/17/16 Blood Culture - Preliminary, Resulted 3/30/17 Urine Culture, Received Pending 12/17/16 Urine Culture - Final, Complete Patricia Randolph Dec 19, 2016 08:37
[2016-12-19 09:22] LABS: ERYTHROCYTE SEDIMENTATION RATE 65 mm/hr (0-30)
[2016-12-19] MEDS: DOCUSATE SODIUM 100 MG CAP PO SCH ×2 (09:50→21:24)
[2016-12-19] MEDS: POTASSIUM CITRATE 1080 MG (10MEQ) TAB PO SCH (09:50)
[2016-12-19] MEDS: amLODIPine 10 MG TAB PO SCH (09:51)
[2016-12-19] MEDS: POTASSIUM CHLORIDE 10 MEQ SR TABLET PO SCH (09:51)
[2016-12-19] MEDS: APIXABAN 5 MG TAB (ELIQUIS) PO SCH ×2 (09:51→21:24)
[2016-12-19] MEDS: PANTOPRAZOLE 40MG TAB (PROTONIX) PO SCH (09:51)
[2016-12-19] MEDS: LABETALOL 100 MG TAB PO SCH ×2 (09:51→21:23)
[2016-12-19] MEDS: BRINZOLAMIDE 1 % OPHTH SUSP (AZOPT) 10ML OD SCH ×3 (09:52→21:24)
[2016-12-19] MEDS: TIMOLOL MALEATE 0.5% OPHTH SOLN 5 ML OU SCH (09:52)
[2016-12-19 12:05] VITALS: BP 148/60
[2016-12-19 12:33] LABS: FOLATE 10.6 NG/ML (>5.4)
--- NOTE | 2016-12-19 13:06 | IPNPDOC ---
Technical Writing Lead/Mgr Progress Note DATE OF SERVICE: 12/19/2016 DATE OF ADMISSION: Dec 01, 2016 at 15:08 INPATIENT REHABILITATION ADMISSION DAY: #18 SUBJECTIVE: Patient is a 76-year-old white female with left CVA, aphasia of nonfluent type, and dense right hemiparesis. He again is without complaints though part of this his communication. However, she's been indicating less discomfort to nursing with regards to being cold or feeling feverish or pain. ALLERGIES: See Below MEDICATIONS: See below. OBJECTIVE: VITAL SIGNS: Please see below. PHYSICAL EXAMINATION: GENERAL: Short overweight elderly white female less wrapped up in blankets day and appearing more comfortable. Patient remains challenged on following directions or generating spontaneous speech. Patient continues to have fairly dense right hemiparesis with no signs of shoulder-hand syndrome HEENT: Normocephalic/atraumatic. CARDIOVASCULAR: Rate and rhythm with normal S1 and S2 and to 4 radial pulses LUNGS: Some rhonchi in left base, otherwise clear to auscultation. ABDOMEN: Obese nontender with normal bowel sounds in all quadrants. NEUROLOGICAL: As noted above. LABORATORY DATA: Reviewed. Please see below. MICROBIOLOGY: Please see below. IMAGING: CT chest shows infiltrates and left lower lobe in the upper area and some atelectasis in the base. DVT prophylaxis ordered?: Yes ASSESSMENT AND PLAN: 1. Left CVA with right hemiparesis and aphasia: Patient making very limited progress at this time anticipating transfer to skilled facility for more chronic program as of Thursday if no significant change in function. 2. Fever: Patient appears to have some pneumonia in the left lower lobe with atelectasis in the the lower aspect of that lobe as well. She is currently on treatment with IV vancomycin. One blood culture has come back positive for gram- positive cocci in pairs and clusters suggestive of the staph infection yet no elevation of white count. Patient discussed with Ms Tomasa EID and will continue the vancomycin pending the culture sensitivities. With the IV there may have been increased hydration the patient that may account for a drop in the H&H which will also need to be watched. Our this also reflects the change in blood pressure management medicines that has already resulted in improvement in renal function. 3. Chronic kidney disease: As noted above with changes and creatinine /BUN and as well as the alteration H&H. TIME SPENT: Greater than 30 minutes. Allergies Coded Allergies: Iodine (Verified Allergy, Unknown, 12/01/16) Salicylates (Verified Allergy, Unknown, 12/01/16) Shellfish Allergy (Verified Allergy, Unknown, 12/01/16) Vital Signs Vital Signs Date Time Temp Pulse Resp B/P Pulse Ox O2 Delivery O2 Flow Rate FiO2 12/19/16 12:05 148/60 12/19/16 10:48 99.5 12/19/16 09:51 90 12/19/16 09:00 Room Air 12/19/16 06:00 18 92 Laboratory Data CBC/BMP Laboratory Tests 12/19/16 06:58 Calcium Level 8.1 L, Aspartate Amino Transf (AST/SGOT) 16, Alanine Aminotransferase (ALT/SGPT) 21, Alkaline Phosphatase 122 H, Total Bilirubin 0.4 , Total Protein 5.5 L, Albumin 2.6 L, Red Blood Count 3.10 L, Mean Corpuscular Volume 87.9, Mean Corpuscular Hemoglobin 29.3, Mean Corpuscular Hemoglobin Concent 33.3, Red Cell Distribution Width 14.8 H, Neutrophils (%) (Auto) 76.7 H , Lymphocytes (%) (Auto) 10.9 L, Monocytes (%) (Auto) 9.3 H, Eosinophils (%) ( Auto) 0.8, Basophils (%) (Auto) 0.3, Neutrophils # (Auto) 3.4, Lymphocytes # ( Auto) 0.6 L, Monocytes # (Auto) 0.4, Eosinophils # (Auto) 0.0, Basophils # (Auto ) 0.0 Labs 24H Laboratory Tests 2 12/18/16 20:52: Urine Amorphous Sediment SMALLH, Urine Appearance HAZY, Urine Color YELLOW, Urine pH 5.0, Urine Specific [place] 1.018, Urine Protein NEGATIVE, Urine Glucose (UA) NEGATIVE, Urine Ketones TRACEH, Urine Urobilinogen 0.2, Urine Bilirubin NEGATIVE, Urine Leukocyte Esterase 1+H, Urine Bacteria (Auto) NEGATIVE , Urine Blood NEGATIVE, Urine Calcium Carbonate Cryst(Auto) , Urine Calcium Oxalate Cryst (Auto) , Urine Calcium Phosphate Laura (Auto) , Urine Cellular Casts , Urine Cystine Crystals , Urine Granular Casts (Auto) , Urine Hyaline Casts (Auto) 0, Urine Leucine Crystals , Urine Mucus (Auto) SMALL, Urine Nitrite NEGATIVE, Urine Oval Fat Bodies (Auto) , Urine RBC (Auto) 1, Urine Renal Epithelial Cells , Urine Sperm (Auto) , Urine Squamous Epithelial Cells 6 , Urine Transitional Epithelial Cells , Urine Trichomonas (Auto) , Urine Triple Phosphate Cryst (Auto) , Urine Tyrosine Crystals , Urine Uric Acid Crystals ( Auto) , Urine WBC (Auto) 10H, Urine Waxy Casts (Auto) , Urine Yeast-Like Cells ( Auto) 12/19/16 06:58: Blood Urea Nitrogen 31H, Creatinine 1.11H, Sodium Level 138, Potassium Level 3.8 , Chloride Level 103, Carbon Dioxide Level 25, Calcium Level 8.1L, Aspartate Amino Transf (AST/SGOT) 16, Alanine Aminotransferase (ALT/SGPT) 21, Alkaline Phosphatase 122H, Total Bilirubin 0.4, Total Protein 5.5L, Albumin 2.6L, Albumin /Globulin Ratio 0.90L, Anion Gap 10, White Blood Count 4.5, Red Blood Count 3.10L, Hemoglobin 9.1L, Hematocrit 27.2L, Mean Corpuscular Volume 87.9, Mean Corpuscular Hemoglobin 29.3, Mean Corpuscular Hemoglobin Concent 33.3, Red Cell Distribution Width 14.8H, Platelet Count 174, Neutrophils (%) (Auto) 76.7H, Lymphocytes (%) (Auto) 10.9L, Monocytes (%) (Auto) 9.3H, Eosinophils (%) (Auto) 0.8, Basophils (%) (Auto) 0.3, Neutrophils # (Auto) 3.4, Lymphocytes # (Auto) 0.6L, Monocytes # (Auto) 0.4, Eosinophils # (Auto) 0.0, Basophils # (Auto) 0.0, C-Reactive Protein, Quantitative 2.98H, Erythrocyte Sedimentation Rate 65H, Ferritin 295H, Glomerular Filtration Rate 51.0, Iron Level 22L, Large Unclassified Cells # 0.1, Large Unclassified Cells % 2.0, Total Iron Binding Capacity 245L, Transferrin % Saturation 9.0L Microbiology Microbiology 12/18/16 Blood Culture, Received Pending 12/18/16 Blood Culture, Received Pending 12/17/16 Blood Culture - Preliminary, Resulted No Growth after 48 hours. All Specime... 12/17/16 Blood Culture - Preliminary, Resulted 12/18/16 Urine Culture, Received Pending 12/17/16 Urine Culture - Final, Complete Current Medications Current Medications Current Medications Acetaminophen (Tylenol Tab) 650 mg Q4HP PRN PO MILD PAIN OR FEVER Last administered on 12/19/16 05:28; Start 12/01/16 at 14:30; Stop 01/16/17 at 14:29 Amlodipine Besylate (Norvasc) 10 mg DAILY PO Last administered on 12/19/16 09: 51; Start 12/02/16 at 09:00; Stop 01/01/17 at 08:59 Apixaban (Eliquis) 5 mg BID PO Last administered on 12/19/16 09:51; Start at 21:00; Stop 12/22/16 at 20:59 Atorvastatin Calcium (Lipitor) 80 mg QHS PO Last administered on 12/18/16 21: 32; Start 12/01/16 at 21:00; Stop 12/31/16 at 20:59 Brinzolamide (Azopt) 1 drop TID OD Last administered on 12/19/16 09:52; Start 12/01/16 at 16:00; Stop 12/31/16 at 15:59 Cefdinir 300 mg 300 mg BID PO Last administered on 12/18/16 21:32; Start 12/17 at 21:00; Stop 12/18/16 at 23:14; Status DC Clonidine HCl (Catapres) 0.2 mg TID PO Last administered on 12/02/16 08:51; Start 12/01/16 at 16:00; Stop 12/02/16 at 09:31; Status DC Clonidine HCl (Catapres) 0.3 mg Q8H PO Last administered on 12/14/16 05:01; Start 12/10/16 at 22:00; Stop 12/14/16 at 06:50; Status DC Clonidine HCl 0.2 mg 0.2 mg Q6H PO Last administered on 12/10/16 12:21; Start 12/02/16 at 12:00; Stop 12/10/16 at 14:31; Status DC Docusate Sodium (Colace) 100 mg BID PO Last administered on 12/19/16 09:50; Start 12/01/16 at 21:00; Stop 12/31/16 at 20:59 Home Med (Med Rec Complete!) ASDIRECTED XX ; Start 12/01/16 at 18:00; Stop at 18:00; Status DC Hydralazine HCl (Apresoline) 25 mg Q6H PO Last administered on 12/19/16 12:02 ; Start 12/14/16 at 12:00; Stop 01/13/17 at 11:59 Hydrochlorothiazide (Hydrodiuril) 12.5 mg DAILY PO Last administered on 09:30; Start 12/12/16 at 09:00; Stop 12/17/16 at 15:43; Status DC Hydrochlorothiazide (Hydrodiuril) 25 mg DAILY PO Last administered on 09:24; Start 12/02/16 at 09:00; Stop 12/03/16 at 11:46; Status DC Isosorbide Dinitrate (Isordil) 30 mg Q8H PO Last administered on 12/19/16 05: 28; Start 12/17/16 at 14:00; Stop 01/16/17 at 13:59 Labetalol HCl (Normodyne, Trandate) 300 mg BID PO Last administered on 09:51; Start 12/05/16 at 21:00; Stop 01/04/17 at 20:59 Labetalol HCl (Normodyne, Trandate) 400 mg BID PO Last administered on 21:38; Start 12/01/16 at 21:00; Stop 12/05/16 at 09:28; Status DC Latanoprost (Xalatan 0.005% Op Soln) 1 drop QHS OU Last administered on 21:32; Start 12/01/16 at 21:00; Stop 12/31/16 at 20:59 Levothyroxine Sodium (Synthroid) 0.05 mg DAILY@06 PO Last administered on 05:29; Start 12/02/16 at 06:00; Stop 01/01/17 at 05:59 Losartan Potassium (Cozaar) 100 mg DAILY PO Last administered on 12/17/16 09: 30; Start 12/02/16 at 09:00; Stop 12/17/16 at 15:43; Status DC Magnesium Gluconate (Magnesium Gluconate) 500 mg BID PO Last administered on 09:09; Start 12/01/16 at 21:00; Stop 12/05/16 at 09:36; Status DC Magnesium Hydroxide (Milk Of Magnesia) 30 ml DAILYPRN PRN PO CONSTIPATION Last administered on 12/12/16 15:55; Start 12/01/16 at 14:30; Stop 12/31/16 at 14:29 Miscellaneous (Unresolved Clarification Entry) SEE LABEL COMMENTS UNRESOLVED XX ; Start 12/01/16 at 00:01; Stop 12/01/16 at 17:54; Status DC Pantoprazole Sodium (Protonix) 40 mg DAILY PO Last administered on 12/19/16 09 :51; Start 12/01/16 at 09:00; Stop 12/31/16 at 08:59 Polyethylene Glycol (Miralax) 1 pkt DAILYPRN PRN PO CONSTIPATION; Start at 14:30; Stop 12/31/16 at 14:29 Potassium Chloride (Micro-K Extencaps) 10 meq DAILY PO Last administered on 09:22; Start 12/02/16 at 09:00; Stop 12/03/16 at 12:00; Status DC Potassium Chloride (Micro-K Extencaps) 10 meq DAILY PO Last administered on 09:51; Start 12/12/16 at 09:00; Stop 01/11/17 at 08:59 Potassium Citrate (Urocit-K) 1,080 mg DAILY@08 PO Last administered on 09:50; Start 12/02/16 at 08:00; Stop 01/01/17 at 07:59 Senna (Senokot) 1 tab QHS PO Last administered on 12/18/16 21:31; Start at 21:00; Stop 12/31/16 at 20:59 Sodium Chloride (Nacl 0.9%) 1,000 ml @ 50 mls/hr Q20H IV Last administered on 12/06/16 00:20; Start 12/04/16 at 09:15; Stop 12/06/16 at 10:45; Status DC Timolol Maleate (Timoptic 0.5% Ophth Janine) 1 drop DAILY OU Last administered on 12/19/16 09:52; Start 12/02/16 at 09:00; Stop 01/01/17 at 08:59 Vancomycin HCl/IV Miscellaneous Supplies/Dextrose (Vancomycin HCl/ Adapter-Vial Mate/ Dextrose 5%) 270 ml @ 270 mls/hr Q24H IV ; Start 12/19/16 at 14:00; Stop 12/26/16 at 13:59 MONA HASSAN MD Dec 19, 2016 13:06
[2016-12-19 14:00] VITALS: BP 152/72
[2016-12-19] MEDS ORDERED: VANCOMYCIN HCL 1,000 MG, VIAL MATE ADAPTER 1 EACH in D5W 250 ML IV SCH (14:00)
[2016-12-19 16:59] VITALS: BP 161/71
[2016-12-19 20:00] VITALS: BP 171/67
[2016-12-19] MEDS: SENNA 8.6 MG TAB (SENOKOT) PO SCH (21:00)
[2016-12-19] MEDS: ATORVASTATIN 20 MG TAB PO SCH (21:24)
[2016-12-19] MEDS: LATANOPROST 0.005% OPHTH SOLN 2.5 ML OU SCH (21:24)
--- NOTE | 2016-12-19 22:21 | ECGEPIP ---
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
[2016-12-20] VITALS (8 sets, daily range): BP systolic 138–180; BP diastolic 60–77
[2016-12-20] MEDS: ACETAMINOPHEN TAB 650MG DOSE (2X325MG) PO PRN ×3 (00:12→18:19)
[2016-12-20] MEDS: **hydrALAZINE HCL** 25 MG TAB PO SCH ×4 (00:12→18:19)
[2016-12-20] MEDS: LEVOTHYROXINE 0.05 MG TAB (50 MCG) PO SCH (06:21)
[2016-12-20] MEDS: ISOSORBIDE DIN. (ISORDIL) 30 MG TAB PO SCH ×3 (06:21→21:54)
[2016-12-20 07:07] LABS: BASO % 0.2 % (0.0-1.0); EOS # 0.1 K/mm3 (0.0-0.50); EOS % 1.2 % (0.0-3.0); LARGE UNSTAINED CELL # 0.1 K/mm3 (0.0-0.4); LARGE UNSTAINED CELL % 2.8 % (0.0-4.0); LYMPH # 0.6 K/mm3 (1.5-4.5); LYMPH % 10.8 % (24.0-44.0); MEAN CORPUSCULAR HEMOGLOBIN 28.4 pg (27.0-33.0); MEAN CORPUSCULAR HGB CONC 32.1 g/dl (32.0-36.5); MEAN CORPUSCULAR VOLUME 88.6 fl (80.0-96.0); MONO # 0.3 K/mm3 (0.0-0.8); MONO % 5.9 % (0.0-5.0); NEUTROPHILS # 3.7 K/mm3 (1.8-7.7); NEUTROPHILS % 79.1 % (36.0-66.0); PLATELET COUNT, AUTOMATED 166 k/mm3 (150-450); RED CELL DISTRIBUTION WIDTH 14.7 % (11.5-14.5); WHITE BLOOD COUNT 4.7 K/mm3 (4.0-10.0)
[2016-12-20 07:35] LABS: ALBUMIN 2.9 GM/DL (3.2-5.2); ALBUMIN/GLOBULIN RATIO 1.07 (1.00-1.93); BILIRUBIN,TOTAL 0.6 MG/DL (0.2-1.0); CALCIUM LEVEL 8.8 MG/DL (8.8-10.2); GLOMERULAR FILTRATION RATE 57.5 (>39); POTASSIUM SERUM 3.7 MEQ/L (3.5-5.1); TOTAL PROTEIN 5.6 GM/DL (6.4-8.2)
[2016-12-20] MEDS: POTASSIUM CITRATE 1080 MG (10MEQ) TAB PO SCH (08:51)
[2016-12-20] MEDS: DOCUSATE SODIUM 100 MG CAP PO SCH ×2 (08:51→21:00)
[2016-12-20] MEDS: POTASSIUM CHLORIDE 10 MEQ SR TABLET PO SCH (08:51)
[2016-12-20] MEDS: APIXABAN 5 MG TAB (ELIQUIS) PO SCH ×2 (08:52→21:54)
[2016-12-20] MEDS: amLODIPine 10 MG TAB PO SCH (08:52)
[2016-12-20] MEDS: PANTOPRAZOLE 40MG TAB (PROTONIX) PO SCH (08:52)
[2016-12-20] MEDS: TIMOLOL MALEATE 0.5% OPHTH SOLN 5 ML OU SCH (08:53)
[2016-12-20] MEDS: LABETALOL 100 MG TAB PO SCH ×2 (08:53→21:54)
[2016-12-20] MEDS: BRINZOLAMIDE 1 % OPHTH SUSP (AZOPT) 10ML OD SCH ×3 (08:53→21:54)
--- NOTE | 2016-12-20 11:02 | ECHO ---
DATE OF PROCEDURE: 12/19/2016 REFERRING PHYSICIAN: Tasia Nagel MD PATIENT LOCATION: Room 4147 REASON FOR ECHOCARDIOGRAM: Endocarditis, atrial fibrillation. 2D MEASUREMENTS: IVS: 1.5 cm LV: 3.3 cm LVPW: 1.4 cm LA: 4.0 cm Aorta: 2.4 cm IVC: 1.6 cm DOPPLER MEASUREMENTS: Peak velocity across the aortic valve: 1.5 m/s Peak velocity across the LVOT: 1.2 m/s Mitral E: 0.75, Mitral A: 1.2, with a ratio of 0.6 Maximum tricuspid valve velocity: 2.3 m/s 2D COMMENTS: 1. Mildly to moderate increased left ventricular wall thickness with normal left ventricular size and a normal global left ventricular systolic function. Left ventricular systolic ejection fraction is estimated at 60% to 65%. 2. Borderline enlarged left atrium. Normal right atrium and right ventricle. 3. The atrial septum appeared to be normal without evidence of defect or shunt. 4. Normal aortic root. 5. No pericardial effusion seen. 6. Minimally calcified aortic valve with normal leaflet excursion. Mildly calcified mitral annulus with normal anterior mitral valve leaflet motion. Normal tricuspid valve. The pulmonic valve appeared to be normal in limited views. The proximal pulmonary artery branches were not well visualized. 7. The inferior vena cava was normal in size, central venous pressure is most likely normal. DOPPLER: It detects trace mitral regurgitation and trace to mild tricuspid regurgitation. The calculated pulmonary artery systolic pressure is about 30 mmHg. Abnormal relaxation pattern was noted across the mitral valve leaflets as well as the mitral valve annulus consistent with grade 1 left ventricular diastolic dysfunction. IMPRESSION: 1. Normal global left ventricular systolic function with probably moderate concentric left ventricular hypertrophy. There are features of left ventricular diastolic dysfunction, grade 1. 2. Aortic valve sclerosis without any significant stenosis or aortic regurgitation. 3. Borderline enlarged left atrium with trace mitral regurgitation and mitral annulus calcification. 4. Trace to mild tricuspid regurgitation with probably mild pulmonary hypertension.
[2016-12-20] MEDS: SENNA 8.6 MG TAB (SENOKOT) PO SCH (21:00)
[2016-12-20] MEDS: ATORVASTATIN 20 MG TAB PO SCH (21:53)
[2016-12-20] MEDS: LATANOPROST 0.005% OPHTH SOLN 2.5 ML OU SCH (21:54)
[2016-12-21] VITALS (8 sets, daily range): BP systolic 139–172; BP diastolic 58–78
[2016-12-21] MEDS: **hydrALAZINE HCL** 25 MG TAB PO SCH ×4 (00:04→18:30)
[2016-12-21] MEDS: ACETAMINOPHEN TAB 650MG DOSE (2X325MG) PO PRN ×2 (04:11→20:26)
[2016-12-21] MEDS: LEVOTHYROXINE 0.05 MG TAB (50 MCG) PO SCH (06:23)
[2016-12-21] MEDS: ISOSORBIDE DIN. (ISORDIL) 30 MG TAB PO SCH ×3 (06:23→21:18)
[2016-12-21 06:54] LABS: BASO % 0.5 % (0.0-1.0); EOS # 0.1 K/mm3 (0.0-0.50); EOS % 3.3 % (0.0-3.0); LARGE UNSTAINED CELL # 0.1 K/mm3 (0.0-0.4); LARGE UNSTAINED CELL % 2.5 % (0.0-4.0); LYMPH # 0.7 K/mm3 (1.5-4.5); MEAN CORPUSCULAR HEMOGLOBIN 28.2 pg (27.0-33.0); MEAN CORPUSCULAR HGB CONC 31.6 g/dl (32.0-36.5); MEAN CORPUSCULAR VOLUME 89.3 fl (80.0-96.0); MONO # 0.3 K/mm3 (0.0-0.8); MONO % 7.4 % (0.0-5.0); NEUTROPHILS # 2.5 K/mm3 (1.8-7.7); NEUTROPHILS % 68.4 % (36.0-66.0); PLATELET COUNT, AUTOMATED 173 k/mm3 (150-450); RED CELL DISTRIBUTION WIDTH 14.8 % (11.5-14.5); WHITE BLOOD COUNT 3.6 K/mm3 (4.0-10.0)
[2016-12-21 07:05] LABS: ALBUMIN 2.4 GM/DL (3.2-5.2); ALBUMIN/GLOBULIN RATIO 0.71 (1.00-1.93); BILIRUBIN,TOTAL 0.3 MG/DL (0.2-1.0); CALCIUM LEVEL 8.4 MG/DL (8.8-10.2); CREATININE FOR GFR 0.99 MG/DL (0.55-1.02); GLOMERULAR FILTRATION RATE 58.2 (>39); POTASSIUM SERUM 3.5 MEQ/L (3.5-5.1); TOTAL PROTEIN 5.8 GM/DL (6.4-8.2)
[2016-12-21] MEDS: PANTOPRAZOLE 40MG TAB (PROTONIX) PO SCH (08:19)
[2016-12-21] MEDS: BRINZOLAMIDE 1 % OPHTH SUSP (AZOPT) 10ML OD SCH ×3 (08:20→20:23)
[2016-12-21] MEDS: POTASSIUM CHLORIDE 10 MEQ SR TABLET PO SCH (08:20)
[2016-12-21] MEDS: amLODIPine 10 MG TAB PO SCH (08:20)
[2016-12-21] MEDS: TIMOLOL MALEATE 0.5% OPHTH SOLN 5 ML OU SCH (08:20)
[2016-12-21] MEDS: APIXABAN 5 MG TAB (ELIQUIS) PO SCH ×2 (08:20→20:16)
[2016-12-21] MEDS: LABETALOL 100 MG TAB PO SCH ×2 (08:20→20:23)
[2016-12-21] MEDS: POTASSIUM CITRATE 1080 MG (10MEQ) TAB PO SCH (08:20)
[2016-12-21] MEDS: DOCUSATE SODIUM 100 MG CAP PO SCH ×2 (08:21→20:16)
[2016-12-21] MEDS: ATORVASTATIN 20 MG TAB PO SCH (20:16)
[2016-12-21] MEDS: SENNA 8.6 MG TAB (SENOKOT) PO SCH (20:23)
[2016-12-21] MEDS: LATANOPROST 0.005% OPHTH SOLN 2.5 ML OU SCH (20:24)
[2016-12-22 00:26] VITALS: BP 128/58
[2016-12-22 06:00] VITALS: BP 186/82
[2016-12-22] MEDS: ISOSORBIDE DIN. (ISORDIL) 30 MG TAB PO SCH ×3 (06:23→21:36)
[2016-12-22] MEDS: LEVOTHYROXINE 0.05 MG TAB (50 MCG) PO SCH (06:23)
[2016-12-22] MEDS: **hydrALAZINE HCL** 25 MG TAB PO SCH ×5 (06:24→23:59)
[2016-12-22 07:29] LABS: BASO % 0.7 % (0.0-1.0); EOS # 0.1 K/mm3 (0.0-0.50); EOS % 3.6 % (0.0-3.0); LARGE UNSTAINED CELL # 0.1 K/mm3 (0.0-0.4); LARGE UNSTAINED CELL % 2.7 % (0.0-4.0); LYMPH # 1.1 K/mm3 (1.5-4.5); LYMPH % 27.1 % (24.0-44.0); MEAN CORPUSCULAR HEMOGLOBIN 29.2 pg (27.0-33.0); MEAN CORPUSCULAR HGB CONC 32.5 g/dl (32.0-36.5); MEAN CORPUSCULAR VOLUME 90.1 fl (80.0-96.0); MONO # 0.2 K/mm3 (0.0-0.8); MONO % 6.1 % (0.0-5.0); NEUTROPHILS # 2.3 K/mm3 (1.8-7.7); NEUTROPHILS % 59.8 % (36.0-66.0); PLATELET COUNT, AUTOMATED 197 k/mm3 (150-450); RED CELL DISTRIBUTION WIDTH 14.7 % (11.5-14.5); WHITE BLOOD COUNT 3.8 K/mm3 (4.0-10.0)
[2016-12-22 07:42] LABS: ALBUMIN 2.6 GM/DL (3.2-5.2); ALBUMIN/GLOBULIN RATIO 0.96 (1.00-1.93); BILIRUBIN,TOTAL 0.4 MG/DL (0.2-1.0); CALCIUM LEVEL 8.3 MG/DL (8.8-10.2); CREATININE FOR GFR 1.04 MG/DL (0.55-1.02); POTASSIUM SERUM 3.9 MEQ/L (3.5-5.1); TOTAL PROTEIN 5.3 GM/DL (6.4-8.2)
[2016-12-22] MEDS: POTASSIUM CITRATE 1080 MG (10MEQ) TAB PO SCH (08:00)
[2016-12-22] MEDS: APIXABAN 5 MG TAB (ELIQUIS) PO SCH ×2 (08:31→21:35)
[2016-12-22] MEDS: DOCUSATE SODIUM 100 MG CAP PO SCH ×2 (08:31→21:35)
[2016-12-22] MEDS: POTASSIUM CHLORIDE 10 MEQ SR TABLET PO SCH (08:32)
[2016-12-22] MEDS: LABETALOL 100 MG TAB PO SCH ×2 (08:32→21:36)
[2016-12-22] MEDS: PANTOPRAZOLE 40MG TAB (PROTONIX) PO SCH (08:33)
[2016-12-22] MEDS: amLODIPine 10 MG TAB PO SCH (08:33)
[2016-12-22] MEDS: TIMOLOL MALEATE 0.5% OPHTH SOLN 5 ML OU SCH (08:34)
[2016-12-22] MEDS: BRINZOLAMIDE 1 % OPHTH SUSP (AZOPT) 10ML OD SCH ×3 (08:34→21:38)
[2016-12-22 10:24] VITALS: BP 146/60
--- NOTE | 2016-12-22 11:46 | IPNPDOC ---
Subjective Date Seen The patient was seen on 12/22/16. Subjective Chief Complaint/HPI The patient is a 76-year-old female admitted with a reason for visit of Cva Onset 11/21/16. Events since last encounter Pt with expressive aphasia. denies pain, SOB, CP. Objective Physical Examination General Exam: Positive: Alert Eye Exam: Positive: PERRLA ENT Exam: Positive: Atraumatic Chest Exam: Positive: Clear to auscultation, Normal air movement Heart Exam: Positive: Normal S1, Normal S2, Rate Normal, Regular Rhythm, Negative: Murmurs, Rubs Abdomen Exam: Positive: Normal bowel sounds, Soft, Negative: Hepatospenomegaly, Tenderness Skin Exam: Positive: Nl turgor and temperature, Negative: Breakdown, Rash Neuro Exam: Positive: Other (expressive aphasia. Rt hemiparesis. ) Assessment /Plan Problems (1) Fever Status: Acute Problem Text: * Pt with T max 100.1. * 12/17 BC x 1 neg. x 1 staph hominis. * 12/18 BC x 2 neg. . * UC x 2 neg. * 12/18 UC neg. * CXR with atalectasis. * CT with pulm nodule. LLL atalectasis. * CBC with no leukocytosis. * Pt denies any symptoms, hx is difficult. * Echo EF 60-65%, Grade I DD. * Antibiotics d/cd. * Monitor. Tylenol as needed. (2) CVA (cerebral vascular accident) Status: Chronic Problem Text: * Rehab as per ARU * PT/OT/ST * Eliquis (3) SAH (subarachnoid hemorrhage) Status: Chronic (4) Urinary retention Status: Chronic Problem Text: * repeat UC neg (5) HTN (hypertension) Status: Chronic Problem Text: * D/C HCTZ/ARB * Hydralazine/Isosorbide/Labetalol/norvasc. (6) Hypothyroid Status: Chronic Problem Text: * supplement (7) DVT (deep venous thrombosis) Status: Acute Problem Text: * H/O Rt LE DVT * Pt on Eliquis (8) Anemia Status: Acute Problem Text: * Hgb trend improved. * Stool OB neg. * Monitor labs. (9) CKD (chronic kidney disease), stage III Status: Chronic Problem Text: * Renal funtion returned to baseline * ARB/HCTZ discontinued. * Continue to monitor BMP. Plan/VTE VTE Prophylaxis Ordered?: Yes (pt on Eliquis) VS, I&O, 24H, Fishbone Vital Signs/I&O Vital Signs Date Time Temp Pulse Resp B/P Pulse Ox O2 Delivery O2 Flow Rate FiO2 12/22/16 10:24 146/60 12/22/16 08:32 80 12/22/16 08:30 Room Air 12/22/16 06:00 99.6 18 91 12/21/16 06:00 2.0 I&O- Last 24 Hours up to 6 AM 12/22/16 06:00 Intake Total 540 ml Output Total 900 ml Balance -360 ml Laboratory Data 24H LABS Laboratory Tests 2 12/22/16 07:02: Blood Urea Nitrogen 23H, Creatinine 1.04H, Sodium Level 144, Potassium Level 3.9 , Chloride Level 110H, Carbon Dioxide Level 28, Calcium Level 8.3L, Aspartate Amino Transf (AST/SGOT) 20, Alanine Aminotransferase (ALT/SGPT) 20, Alkaline Phosphatase 124H, Total Bilirubin 0.4, Total Protein 5.3L, Albumin 2.6L, Albumin /Globulin Ratio 0.96L, Anion Gap 6L, White Blood Count 3.8L, Red Blood Count 3.19L, Hemoglobin 9.3L, Hematocrit 28.8L, Mean Corpuscular Volume 90.1, Mean Corpuscular Hemoglobin 29.2, Mean Corpuscular Hemoglobin Concent 32.5, Red Cell Distribution Width 14.7H, Platelet Count 197, Neutrophils (%) (Auto) 59.8, Lymphocytes (%) (Auto) 27.1, Monocytes (%) (Auto) 6.1H, Eosinophils (%) (Auto) 3.6H, Basophils (%) (Auto) 0.7, Neutrophils # (Auto) 2.3, Lymphocytes # (Auto) 1.1L, Monocytes # (Auto) 0.2, Eosinophils # (Auto) 0.1, Basophils # (Auto) 0.0, Glomerular Filtration Rate 55.0, Large Unclassified Cells # 0.1, Large Unclassified Cells % 2.7 CBC/BMP Laboratory Tests 12/22/16 07:02 Calcium Level 8.3 L, Aspartate Amino Transf (AST/SGOT) 20, Alanine Aminotransferase (ALT/SGPT) 20, Alkaline Phosphatase 124 H, Total Bilirubin 0.4 , Total Protein 5.3 L, Albumin 2.6 L, Red Blood Count 3.19 L, Mean Corpuscular Volume 90.1, Mean Corpuscular Hemoglobin 29.2, Mean Corpuscular Hemoglobin Concent 32.5, Red Cell Distribution Width 14.7 H, Neutrophils (%) (Auto) 59.8, Lymphocytes (%) (Auto) 27.1, Monocytes (%) (Auto) 6.1 H, Eosinophils (%) (Auto) 3.6 H, Basophils (%) (Auto) 0.7, Neutrophils # (Auto) 2.3, Lymphocytes # (Auto) 1.1 L, Monocytes # (Auto) 0.2, Eosinophils # (Auto) 0.1, Basophils # (Auto) 0.0 Microbiology Microbiology 12/18/16 Blood Culture - Preliminary, Resulted No Growth after 72 hours. All specime... 12/18/16 Blood Culture - Preliminary, Resulted No Growth after 72 hours. All specime... 12/17/16 Blood Culture - Final, Complete NO GROWTH AFTER 5 DAYS 12/17/16 Blood Culture - Final, Complete Staphylococcus Hominis Ssp Jasiel 12/20/16 Stool Occult Blood (JOSELYN) - Final, Complete 12/19/16 Respiratory Virus Panel (PCR) (JOSELYN) - Final, Complete Human Metapneumovirus 12/19/16 MRSA Screen - Final, Complete 12/18/16 Urine Culture - Final, Complete 12/17/16 Urine Culture - Final, Complete Patricia Randolph Dec 22, 2016 11:46
[2016-12-22 14:00] VITALS: BP 150/59
--- NOTE | 2016-12-22 15:08 | IPNPDOC ---
[employer] Progress Note DATE OF SERVICE: 12/22/16 DATE OF ADMISSION: Dec 01, 2016 at 15:08 INPATIENT REHABILITATION ADMISSION DAY: #21 SUBJECTIVE: Patient is a 76-year-old white female with with CVA with dense right hemiparesis and nonfluent aphasia. Patient denies any pain or problems but has difficulty reporting due to the aphasia. ALLERGIES: See Below MEDICATIONS ON ADMISSION: Reviewed, see below. OBJECTIVE: VITAL SIGNS: Please see below. PHYSICAL EXAMINATION: GENERAL: Short overweight elderly white female with fairly dense expressive aphasia and mild to moderately dense receptive aphasia sitting up in chair working with therapy. Patient no acute distress but has difficulty with right upper extremity showing any movement at this time. HEENT: Normocephalic/atraumatic minimal droop. CARDIOVASCULAR: Regular rate and rhythm with normal S1 and S2 without S3-S4 murmurs or rubs and to L4 radial pulses present. LUNGS: All rodriguez clear to auscultation with improve air movement and left lower lobe region. ABDOMEN: Obese nontender with normal bowel sounds in all quadrants. NEUROLOGICAL: As noted above. LABORATORY DATA: Reviewed. Please see below. MICROBIOLOGY: Please see below. DVT prophylaxis ordered?: Yes ASSESSMENT AND PLAN: 1. Rehabilitation of left CVA: Patient making some progress though slow and will require additional time for training. For now working on skilled care options to allow patient better time for neurologic healing and ongoing therapies. Of note the patient showed marked improvement in her communications being 80% accurate producing small syllables and more awareness of her environment situation as well as initiating using the communication board to communicate about her family. Patient tends to be supervision to min assist in most ADLs except for shower transfer still being 1 out of 7 on FIM scoring. Patient is limited to 10' of gaiting with PT. Plan Discharge to SNF vs. NH within next 2 days. 2. Renal function: Patient is a bit dry is BUN has increased to 23 we'll try to get more fluid intake along with nutrition. As patient also with hypoalbuminemia with current level II.6. 3. Pneumonia: Patient off of vancomycin and on no other antibiotics. Blood cultures are negative as his stool culture and only nasal swab for metapneumonia virus is positive. However patient still has some fevers. TIME SPENT: Chart review, physical exam, team rounds and documentation required greater than 35 minutes. Allergies Coded Allergies: Iodine (Verified Allergy, Unknown, 12/01/16) Salicylates (Verified Allergy, Unknown, 12/01/16) Shellfish Allergy (Verified Allergy, Unknown, 12/01/16) Vital Signs Vital Signs Date Time Temp Pulse Resp B/P Pulse Ox O2 Delivery O2 Flow Rate FiO2 12/22/16 10:24 146/60 12/22/16 08:32 80 12/22/16 08:30 Room Air 12/22/16 06:00 99.6 18 91 12/21/16 06:00 2.0 Laboratory Data CBC/BMP Laboratory Tests 12/22/16 07:02 Calcium Level 8.3 L, Aspartate Amino Transf (AST/SGOT) 20, Alanine Aminotransferase (ALT/SGPT) 20, Alkaline Phosphatase 124 H, Total Bilirubin 0.4 , Total Protein 5.3 L, Albumin 2.6 L, Red Blood Count 3.19 L, Mean Corpuscular Volume 90.1, Mean Corpuscular Hemoglobin 29.2, Mean Corpuscular Hemoglobin Concent 32.5, Red Cell Distribution Width 14.7 H, Neutrophils (%) (Auto) 59.8, Lymphocytes (%) (Auto) 27.1, Monocytes (%) (Auto) 6.1 H, Eosinophils (%) (Auto) 3.6 H, Basophils (%) (Auto) 0.7, Neutrophils # (Auto) 2.3, Lymphocytes # (Auto) 1.1 L, Monocytes # (Auto) 0.2, Eosinophils # (Auto) 0.1, Basophils # (Auto) 0.0 Labs 24H Laboratory Tests 2 12/22/16 07:02: Blood Urea Nitrogen 23H, Creatinine 1.04H, Sodium Level 144, Potassium Level 3.9 , Chloride Level 110H, Carbon Dioxide Level 28, Calcium Level 8.3L, Aspartate Amino Transf (AST/SGOT) 20, Alanine Aminotransferase (ALT/SGPT) 20, Alkaline Phosphatase 124H, Total Bilirubin 0.4, Total Protein 5.3L, Albumin 2.6L, Albumin /Globulin Ratio 0.96L, Anion Gap 6L, White Blood Count 3.8L, Red Blood Count 3.19L, Hemoglobin 9.3L, Hematocrit 28.8L, Mean Corpuscular Volume 90.1, Mean Corpuscular Hemoglobin 29.2, Mean Corpuscular Hemoglobin Concent 32.5, Red Cell Distribution Width 14.7H, Platelet Count 197, Neutrophils (%) (Auto) 59.8, Lymphocytes (%) (Auto) 27.1, Monocytes (%) (Auto) 6.1H, Eosinophils (%) (Auto) 3.6H, Basophils (%) (Auto) 0.7, Neutrophils # (Auto) 2.3, Lymphocytes # (Auto) 1.1L, Monocytes # (Auto) 0.2, Eosinophils # (Auto) 0.1, Basophils # (Auto) 0.0, Glomerular Filtration Rate 55.0, Large Unclassified Cells # 0.1, Large Unclassified Cells % 2.7 Microbiology Microbiology 12/18/16 Blood Culture - Preliminary, Resulted No Growth after 72 hours. All specime... 12/18/16 Blood Culture - Preliminary, Resulted No Growth after 72 hours. All specime... 12/17/16 Blood Culture - Final, Complete NO GROWTH AFTER 5 DAYS 12/17/16 Blood Culture - Final, Complete Staphylococcus Hominis Ssp Jasiel 12/20/16 Stool Occult Blood (JOSELYN) - Final, Complete 12/19/16 Respiratory Virus Panel (PCR) (JOSELYN) - Final, Complete Human Metapneumovirus 12/19/16 MRSA Screen - Final, Complete 12/18/16 Urine Culture - Final, Complete 12/17/16 Urine Culture - Final, Complete Current Medications Current Medications Current Medications Acetaminophen (Tylenol Tab) 650 mg Q4HP PRN PO MILD PAIN OR FEVER Last administered on 12/21/16 20:26; Start 12/01/16 at 14:30; Stop 01/16/17 at 14:29 Amlodipine Besylate (Norvasc) 10 mg DAILY PO Last administered on 12/22/16 08: 33; Start 12/02/16 at 09:00; Stop 01/01/17 at 08:59 Apixaban (Eliquis) 5 mg BID PO Last administered on 12/22/16 08:31; Start 12/01 at 21:00; Stop 12/22/16 at 20:59 Atorvastatin Calcium (Lipitor) 80 mg QHS PO Last administered on 12/21/16 20:16 ; Start 12/01/16 at 21:00; Stop 12/31/16 at 20:59 Brinzolamide (Azopt) 1 drop TID OD Last administered on 12/22/16 08:34; Start 12/01/16 at 16:00; Stop 12/31/16 at 15:59 Cefdinir 300 mg 300 mg BID PO Last administered on 12/18/16 21:32; Start 12/17 at 21:00; Stop 12/18/16 at 23:14; Status DC Clonidine HCl (Catapres) 0.2 mg TID PO Last administered on 12/02/16 08:51; Start 12/01/16 at 16:00; Stop 12/02/16 at 09:31; Status DC Clonidine HCl (Catapres) 0.3 mg Q8H PO Last administered on 12/14/16 05:01; Start 12/10/16 at 22:00; Stop 12/14/16 at 06:50; Status DC Clonidine HCl 0.2 mg 0.2 mg Q6H PO Last administered on 12/10/16 12:21; Start 12/02/16 at 12:00; Stop 12/10/16 at 14:31; Status DC Docusate Sodium (Colace) 100 mg BID PO Last administered on 12/21/16 20:16; Start 12/01/16 at 21:00; Stop 12/31/16 at 20:59 Home Med (Med Rec Complete!) ASDIRECTED XX ; Start 12/01/16 at 18:00; Stop at 18:00; Status DC Hydralazine HCl (Apresoline) 25 mg Q6H PO Last administered on 12/22/16 06:24; Start 12/14/16 at 12:00; Stop 01/13/17 at 11:59 Hydrochlorothiazide (Hydrodiuril) 12.5 mg DAILY PO Last administered on 09:30; Start 12/12/16 at 09:00; Stop 12/17/16 at 15:43; Status DC Hydrochlorothiazide (Hydrodiuril) 25 mg DAILY PO Last administered on 09:24; Start 12/02/16 at 09:00; Stop 12/03/16 at 11:46; Status DC Isosorbide Dinitrate (Isordil) 30 mg Q8H PO Last administered on 12/22/16 06:23 ; Start 12/17/16 at 14:00; Stop 01/16/17 at 13:59 Labetalol HCl (Normodyne, Trandate) 300 mg BID PO Last administered on 08:32; Start 12/05/16 at 21:00; Stop 01/04/17 at 20:59 Labetalol HCl (Normodyne, Trandate) 400 mg BID PO Last administered on 21:38; Start 12/01/16 at 21:00; Stop 12/05/16 at 09:28; Status DC Latanoprost (Xalatan 0.005% Op Soln) 1 drop QHS OU Last administered on 20:24; Start 12/01/16 at 21:00; Stop 12/31/16 at 20:59 Levothyroxine Sodium (Synthroid) 0.05 mg DAILY@06 PO Last administered on 06:23; Start 12/02/16 at 06:00; Stop 01/01/17 at 05:59 Losartan Potassium (Cozaar) 100 mg DAILY PO Last administered on 12/17/16 09: 30; Start 12/02/16 at 09:00; Stop 12/17/16 at 15:43; Status DC Magnesium Gluconate (Magnesium Gluconate) 500 mg BID PO Last administered on 09:09; Start 12/01/16 at 21:00; Stop 12/05/16 at 09:36; Status DC Magnesium Hydroxide (Milk Of Magnesia) 30 ml DAILYPRN PRN PO CONSTIPATION Last administered on 12/12/16 15:55; Start 12/01/16 at 14:30; Stop 12/31/16 at 14:29 Miscellaneous (Unresolved Clarification Entry) SEE LABEL COMMENTS UNRESOLVED XX ; Start 12/01/16 at 00:01; Stop 12/01/16 at 17:54; Status DC Pantoprazole Sodium (Protonix) 40 mg DAILY PO Last administered on 12/22/16 08: 33; Start 12/01/16 at 09:00; Stop 12/31/16 at 08:59 Polyethylene Glycol (Miralax) 1 pkt DAILYPRN PRN PO CONSTIPATION; Start at 14:30; Stop 12/31/16 at 14:29 Potassium Chloride (Micro-K Extencaps) 10 meq DAILY PO Last administered on 09:22; Start 12/02/16 at 09:00; Stop 12/03/16 at 12:00; Status DC Potassium Chloride (Micro-K Extencaps) 10 meq DAILY PO Last administered on 12/20 08:51; Start 12/12/16 at 09:00; Stop 12/21/16 at 07:52; Status DC Potassium Chloride (Micro-K Extencaps) 20 meq DAILY PO Last administered on 12/22 08:32; Start 12/21/16 at 09:00; Stop 01/20/17 at 08:59 Potassium Citrate (Urocit-K) 1,080 mg DAILY@08 PO Last administered on 08:00; Start 12/02/16 at 08:00; Stop 01/01/17 at 07:59 Senna (Senokot) 1 tab QHS PO Last administered on 12/18/16 21:31; Start at 21:00; Stop 12/31/16 at 20:59 Sodium Chloride (Nacl 0.9%) 1,000 ml @ 50 mls/hr Q20H IV Last administered on 12/06/16 00:20; Start 12/04/16 at 09:15; Stop 12/06/16 at 10:45; Status DC Timolol Maleate (Timoptic 0.5% Ophth Janine) 1 drop DAILY OU Last administered on 12/22/16 08:34; Start 12/02/16 at 09:00; Stop 01/01/17 at 08:59 Vancomycin HCl/IV Miscellaneous Supplies/Dextrose (Vancomycin HCl/ Adapter-Vial Mate/ Dextrose 5%) 270 ml @ 270 mls/hr Q24H IV Last administered on 12/19/16 13:49; Start 12/19/16 at 14:00; Stop 12/20/16 at 06:51; Status DC MONA HASSAN MD Dec 22, 2016 11:38
[2016-12-22 21:30] VITALS: BP 180/62
[2016-12-22] MEDS: SENNA 8.6 MG TAB (SENOKOT) PO SCH (21:37)
[2016-12-22] MEDS: LATANOPROST 0.005% OPHTH SOLN 2.5 ML OU SCH (21:37)
[2016-12-22] MEDS: ATORVASTATIN 20 MG TAB PO SCH (21:37)
[2016-12-23] MEDS: ISOSORBIDE DIN. (ISORDIL) 30 MG TAB PO SCH ×3 (06:18→21:04)
[2016-12-23] MEDS: LEVOTHYROXINE 0.05 MG TAB (50 MCG) PO SCH (06:18)
[2016-12-23] MEDS: **hydrALAZINE HCL** 25 MG TAB PO SCH ×3 (06:19→18:31)
[2016-12-23 06:30] VITALS: BP 162/54
[2016-12-23 07:10] LABS: BASO % 0.4 % (0.0-1.0); EOS # 0.2 K/mm3 (0.0-0.50); EOS % 2.9 % (0.0-3.0); LARGE UNSTAINED CELL # 0.1 K/mm3 (0.0-0.4); LARGE UNSTAINED CELL % 1.4 % (0.0-4.0); LYMPH # 1.1 K/mm3 (1.5-4.5); LYMPH % 19.1 % (24.0-44.0); MEAN CORPUSCULAR HEMOGLOBIN 28.7 pg (27.0-33.0); MEAN CORPUSCULAR VOLUME 89.9 fl (80.0-96.0); MONO # 0.3 K/mm3 (0.0-0.8); MONO % 4.7 % (0.0-5.0); NEUTROPHILS % 71.4 % (36.0-66.0); PLATELET COUNT, AUTOMATED 261 k/mm3 (150-450); RED CELL DISTRIBUTION WIDTH 14.9 % (11.5-14.5); WHITE BLOOD COUNT 5.6 K/mm3 (4.0-10.0)
[2016-12-23 07:37] LABS: ALBUMIN 2.7 GM/DL (3.2-5.2); ALBUMIN/GLOBULIN RATIO 0.87 (1.00-1.93); BILIRUBIN,TOTAL 0.3 MG/DL (0.2-1.0); CALCIUM LEVEL 8.6 MG/DL (8.8-10.2); CREATININE FOR GFR 1.25 MG/DL (0.55-1.02); GLOMERULAR FILTRATION RATE 44.5 (>39); POTASSIUM SERUM 3.9 MEQ/L (3.5-5.1); TOTAL PROTEIN 5.8 GM/DL (6.4-8.2)
[2016-12-23] MEDS: POTASSIUM CITRATE 1080 MG (10MEQ) TAB PO SCH (08:38)
[2016-12-23] MEDS: POTASSIUM CHLORIDE 10 MEQ SR TABLET PO SCH (08:39)
[2016-12-23] MEDS: DOCUSATE SODIUM 100 MG CAP PO SCH ×2 (08:39→21:04)
[2016-12-23] MEDS: amLODIPine 10 MG TAB PO SCH (08:39)
[2016-12-23] MEDS: LABETALOL 100 MG TAB PO SCH ×2 (08:40→21:03)
[2016-12-23] MEDS: BRINZOLAMIDE 1 % OPHTH SUSP (AZOPT) 10ML OD SCH ×3 (08:41→21:04)
[2016-12-23] MEDS: TIMOLOL MALEATE 0.5% OPHTH SOLN 5 ML OU SCH (08:41)
[2016-12-23] MEDS: APIXABAN 5 MG TAB (ELIQUIS) PO SCH ×2 (08:41→21:02)
[2016-12-23] MEDS: PANTOPRAZOLE 40MG TAB (PROTONIX) PO SCH (08:41)
[2016-12-23 14:00] VITALS: BP 160/65
--- NOTE | 2016-12-23 14:43 | IPNPDOC ---
Intelligence Chief Progress Note DATE OF SERVICE: 12/23/16 DATE OF ADMISSION: Dec 01, 2016 at 15:08 INPATIENT REHABILITATION ADMISSION DAY: #22 SUBJECTIVE: Patient is a 76-year-old white female with left CVA with dense nonfluent aphasia and dense right hemiparesis who is making some progress psych medications. Patient denies any fever or chills or pain today. ALLERGIES: See Below MEDICATIONS ON ADMISSION: Reviewed, see below. OBJECTIVE: VITAL SIGNS: Please see below. PHYSICAL EXAMINATION: GENERAL: Short somewhat overweight elderly white female in no acute distress with right upper extremity has sling. She is alert and oriented to self unclear as far as time orientation and overall situational orientation but does seem to be more oriented to her situation today HEENT: Normocephalic atraumatic decrease in facial droop. CARDIOVASCULAR: Regular rate and rhythm with normal S1-S2, no carotid bruits. LUNGS: All rodriguez clear to auscultation. ABDOMEN: Obese nontender with normal bowel sounds in all quadrants. NEUROLOGICAL: Right hemiparesis continues to be dense more involved in the right upper extremity and lower. LABORATORY DATA: Reviewed. Please see below. MICROBIOLOGY: Please see below. IMAGING: No new. DVT prophylaxis ordered?: Yes ASSESSMENT AND PLAN: 1. Rehabilitation of left CVA: Patient making slightly better progress however will require greater time then we can give her. We'll proceed with community placement using skilled facility. 2. Pneumonia versus atelectasis: Patient max temperature in the last 72 hours is 100.2F and is doing well off IV vancomycin. 3. Hypertension: Patient still with some nocturnal elevations, hospitalists will continue to adjust medications accordingly. TIME SPENT: 20 minutes. Allergies Coded Allergies: Iodine (Verified Allergy, Unknown, 12/01/16) Salicylates (Verified Allergy, Unknown, 12/01/16) Shellfish Allergy (Verified Allergy, Unknown, 12/01/16) Vital Signs Vital Signs Date Time Temp Pulse Resp B/P Pulse Ox O2 Delivery O2 Flow Rate FiO2 12/23/16 14:00 99.8 82 20 160/65 93 12/23/16 09:00 Room Air 12/21/16 06:00 2.0 Laboratory Data CBC/BMP Laboratory Tests 12/23/16 06:49 Calcium Level 8.6 L, Aspartate Amino Transf (AST/SGOT) 22, Alanine Aminotransferase (ALT/SGPT) 24, Alkaline Phosphatase 140 H, Total Bilirubin 0.3 , Total Protein 5.8 L, Albumin 2.7 L, Red Blood Count 3.28 L, Mean Corpuscular Volume 89.9, Mean Corpuscular Hemoglobin 28.7, Mean Corpuscular Hemoglobin Concent 32.0, Red Cell Distribution Width 14.9 H, Neutrophils (%) (Auto) 71.4 H , Lymphocytes (%) (Auto) 19.1 L, Monocytes (%) (Auto) 4.7, Eosinophils (%) (Auto ) 2.9, Basophils (%) (Auto) 0.4, Neutrophils # (Auto) 4.0, Lymphocytes # (Auto) 1.1 L, Monocytes # (Auto) 0.3, Eosinophils # (Auto) 0.2, Basophils # (Auto) 0.0 Labs 24H Laboratory Tests 2 12/23/16 06:49: Blood Urea Nitrogen 21H, Creatinine 1.25H, Sodium Level 143, Potassium Level 3.9 , Chloride Level 109H, Carbon Dioxide Level 26, Calcium Level 8.6L, Aspartate Amino Transf (AST/SGOT) 22, Alanine Aminotransferase (ALT/SGPT) 24, Alkaline Phosphatase 140H, Total Bilirubin 0.3, Total Protein 5.8L, Albumin 2.7L, Albumin /Globulin Ratio 0.87L, Anion Gap 8, White Blood Count 5.6, Red Blood Count 3.28L , Hemoglobin 9.4L, Hematocrit 29.5L, Mean Corpuscular Volume 89.9, Mean Corpuscular Hemoglobin 28.7, Mean Corpuscular Hemoglobin Concent 32.0, Red Cell Distribution Width 14.9H, Platelet Count 261, Neutrophils (%) (Auto) 71.4H, Lymphocytes (%) (Auto) 19.1L, Monocytes (%) (Auto) 4.7, Eosinophils (%) (Auto) 2.9, Basophils (%) (Auto) 0.4, Neutrophils # (Auto) 4.0, Lymphocytes # (Auto) 1.1L, Monocytes # (Auto) 0.3, Eosinophils # (Auto) 0.2, Basophils # (Auto) 0.0, Glomerular Filtration Rate 44.5, Large Unclassified Cells # 0.1, Large Unclassified Cells % 1.4 Microbiology Microbiology 12/18/16 Blood Culture - Preliminary, Resulted No Growth after 72 hours. All specime... 3/30/17 Blood Culture - Preliminary, Resulted No Growth after 72 hours. All specime... 12/17/16 Blood Culture - Final, Complete NO GROWTH AFTER 5 DAYS 12/17/16 Blood Culture - Final, Complete Staphylococcus Hominis Ssp Jasiel 12/20/16 Stool Occult Blood (JOSELYN) - Final, Complete 12/19/16 Respiratory Virus Panel (PCR) (JOSELYN) - Final, Complete Human Metapneumovirus 12/19/16 MRSA Screen - Final, Complete 12/18/16 Urine Culture - Final, Complete 12/17/16 Urine Culture - Final, Complete Current Medications Current Medications Current Medications Acetaminophen (Tylenol Tab) 650 mg Q4HP PRN PO MILD PAIN OR FEVER Last administered on 12/21/16 20:26; Start 12/01/16 at 14:30; Stop 01/16/17 at 14:29 Amlodipine Besylate (Norvasc) 10 mg DAILY PO Last administered on 12/23/16 08: 39; Start 12/02/16 at 09:00; Stop 01/01/17 at 08:59 Apixaban (Eliquis) 5 mg BID PO Last administered on 12/23/16 08:41; Start 12/01 at 21:00; Stop 12/29/16 at 20:59 Atorvastatin Calcium (Lipitor) 80 mg QHS PO Last administered on 12/22/16 21:37 ; Start 12/01/16 at 21:00; Stop 12/31/16 at 20:59 Brinzolamide (Azopt) 1 drop TID OD Last administered on 12/23/16 08:41; Start 12/01/16 at 16:00; Stop 12/31/16 at 15:59 Cefdinir 300 mg 300 mg BID PO Last administered on 12/18/16 21:32; Start 12/17 at 21:00; Stop 12/18/16 at 23:14; Status DC Clonidine HCl (Catapres) 0.2 mg TID PO Last administered on 12/02/16 08:51; Start 12/01/16 at 16:00; Stop 12/02/16 at 09:31; Status DC Clonidine HCl (Catapres) 0.3 mg Q8H PO Last administered on 12/14/16 05:01; Start 12/10/16 at 22:00; Stop 12/14/16 at 06:50; Status DC Clonidine HCl 0.2 mg 0.2 mg Q6H PO Last administered on 12/10/16 12:21; Start 12/02/16 at 12:00; Stop 12/10/16 at 14:31; Status DC Docusate Sodium (Colace) 100 mg BID PO Last administered on 12/23/16 08:39; Start 12/01/16 at 21:00; Stop 12/31/16 at 20:59 Home Med (Med Rec Complete!) ASDIRECTED XX ; Start 12/01/16 at 18:00; Stop at 18:00; Status DC Hydralazine HCl (Apresoline) 25 mg Q6H PO Last administered on 12/23/16 12:46; Start 12/14/16 at 12:00; Stop 01/13/17 at 11:59 Hydrochlorothiazide (Hydrodiuril) 12.5 mg DAILY PO Last administered on 09:30; Start 12/12/16 at 09:00; Stop 12/17/16 at 15:43; Status DC Hydrochlorothiazide (Hydrodiuril) 25 mg DAILY PO Last administered on 09:24; Start 12/02/16 at 09:00; Stop 12/03/16 at 11:46; Status DC Isosorbide Dinitrate (Isordil) 30 mg Q8H PO Last administered on 12/23/16 06:18 ; Start 12/17/16 at 14:00; Stop 01/16/17 at 13:59 Labetalol HCl (Normodyne, Trandate) 300 mg BID PO Last administered on 08:40; Start 12/05/16 at 21:00; Stop 01/04/17 at 20:59 Labetalol HCl (Normodyne, Trandate) 400 mg BID PO Last administered on 21:38; Start 12/01/16 at 21:00; Stop 12/05/16 at 09:28; Status DC Latanoprost (Xalatan 0.005% Op Soln) 1 drop QHS OU Last administered on 21:37; Start 12/01/16 at 21:00; Stop 12/31/16 at 20:59 Levothyroxine Sodium (Synthroid) 0.05 mg DAILY@06 PO Last administered on 06:18; Start 12/02/16 at 06:00; Stop 01/01/17 at 05:59 Losartan Potassium (Cozaar) 100 mg DAILY PO Last administered on 12/17/16 09: 30; Start 12/02/16 at 09:00; Stop 12/17/16 at 15:43; Status DC Magnesium Gluconate (Magnesium Gluconate) 500 mg BID PO Last administered on 09:09; Start 12/01/16 at 21:00; Stop 12/05/16 at 09:36; Status DC Magnesium Hydroxide (Milk Of Magnesia) 30 ml DAILYPRN PRN PO CONSTIPATION Last administered on 12/12/16 15:55; Start 12/01/16 at 14:30; Stop 12/31/16 at 14:29 Miscellaneous (Unresolved Clarification Entry) SEE LABEL COMMENTS UNRESOLVED XX ; Start 12/01/16 at 00:01; Stop 12/01/16 at 17:54; Status DC Pantoprazole Sodium (Protonix) 40 mg DAILY PO Last administered on 12/23/16 08: 41; Start 12/01/16 at 09:00; Stop 12/31/16 at 08:59 Polyethylene Glycol (Miralax) 1 pkt DAILYPRN PRN PO CONSTIPATION; Start at 14:30; Stop 12/31/16 at 14:29 Potassium Chloride (Micro-K Extencaps) 10 meq DAILY PO Last administered on 09:22; Start 12/02/16 at 09:00; Stop 12/03/16 at 12:00; Status DC Potassium Chloride (Micro-K Extencaps) 10 meq DAILY PO Last administered on 12/20 08:51; Start 12/12/16 at 09:00; Stop 12/21/16 at 07:52; Status DC Potassium Chloride (Micro-K Extencaps) 20 meq DAILY PO Last administered on 12/23 08:39; Start 12/21/16 at 09:00; Stop 01/20/17 at 08:59 Potassium Citrate (Urocit-K) 1,080 mg DAILY@08 PO Last administered on 08:38; Start 12/02/16 at 08:00; Stop 01/01/17 at 07:59 Senna (Senokot) 1 tab QHS PO Last administered on 12/22/16 21:37; Start at 21:00; Stop 12/31/16 at 20:59 Sodium Chloride (Nacl 0.9%) 1,000 ml @ 50 mls/hr Q20H IV Last administered on 12/06/16 00:20; Start 12/04/16 at 09:15; Stop 12/06/16 at 10:45; Status DC Timolol Maleate (Timoptic 0.5% Ophth Janine) 1 drop DAILY OU Last administered on 12/23/16 08:41; Start 12/02/16 at 09:00; Stop 01/01/17 at 08:59 Vancomycin HCl/IV Miscellaneous Supplies/Dextrose (Vancomycin HCl/ Adapter-Vial Mate/ Dextrose 5%) 270 ml @ 270 mls/hr Q24H IV Last administered on 12/19/16 13:49; Start 12/19/16 at 14:00; Stop 12/20/16 at 06:51; Status DC MONA HASSAN MD Dec 23, 2016 14:43
[2016-12-23] MEDS: SENNA 8.6 MG TAB (SENOKOT) PO SCH (21:02)
[2016-12-23] MEDS: ATORVASTATIN 20 MG TAB PO SCH (21:04)
[2016-12-23] MEDS: LATANOPROST 0.005% OPHTH SOLN 2.5 ML OU SCH (21:04)
[2016-12-23 21:15] VITALS: BP 172/62
[2016-12-24] MEDS: **hydrALAZINE HCL** 25 MG TAB PO SCH ×2 (00:43→06:13)
[2016-12-24 06:00] VITALS: BP 178/60
[2016-12-24] MEDS: ISOSORBIDE DIN. (ISORDIL) 30 MG TAB PO SCH (06:13)
[2016-12-24] MEDS: LEVOTHYROXINE 0.05 MG TAB (50 MCG) PO SCH (06:14)
[2016-12-24 07:03] LABS: BASO % 0.4 % (0.0-1.0); EOS # 0.2 K/mm3 (0.0-0.50); EOS % 3.1 % (0.0-3.0); LARGE UNSTAINED CELL # 0.1 K/mm3 (0.0-0.4); LYMPH # 1.2 K/mm3 (1.5-4.5); MEAN CORPUSCULAR HEMOGLOBIN 28.4 pg (27.0-33.0); MEAN CORPUSCULAR HGB CONC 31.7 g/dl (32.0-36.5); MEAN CORPUSCULAR VOLUME 89.4 fl (80.0-96.0); MONO # 0.3 K/mm3 (0.0-0.8); NEUTROPHILS # 3.9 K/mm3 (1.8-7.7); NEUTROPHILS % 69.4 % (36.0-66.0); PLATELET COUNT, AUTOMATED 256 k/mm3 (150-450); RED CELL DISTRIBUTION WIDTH 14.6 % (11.5-14.5); WHITE BLOOD COUNT 5.6 K/mm3 (4.0-10.0)
[2016-12-24 07:04] LABS: ALBUMIN 2.7 GM/DL (3.2-5.2); ALBUMIN/GLOBULIN RATIO 0.93 (1.00-1.93); BILIRUBIN,TOTAL 0.3 MG/DL (0.2-1.0); CALCIUM LEVEL 8.4 MG/DL (8.8-10.2); CREATININE FOR GFR 1.11 MG/DL (0.55-1.02); POTASSIUM SERUM 3.9 MEQ/L (3.5-5.1); TOTAL PROTEIN 5.6 GM/DL (6.4-8.2)
[2016-12-24] MEDS: POTASSIUM CITRATE 1080 MG (10MEQ) TAB PO SCH (08:15)
[2016-12-24] MEDS: DOCUSATE SODIUM 100 MG CAP PO SCH (08:16)
[2016-12-24] MEDS: LABETALOL 100 MG TAB PO SCH (08:16)
[2016-12-24] MEDS: POTASSIUM CHLORIDE 10 MEQ SR TABLET PO SCH (08:16)
[2016-12-24 08:17] VITALS: BP 178/60
[2016-12-24] MEDS: BRINZOLAMIDE 1 % OPHTH SUSP (AZOPT) 10ML OD SCH (08:17)
[2016-12-24] MEDS: amLODIPine 10 MG TAB PO SCH (08:17)
[2016-12-24] MEDS: APIXABAN 5 MG TAB (ELIQUIS) PO SCH (08:17)
[2016-12-24] MEDS: PANTOPRAZOLE 40MG TAB (PROTONIX) PO SCH (08:17)
[2016-12-24] MEDS: TIMOLOL MALEATE 0.5% OPHTH SOLN 5 ML OU SCH (08:17)
[2016-12-24] MEDS ORDERED: SENN1TAB4 PO (09:11)
[2016-12-24] MEDS ORDERED: POTA10CA PO (09:11)
[2016-12-24] MEDS ORDERED: MAPA325T2 PO (09:12)
[2016-12-24] MEDS ORDERED: LABE10TAB PO (09:12)
[2016-12-24] MEDS ORDERED: HYDR25TA PO (09:12)
[2016-12-24] MEDS ORDERED: ISOS30TAB PO (09:12)
[2016-12-24] MEDS ORDERED: PANT40TA2 PO (09:12)
[2016-12-24] MEDS ORDERED: PEG1POW PO (09:12)
[2016-12-24] MEDS ORDERED: MILKSUS PO (09:12)
--- NOTE | 2016-12-24 13:01 | PMRDS ---
DATE OF ADMISSION: 12/01/2016 DATE OF DISCHARGE: 12/24/2016 DISCHARGE DIAGNOSES: Rehabilitation of left frontal parietal acute cerebrovascular accident (CVA) with noted subdural hematoma. 1a. Nonfluent aphasia, fairly dense. 1b. Right hemiparesis, dense right upper extremity, moderate right lower extremity. HISTORY: The patient is a 76-year-old white female who has a long history of paroxysmal atrial fibrillation and had been cardioverted on aspirin at [facility] on 11/20/2016 with hypertensive urgency. The patient while being assessed on 11/20/2016 was found to have garbled speech and facial droop. A CT scan was done showing small left subarachnoid hemorrhage. The patient transferred to [facility] and admitted to the neurological intensive care unit (ICU). The patient was found to have on MRI left middle cerebral artery (MCA) infarct noted above with normal MRA and normal electroencephalogram (EEG) reviewing for seizures. She also developed right lower extremity deep venous thrombosis (DVT) and started on Eliquis 5 mg twice a day for that. She was discharged on five antihypertensive medicines. Was having problems with urinary retention and was using a catheter. Under treatment on the regular floor on 12/01/2016, the patient was felt to be stable for discharge to the [facility] Rehabilitation Unit. Since arrival, the patient has been assessed by physical occupational speech and rehabilitation nursing, as well as obiee architect, and started on a program of neurorehabilitation. She has made fairly slow and limited progress on recovery from the aphasia and the hemiparesis, and her course has been along the line complicated by episodic moderately severe hypertensive episodes with systolic blood pressures up into the mid-180s systolically. However, diastolic blood pressures have tended to remain in the 60-80 range. The patient also with periods of anxiousness and then developed periods of fevers episodically to a maximum of 102.4 but usually 99 or 100 degrees Fahrenheit. Evaluation has shown atelectasis in the left lower lobe with some possible infiltrates. However, blood cultures times four have been negative. Urine cultures have been negative times two. Stool occult specimen has been negative. Nasal swab did show metapneumovirus positive. The patient while pending a second set of blood cultures was treated for 2 days on vancomycin intravenous (IV); and on negative culture result, this was discontinued. However, the patient has continued to episodically have the low-grade fevers of 99-100 degrees Fahrenheit. The patient otherwise has been participating to her ability in physical therapy (PT), occupational therapy (OT), and speech therapy, and recently has been showing improved progress and using communication board and following directions and generating short-syllable speech. She has shown no signs of shoulder-hand syndrome. She has been using a sling for support. She is able to be aware of bowel and bladder and remained continent and is requiring assistance for transfers. The patient due to the lack of progress is felt to require longer-term care and is being discharged today to the [facility] in [place], [place]. PROCEDURES PERFORMED: Include: 1. Electrocardiogram (EKG). 2. Chest x-ray. 3. CT chest. 4. CT head. 5. Swallow study. The patient showed no aspiration on the swallow study. CT head was consistent with previously-described deficits. Chest x-ray showed the left lower quadrant atelectasis at the base and possible infiltrates in the upper aspect of the left lower lobe. However, this now felt to be atelectasis, and chest x-ray was a portable and poor quality and was unable to show the left lower lobe but otherwise was clear. DIAGNOSTIC LABORATORY TESTING: Has shown moderate anemia with hemoglobin of 9.4 and hematocrit of 29.5 that has been relatively stable for the last 2 weeks. Comprehensive metabolic panel showing sodium and potassium normal, mildly elevated chloride currently 111 with upper normal 107, normal carbon dioxide, BUN mildly elevated at 22, and creatinine mildly elevated at 1.11, with a GFR of 51.0. Calcium is low at 8.4, reflecting the hypoalbuminemia of 2.7 and total protein of 5.6. Liver function tests were normal except alkaline phosphatase mildly elevated at 145. HOSPITAL COURSE: As noted above. DISCHARGE MEDICATIONS: - Tylenol 650 mg every 4 hours as needed mild pain or fever - hydralazine 25 mg by mouth every 6 hours - isosorbide dinitrate 30 mg by mouth every 8 hours - labetalol hydrochloride 100 mg tablets three tablets or 300 mg by mouth twice a day - milk of magnesia 30 mL as needed daily for constipation - pantoprazole sodium 40 mg by mouth every day for gastroesophageal reflux disease (GERD) - MiraLAX one packet by mouth daily as needed constipation - potassium chloride 20 mEq by mouth every day - senna 8.6 mg by mouth nightly - amlodipine 10 mg by mouth every day - apixaban base 5 mg by mouth twice a day for anticoagulation - atorvastatin 80 mg by mouth nightly - brinzolamide 1% suspension one drop OD three times a day - latanoprost 50 drop/2.5 mL solution, one drop both eyes (OU) nightly - levothyroxine 50 mcg by mouth every day for hypothyroidism - potassium citrate 1080 mg tablet by mouth every day - timolol maleate 0.5% solution one drop OU daily COMPLICATIONS: The patient's intermittent fevers and hypertension as noted above. DISPOSITION/PLAN: The patient discharged to [facility] in [place], [place], for continuing physical, occupational, speech therapy and ongoing medical management. DISCHARGE DIAGNOSES: 1. Left cerebrovascular accident with right hemiparesis and nonfluent aphasia. 2. Left subacute subdural hematoma. 3. Hypertension. 4. Paroxysmal atrial fibrillation. 5. Hypothyroidism. 6. Atelectasis. 7. Gastroesophageal reflux disease. 8. Glaucoma. PAST SURGICAL HISTORY: Includes tonsillectomy. PROCEDURAL HISTORY: Includes cardioversion in the past and more recently as noted in the history given above. cc: Dr. Hassan, [facility], [facility]
== END 2016-12-24 11:14 | DRG 57 ==
LOC: M PM&R 12-01 15:08
PROVIDERS: ADMIT Physical Medicine & Rehabilitation; ATTEND Physical Medicine & Rehabilitation
DX: I69.020 Aphasia following nontraumatic subarachnoid hemorrhage (principal); I69.051 Hemiplegia and hemiparesis following nontraumatic subarachnoid hemorrhage affecting right dominant side; N17.9 Acute kidney failure, unspecified; I69.022 Dysarthria following nontraumatic subarachnoid hemorrhage; I69.091 Dysphagia following nontraumatic subarachnoid hemorrhage; R26.9 Unspecified abnormalities of gait and mobility; I10 Essential (primary) hypertension; Z86.718 Personal history of other venous thrombosis and embolism; R33.9 Retention of urine, unspecified; I48.0 Paroxysmal atrial fibrillation; E03.9 Hypothyroidism, unspecified; Z82.49 Family history of ischemic heart disease and other diseases of the circulatory system; Z79.899 Other long term (current) drug therapy; Z79.02 Long term (current) use of antithrombotics/antiplatelets; Z91.041 Radiographic dye allergy status; Z91.048 Other nonmedicinal substance allergy status; E87.6 Hypokalemia; E83.42 Hypomagnesemia; D64.9 Anemia, unspecified